=== PATIENT | female | born 1935 | race Caucasian/White ===

== ENCOUNTER → 2016-05-15 | Outpatient (CLI) | payer BC ==
[~2016-05-15] MED LIST: ACET500C35 PO; ATV5 PO; CALC-354 PO; LORA-741 PO; MRLP17 PO; OFLO0.3S4 OPR; PRED1SUS3; SIMV10TA2 PO
--- NOTE | 2016-05-17 12:48 | MAMMOGRAPHY REPORT ---
BILATERAL DIGITAL SCREENING MAMMOGRAM TOMOSYNTHESIS WITH CAD: 05/15/2016 CLINICAL HISTORY: Routine screening. Patient has no complaints. TECHNIQUE: Breast tomosynthesis in addition to standard 2D mammography was performed. Current study was also evaluated with a Computer Aided Detection (CAD) system. COMPARISON: Comparison is made to exams dated: 05/12/2015 mammogram, 05/07/2013 mammogram, 05/08/2014 curt mogram, 05/17/2012 mammogram, 05/17/2011 mammogram, and 05/13/2010 mammogram - [facility]. BREAST COMPOSITION: There are scattered areas of fibroglandular density in both breasts. FINDINGS: There are possible clustered microcalcifications in the upper outer posterior right breas t, for which additional spot magnification views are recommended. There is stable focal asymmetry in the anterior subareolar right breast, unchanged dating back to at least 05/12/2009, therefore likely benign. No other suspicious mass, architectural distortion or cl uster of microcalcifications is seen. IMPRESSION: ACR BI-RADS CATEGORY 0: INCOMPLETE EVALUATION: NEED ADDITIONAL IMAGING EVALUATION The possible clustered microcalcifications in the right upper outer quadrant need additional evaluat ion. The patient will be called to schedule an appointment. Approximately 10% of breast cancers are not detected with mammography. A negative mammographic repor t should not delay biopsy if a clinically suggestive mass is present. Sintia Moreau M.D. ay/:05/16/2016 17:26:44 Hand Sole Sewer: Edith JACKSON(Nii)(Yong), [facility] letter sent: Addl Imaging 0 BI-RADS Code: ACR BI-RADS Category 0: Incomplete Evaluation: Need Additional Imaging Evaluation
== END | disposition home or self-care (01) ==
LOC: C.MAMM 11:24
PROVIDERS: ATTEND Family Medicine
DX: Z12.31 Encounter for screening mammogram for malignant neoplasm of breast (principal); R92.8 Other abnormal and inconclusive findings on diagnostic imaging of breast

== ENCOUNTER → 2016-05-29 | Outpatient (CLI) | payer BC ==
--- NOTE | 2016-05-29 13:19 | MAMMOGRAPHY REPORT ---
UNILATERAL RIGHT DIGITAL DIAGNOSTIC MAMMOGRAM AND TARGETED RIGHT ULTRASOUND: 05/29/2016 CLINICAL HISTORY: 81-year-old woman called back from screening mammography for possible increasing m icrocalcifications in the right upper outer quadrant. At the time of diagnostic consultation, she al so reported an abnormal sensation behind the right nipple ("pins and needles") for which further son ographic evaluation was performed. TECHNIQUE: Spot magnification right CC and ML views were obtained. COMPARISON: Comparison is made to exams dated: 05/15/2016 mammogram, 05/12/2015 mammogram, 05/08/2014 ma mmogram, 05/07/2013 mammogram, 05/17/2012 mammogram, and 05/17/2011 mammogram - [facility]. BREAST COMPOSITION: There are scattered areas of fibroglandular density in the right breast. FINDINGS: Spot magnification views demonstrate a loose grouping of round and punctate microcalcific ations measuring 7 mm, in the upper outer middle to posterior right breast. No obvious associated a symmetry, mass or architectural distortion. When comparing back to prior available mammograms, the largest to my calcifications have been present dating back to at least 2008 but some of the smaller punctate microcalcifications are increased. This grouping is therefore indeterminate, warranting fu rther evaluation with tissue sampling. Targeted ultrasound was performed in the area of abnormal sensation around the areola and nipple of the right breast. No suspicious solid or cystic mass is identified. IMPRESSION: ACR BI-RADS CATEGORY 4: SUSPICIOUS, TARGETED ULTRASOUND ACR BI-RADS CATEGORY 4: SUSPICI OUS 1. Stereotactic guided right breast biopsy is recommended for a 7 mm loose grouping of round and pu nctate microcalcifications in the upper outer quadrant, slightly increased comparing to prior mammog vladislav. 2. No suspicious abnormality or evidence of malignancy seen on targeted ultrasound in an area of ab normal pins and needles sensation in the right subareolar breast. Therefore, clinical follow-up is recommended. These results and recommendations were discussed with the patient at the time of the exam. She tent atively scheduled right breast biopsy prior to leaving our department. Approximately 10% of breast cancers are not detected with mammography. A negative mammographic repor t should not delay biopsy if a clinically suggestive mass is present. Sintia Moreau M.D. ay/:05/29/2016 12:21:17 Storekeeper Steward: Jose Oquendo RT(R)(M), [facility] letter sent: Abnormal 4/5 BI-RADS Code: ACR BI-RADS Category 4: Suspicious Ultrasound BI-RADS: ACR BI-RADS Category 4: Suspic ious
== END | disposition home or self-care (01) ==
LOC: C.MAMM 09:56
PROVIDERS: ATTEND Internal Medicine Pulmonary Disease
DX: R92.0 Mammographic microcalcification found on diagnostic imaging of breast (principal)

== ENCOUNTER → 2016-06-01 | Outpatient (CLI) | payer BC ==
[2016-06-01 10:53] LABS: CHOLESTEROL/HDL RATIO 3.8
== END | disposition home or self-care (01) ==
LOC: C.LAB1850 09:28
PROVIDERS: ATTEND Family Medicine
DX: E78.5 Hyperlipidemia, unspecified (principal)

== ENCOUNTER 2016-06-19 12:35 | Emergency (ER) | payer BC ==
[~2016-06-19] VITALS: Ht 161.3 cm; Wt 72.6 kg
[~2016-06-19 12:35] MED LIST changes: -CALC-354 PO; -LORA-741 PO; -MRLP17 PO
[2016-06-19 12:40] VITALS: TEMP 36.7; Ht 161.3 cm; Wt 72.6 kg
[2016-06-19] MEDS ORDERED: LORA-741 PO (13:17)
[2016-06-19] MEDS ORDERED: MRLP17 PO (13:17)
--- NOTE | 2016-06-19 13:44 | DIAGNOSTIC IMAGING REPORT ---
PELVIS 1 OR 2 VIEW ROUTINE CLINICAL HISTORY: Pelvic pain status post trauma COMPARISON STUDY: No previous studies for comparison. FINDINGS: There is no SI joint diastases. There is no symphysis diastases. No fractures are visualized. Degenerative changes are present within the lower lumbar spine. IMPRESSION: No acute fractures identified. Electronically signed by: Sarabjit Kruger M.D. 06/19/2016 1:42 PM Dictated Date/Time: 06/19/2016 1:42 PM
[2016-06-19 14:17] LABS: BASO % 0.2 %; BASO ABS # 0.02 K/uL (0-0.2); COMPLETE YES; EOS % 2.4 %; HEMATOCRIT 41.2 % (37-47); IG% 0.2 %; LYMPH % 14.9 %; LYMPH ABS # 1.43 K/uL (1.2-3.4); MEAN CELL VOLUME 89.2 fL (80-100); MEAN CORPUSCULAR HEMOGLOBIN 30.3 pg (25-34); MEAN PLATELET VOLUME 9.3 fL (7.4-10.4); MONO % 4.2 %; NEUT % 78.1 %; PLATELET COUNT 285 K/uL (130-400); RED BLOOD COUNT 4.62 M/uL (4.2-5.4); WHITE BLOOD COUNT 9.61 K/uL (4.8-10.8)
[2016-06-19] MEDS ORDERED: CALC-354 PO (14:21)
[2016-06-19 14:25] LABS: BLOOD UREA NITROGEN 27 mg/dl (7-18); BUN/CREATININE RATIO 27.1 (10-20); CALCIUM 9.6 mg/dl (8.5-10.1); CARBON DIOXIDE 30 mmol/L (21-32); CHLORIDE 110 mmol/L (98-107); GLUCOSE 117 mg/dl (70-99); POTASSIUM 3.9 mmol/L (3.5-5.1); SODIUM 146 mmol/L (136-145)
[2016-06-19 14:51] LABS: PROTHROMBIN TIME (PATIENT) 10.2 SECONDS (9.0-12.0)
--- NOTE | 2016-06-19 17:17 | DIAGNOSTIC IMAGING REPORT ---
MRI OF THE BRAIN WITHOUT IV CONTRAST CLINICAL HISTORY: Fall. Leg weakness. COMPARISON STUDY: No priors. TECHNIQUE: MRI of the brain was performed utilizing various T1 and T2-weighted sequences in the axial, sagittal, and coronal planes. IV contrast was not administered for this examination. FINDINGS: Brain parenchyma: There are age-related involutional changes noting mild to moderate patchy subcortical and periventricular microangiopathic disease. There is no hemorrhage or mass effect. There is no restricted diffusion to suggest acute ischemia. Ellis-white matter differentiation is preserved. No extra-axial fluid collection is seen. The cerebellar tonsils are normal in configuration. Ventricles, sulci, and cisterns: Prominent secondary to involutional change. Pituitary and sella: Unremarkable. Intracranial vasculature: Normal flow voids are maintained at the skull base. Orbits: The bony orbits are grossly intact. Orbital contents are normal in appearance noting a right ocular lens implant. Sinuses and mastoids: Clear. Calvarium: Unremarkable. Cervical cord: Partially visualized cervical spinal cord is normal in morphology and signal intensity. IMPRESSION: No acute intracranial abnormality. Electronically signed by: Mark Mitchell M.D. 06/19/2016 5:15 PM Dictated Date/Time: 06/19/2016 5:13 PM
[2016-06-19] MEDS ORDERED: GADAVIST IV PRN (18:30)
--- NOTE | 2016-06-19 18:32 | DIAGNOSTIC IMAGING REPORT ---
MRI OF THE LUMBAR SPINE COMBO CLINICAL HISTORY: Fall. Leg weakness. COMPARISON STUDY: No priors. TECHNIQUE: MRI of the lumbar spine is performed utilizing various T1 and T2-weighted sequences in the axial and sagittal planes. Contrast-enhanced sequences were acquired following the IV administration of 7 cc of Gadavist. FINDINGS: Lumbar spine: Vertebral body height and alignment are maintained throughout the lumbar spine. There is straightening of the lumbar lordosis. The transverse and spinous processes are intact as imaged. There is no evidence of spondylolysis. No destructive bony lesion is seen. Degenerative endplate edema is seen from T12-L1 through L4-L5. Intervertebral discs: There is degenerative disc desiccation and loss of height throughout the lumbar spine. Loss of height is moderate at all levels, and severe at L3-L4 and L4-L5. Spinal cord: The visualized spinal cord is normal in morphology and signal intensity. The conus medullaris terminates at the level of L1. The nerve roots of the cauda equina are normal in morphology and signal intensity. No abnormal enhancement is identified on the postcontrast series. T12-L1: There is a posterior disc bulge with annular fissure. There is no significant acquired compromise of the central canal. Bilateral subarticular stenosis is observed. L1-L2: There is broad-based posterior disc bulging with annular fissure. In conjunction with hypertrophy of the ligamentum flavum there is mild acquired compromise of the central canal with a minimum AP diameter of 9 mm. There is bilateral subarticular stenosis, with possible impingement on the exiting bilateral L1 nerve roots. There is moderate left-sided neural foraminal stenosis secondary to facet arthropathy. L2-L3: There is broad-based posterior disc bulge eccentric to the left. There is no significant acquired compromise of the central canal at this level. There is bilateral subarticular stenosis, left greater than right. There may be impingement on the exiting left L2 nerve root. Facet arthropathy causes mild left-sided neural foraminal stenosis. L3-L4: There is broad-based posterior disc bulge. In conjunction with hypertrophy of the ligamentum flavum there is moderate acquired compromise of the central canal at this level with a minimum AP diameter of 6 mm. There is bilateral subarticular stenosis, with possible impingement on the exiting left L3 nerve root. The disc bulge likely abuts the transiting bilateral L4 nerve roots. L4-L5: There is broad-based posterior disc bulging with annular fissure. In conjunction with hypertrophy of the ligamentum flavum there is mild to moderate acquired compromise of the central canal at this level. The minimum AP canal diameter measures 5.5 mm. There is bilateral subarticular stenosis, with probable impingement on the exiting bilateral L4 and the transiting bilateral L5 nerve roots. Facet arthropathy causes mild bilateral neural foraminal stenosis. L5-S1: There is a small posterior disc bulge. In conjunction with hypertrophy of the ligamentum flavum there is mild acquired compromise of the central canal at this level with a minimum AP diameter of 6.5 mm. There is bilateral subarticular stenosis. The neural foramina appear clear. Facet arthropathy is of no consequence. Sacrum: The imaged sacrum is normal in morphology and signal intensity. Soft tissues: There is diffuse fatty atrophy of the paraspinous and psoas musculature. The partially imaged retroperitoneal structures are grossly unremarkable but incompletely evaluated. IMPRESSION: 1. Degenerative disc disease as above with multilevel degenerative endplate edema. 2. Moderate multilevel lumbosacral spondylosis with multilevel acquired compromise of the central canal. See discussion for detailed level by level analysis. 3. No fracture is identified. 4. There is no evidence of hematoma or posttraumatic abnormality. Dictated: 06/19/2016 5:42 PM Transcribed: 06/19/2016 6:31 PM Giuliano Electronically signed by: Mark Mitchell M.D. 06/19/2016 6:32 PM Dictated Date/Time: 06/19/2016 5:42 PM
--- NOTE | 2016-06-19 18:48 | EMERGENCY ROOM VISIT NOTE ---
History Report prepared by Rock: Louisa Mcmanus Under the Supervision of: Dr. Ousmane Beck M.D. 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 She has difficulty getting up from the ground. Today she was standing on a stool around 10 inches high outside in the bushes cleaning her windows. She went to step down from the stool, but fell and landed on her left buttock on a oleary root. She states that her leg weakness may have caused the fall. She was unable to get up from the ground and had to crawl to the patio to call her [id number]. She was walking normally prior to the fall. She is weak in both legs, but more weak in her left. She denies hitting her head, headache, neck pain, or arm weakness. She denies any chest pain, SOB, loss of bowel or bladder control or numbness in the genital area. She has not had any troubles with her speech. She notes that she had a bulging disc 7 years ago and had an epidural which left some chronic numbness in her left thigh muscle. She has not had any problems with her disc since then. She has a history of high cholesterol. Her brother had an abdominal aortic aneurysm but she denies any abdominal pain or back pain. 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 Pt denies head injury, arm weakness, loss of bowel or bladder control, numbness in genital area, speech difficulties. Review of Systems See HPI for pertinent positives & negatives. A total of 10 systems reviewed and were otherwise negative. Past Medical & Surgical Medical Problems: (1) High cholesterol Family History Abdominal aortic aneurysm (AAA) Social History Smoking Status: Never Smoker Marital Status: Occupation Status: retired Current/Historical Medications Scheduled Calcium Carbonate-Cholecalcife (Caltrate 600+D), 1 TAB PO TID Lorazepam (Ativan), 0.25 MG PO QPM Polyethylene (Miralax), 17 GM PO QPM Simvastatin (Zocor), 10 MG PO QPM Allergies Coded Allergies: Codeine (Verified Adverse Reaction, Unknown, "VERY SENSITIVE", 06/19/16) Physical Exam Vital Signs Date Time Temp Pulse Resp B/P Pulse Ox O2 Delivery O2 Flow Rate FiO2 06/19/16 16:25 108 18 128/88 98 Room Air 06/19/16 14:39 103 18 151/96 96 Room Air 06/19/16 13:01 112 06/19/16 12:40 36.7 118 18 151/79 91 Room Air Physical Exam Constitutional: Vital signs reviewed. Eyes: Pupils are equal round reactive to light. Conjunctiva are noninjected. ENT: Pharynx is clear without erythema or exudate. Mucous membranes are moist. Neck supple without meningeal signs. No midline tenderness to the cervical spine. Respiratory: Clear to auscultation bilaterally. Breath sounds are equal bilaterally. Cardiovascular: Regular rate and rhythm. No rubs or gallops. GI: Soft, nondistended and nontender. Bowel sounds are present. Musculoskeletal: No peripheral edema. No lower extremity tenderness. Integumentary: No cyanosis. Neurological: The patient is awake and alert. Cranial nerves II-XII are intact. Motor is 5 out of 5 all extremities. Numbness to the proximal left thigh anteriorly otherwise sensation is intact throughout the lower extremities and arms. No saddle anesthesia. Normal speech. No pronator drift. No limb ataxia. The patient was able to stand up only with assistance and felt unsteady. Psychiatric: Normal affect. Medical Decision & Procedures ER Provider Diagnostic Interpretation: X-ray results as stated below per interpretation by me and the radiologist. Radiology results as stated below per my review and the radiologist's interpretation: PELVIS 1 OR 2 VIEW ROUTINE CLINICAL HISTORY: Pelvic pain status post trauma COMPARISON STUDY: No previous studies for comparison. FINDINGS: There is no SI joint diastases. There is no symphysis diastases. No fractures are visualized. Degenerative changes are present within the lower lumbar spine. IMPRESSION: No acute fractures identified. Electronically signed by: Sarabjit Kruger M.D. 06/19/2016 1:42 PM Dictated Date/Time: 06/19/2016 1:42 PM MRI OF THE BRAIN WITHOUT IV CONTRAST CLINICAL HISTORY: Fall. Leg weakness. COMPARISON STUDY: No priors. TECHNIQUE: MRI of the brain was performed utilizing various T1 and T2-weighted sequences in the axial, sagittal, and coronal planes. IV contrast was not administered for this examination. FINDINGS: Brain parenchyma: There are age-related involutional changes noting mild to moderate patchy subcortical and periventricular microangiopathic disease. There is no hemorrhage or mass effect. There is no restricted diffusion to suggest acute ischemia. Ellis-white matter differentiation is preserved. No extra-axial fluid collection is seen. The cerebellar tonsils are normal in configuration. Ventricles, sulci, and cisterns: Prominent secondary to involutional change. Pituitary and sella: Unremarkable. Intracranial vasculature: Normal flow voids are maintained at the skull base. Orbits: The bony orbits are grossly intact. Orbital contents are normal in appearance noting a right ocular lens implant. Sinuses and mastoids: Clear. Calvarium: Unremarkable. Cervical cord: Partially visualized cervical spinal cord is normal in morphology and signal intensity. IMPRESSION: No acute intracranial abnormality. Electronically signed by: Mark Mitchell M.D. 06/19/2016 5:15 PM Dictated Date/Time: 06/19/2016 5:13 PM MRI OF THE LUMBAR SPINE COMBO CLINICAL HISTORY: Fall. Leg weakness. COMPARISON STUDY: No priors. TECHNIQUE: MRI of the lumbar spine is performed utilizing various T1 and T2-weighted sequences in the axial and sagittal planes. Contrast-enhanced sequences were acquired following the IV administration of 7 cc of Gadavist. FINDINGS: Lumbar spine: Vertebral body height and alignment are maintained throughout the lumbar spine. There is straightening of the lumbar lordosis. The transverse and spinous processes are intact as imaged. There is no evidence of spondylolysis. No destructive bony lesion is seen. Degenerative endplate edema is seen from T12-L1 through L4-L5. Intervertebral discs: There is degenerative disc desiccation and loss of height throughout the lumbar spine. Loss of height is moderate at all levels, and severe at L3-L4 and L4-L5. Spinal cord: The visualized spinal cord is normal in morphology and signal intensity. The conus medullaris terminates at the level of L1. The nerve roots of the cauda equina are normal in morphology and signal intensity. No abnormal enhancement is identified on the postcontrast series. T12-L1: There is a posterior disc bulge with annular fissure. There is no significant acquired compromise of the central canal. Bilateral subarticular stenosis is observed. L1-L2: There is broad-based posterior disc bulging with annular fissure. In conjunction with hypertrophy of the ligamentum flavum there is mild acquired compromise of the central canal with a minimum AP diameter of 9 mm. There is bilateral subarticular stenosis, with possible impingement on the exiting bilateral L1 nerve roots. There is moderate left-sided neural foraminal stenosis secondary to facet arthropathy. L2-L3: There is broad-based posterior disc bulge eccentric to the left. There is no significant acquired compromise of the central canal at this level. There is bilateral subarticular stenosis, left greater than right. There may be impingement on the exiting left L2 nerve root. Facet arthropathy causes mild left-sided neural foraminal stenosis. L3-L4: There is broad-based posterior disc bulge. In conjunction with hypertrophy of the ligamentum flavum there is moderate acquired compromise of the central canal at this level with a minimum AP diameter of 6 mm. There is bilateral subarticular stenosis, with possible impingement on the exiting left L3 nerve root. The disc bulge likely abuts the transiting bilateral L4 nerve roots. L4-L5: There is broad-based posterior disc bulging with annular fissure. In conjunction with hypertrophy of the ligamentum flavum there is mild to moderate acquired compromise of the central canal at this level. The minimum AP canal diameter measures 5.5 mm. There is bilateral subarticular stenosis, with probable impingement on the exiting bilateral L4 and the transiting bilateral L5 nerve roots. Facet arthropathy causes mild bilateral neural foraminal stenosis. L5-S1: There is a small posterior disc bulge. In conjunction with hypertrophy of the ligamentum flavum there is mild acquired compromise of the central canal at this level with a minimum AP diameter of 6.5 mm. There is bilateral subarticular stenosis. The neural foramina appear clear. Facet arthropathy is of no consequence. Sacrum: The imaged sacrum is normal in morphology and signal intensity. Soft tissues: There is diffuse fatty atrophy of the paraspinous and psoas musculature. The partially imaged retroperitoneal structures are grossly unremarkable but incompletely evaluated. IMPRESSION: 1. Degenerative disc disease as above with multilevel degenerative endplate edema. 2. Moderate multilevel lumbosacral spondylosis with multilevel acquired compromise of the central canal. See discussion for detailed level by level analysis. 3. No fracture is identified. 4. There is no evidence of hematoma or posttraumatic abnormality. Electronically signed by: Mark Mitchell M.D. 06/19/2016 6:32 PM Dictated Date/Time: 06/19/2016 5:42 PM Laboratory Results 06/19/16 13:25 Red Blood Count 4.62, Mean Corpuscular Volume 89.2, Mean Corpuscular Hemoglobin 30.3, Mean Corpuscular Hemoglobin Concent 34.0, Mean Platelet Volume 9.3, Neutrophils (%) (Auto) 78.1, Lymphocytes (%) (Auto) 14.9, Monocytes (%) (Auto) 4.2, Eosinophils (%) (Auto) 2.4, Basophils (%) (Auto) 0.2, Neutrophils # (Auto) 7.51, Lymphocytes # (Auto) 1.43, Monocytes # (Auto) 0.40, Eosinophils # (Auto) 0.23, Basophils # (Auto) 0.02 06/19/16 13:25 Test 06/19/16 13:25 White Blood Count 9.61 K/uL (4.8-10.8) Red Blood Count 4.62 M/uL (4.2-5.4) Hemoglobin 14.0 g/dL (12.0-16.0) Hematocrit 41.2 % (37-47) Mean Corpuscular Volume 89.2 fL (80-100) Mean Corpuscular Hemoglobin 30.3 pg (25-34) Mean Corpuscular Hemoglobin Concent 34.0 g/dl (32-36) Platelet Count 285 K/uL (130-400) Mean Platelet Volume 9.3 fL (7.4-10.4) Neutrophils (%) (Auto) 78.1 % Lymphocytes (%) (Auto) 14.9 % Monocytes (%) (Auto) 4.2 % Eosinophils (%) (Auto) 2.4 % Basophils (%) (Auto) 0.2 % Neutrophils # (Auto) 7.51 K/uL (1.4-6.5) Lymphocytes # (Auto) 1.43 K/uL (1.2-3.4) Monocytes # (Auto) 0.40 K/uL (0.11-0.59) Eosinophils # (Auto) 0.23 K/uL (0-0.5) Basophils # (Auto) 0.02 K/uL (0-0.2) RDW Standard Deviation 39.0 fL (36.4-46.3) RDW Coefficient of Variation 12.0 % (11.5-14.5) Immature Granulocyte % (Auto) 0.2 % Immature Granulocyte # (Auto) 0.02 K/uL (0.00-0.02) Prothrombin Time 10.2 SECONDS (9.0-12.0) Prothromb Time International Ratio 1.0 (0.9-1.1) Activated Partial Thromboplast Time 26.0 SECONDS (21.0-31.0) Partial Thromboplastin Ratio 1.0 Anion Gap 6.0 mmol/L (3-11) Estimated GFR () 61.6 Estimated GFR (Non- 53.2 BUN/Creatinine Ratio 27.1 (10-20) Calcium Level 9.6 mg/dl (8.5-10.1) Laboratory results as reviewed by me. ECG Indication: weakness (in the legs) Rate (beats per minute): 98 Rhythm: normal sinus Findings: no acute ischemic change, no ectopy ED Course 1259: The patient was evaluated in room B1. A complete history and physical exam was performed. 1428: I reevaluated the patient. She denies any pain at this time. I discussed the test results with her. She is waiting for MRI. 1525: We are still waiting on the MRI for the patient. The tech reports that there are problems with the machine causing delay. 1559: I reevaluated the patient. She states that she is comfortable. MRI is working on the problem which should be fixed soon. I informed the patient of this. She states that she is OK with waiting. 1826: I reevaluated the patient. She is not having any pain currently. She is still neurologically intact with deep tendon reflexes in the lower extremities. 1830: I discussed the MRI results with Dr. Mitchell, [facility] - radiology. He states that there is nothing acute on the MRI of the spine. There is no fracture, only spinal stenosis and disc disease. 1840: I reevaluated the patient. She was able to stand up and walk independently without much difficulty. She would like to go home. She has agreed to take a walker. I discussed the results and treatment plan with her. She verbalized understanding and agreement. She will be discharged home. Medical Decision This is an 81-year-old female who presents with weakness in her legs after a fall. Differential diagnosis includes compression fracture, pelvic fracture, lumbar disc disease, spinal cord injury, cauda equina syndrome, aortic aneurysm. I did perform a limited focused review of portions of the patient's old chart on the electronic medical record. The patient has had no recent pertinent visits to this hospital. I did evaluate the patient as noted above. The patient is complaining of leg weakness after falling today off of a 10 inch stepstool. She stated that she landed on her buttocks and hit her left hip on a tree stump. She denies having any pain in her pelvis or back. She has no headache or head injury. On exam she appears to be neurologically intact in the lower extremities with good strength but when she tries to stand up she is unable. I did perform a limited bedside ultrasound which did not show any evidence of abdominal aortic aneurysm. The entire aorta was not visualized secondary to bowel gas but that the visualized portions did not show any aneurysmal dilatation. IV access was established. The patient was placed on a continuous cardiac technologist. I did order and personally review the patient's 12-lead EKG and pelvic x-ray as described above. I did order and review the patient's blood work as noted in the electronic medical record. I did order an MRI of the brain and lumbar spine. I did review the images myself as well as the radiology report as described above. There is no evidence of CVA or intracranial abnormality. The lumbar spine shows degenerative changes and spinal stenosis but no evidence of fracture or acute process. I did reassess the patient. She is now able to walk and get up without significant difficulty. She does wish to go home at this time. She does not want to go to a rehabilitation hospital and doesn't feel she needs home help. She was advised follow up with her doctor and Dr. Hopper. She was discharged in good condition. Consults Time Called: 1824 Consulting Physician: Dr. Mitchell, [facility] - radiology Returned Call: [phone] I discussed the MRI results with him. He states that there is nothing acute in the MRI of the spine. There is no fracture, only spinal stenosis and disc disease. Impression Primary Impression: Ambulatory dysfunction Additional Impression: Fall Scribe Attestation The scribe's documentation has been prepared under my direct and personally reviewed by me in its entirety. I confirm that the note above accurately reflects all work, treatment, procedures, and medical decision making performed by me. Departure Information Dispostion Home / Self-Care Referrals Sasha Beck MD (PCP) Forms HOME CARE DOCUMENTATION FORM, IMPORTANT VISIT INFORMATION Patient Instructions My [facility] Additional Instructions You have been examined and treated today on an emergency basis only. This is not a substitute for, or an effort to provide, complete comprehensive medical care. It is impossible to recognize and treat all injuries or illnesses in a single emergency department visit. It is therefore important that you follow up closely with your physician and Dr. Hopper. Call as soon as possible for an appointment. Return for worsening symptoms or if you develop fever, vomiting, abdominal pain, loss of control of your bowel or bladder, numbness or weakness to your legs, numbness to your private area, difficulty urinating, or any other concerning symptoms. Problem Qualifiers Additional Impression: Fall Encounter type: initial encounter Qualified Codes: W19.XXXA - Unspecified fall, initial encounter
[2016-06-19 19:09] VITALS: BP 152/91; PULSE 89; O2SAT 98
== END 2016-06-19 19:14 | disposition home or self-care (01) ==
LOC: C.EDB 12:36
DX: R26.89 Other abnormalities of gait and mobility (principal); W19.XXXA Unspecified fall, initial encounter; E78.00 Pure hypercholesterolemia, unspecified

== ENCOUNTER → 2016-11-27 | Outpatient (CLI) | payer BC ==
[~2016-11-27] MED LIST changes: -ACET500C35 PO; -ATV5 PO; +CALC-354 PO; +LORA-741 PO; +MRLP17 PO; -OFLO0.3S4 OPR; -PRED1SUS3
== END | disposition home or self-care (01) ==
LOC: C.MAMM 11:29
PROVIDERS: ATTEND Family Medicine
DX: Z78.0 Asymptomatic menopausal state (principal)

== ENCOUNTER → 2017-05-16 | Outpatient (CLI) | payer BC ==
--- NOTE | 2017-05-17 07:57 | MAMMOGRAPHY REPORT ---
BILATERAL DIGITAL SCREENING MAMMOGRAM TOMOSYNTHESIS WITH CAD: 05/16/2017 CLINICAL HISTORY: Routine screening. Patient has no complaints. TECHNIQUE: Breast tomosynthesis in addition to standard 2D mammography was performed. Current study was also evaluated with a Computer Aided Detection (CAD) system. COMPARISON: Comparison is made to exams dated: 06/07/2016 mammogram, 06/07/2016 stereotactic biopsy, 05/07 mammogram, 05/15/2016 mammogram, 05/12/2015 mammogram, and 05/08/2014 mammogram - [facility]. BREAST COMPOSITION: There are scattered areas of fibroglandular density in both breasts. FINDINGS: No suspicious masses, calcifications, or areas of architectural distortion are noted in ei ther breast. There has been no significant interval change compared to prior exams. A biopsy clip is again noted within the right upper outer quadrant. IMPRESSION: ACR BI-RADS CATEGORY 2: BENIGN There is no mammographic evidence of malignancy. A 1 year screening mammogram is recommended. The pa tient will receive written notification of the results. Approximately 10% of breast cancers are not detected with mammography. A negative mammographic report should not delay biopsy if a clinically suggestive mass is present. Tisha Maldonado M.D. /:05/16/2017 12:16:54 Power Plant Operator: Edith VEE)(M), [facility] letter sent: Normal 1/2 BI-RADS Code: ACR BI-RADS Category 2: Benign
== END | disposition home or self-care (01) ==
LOC: C.MAMM 11:25
PROVIDERS: ATTEND Family Medicine
DX: Z12.31 Encounter for screening mammogram for malignant neoplasm of breast (principal)

== ENCOUNTER → 2017-06-01 | Outpatient (CLI) | payer BC ==
[2017-06-01 12:37] LABS: BASO % 0.3 %; BASO ABS # 0.02 K/uL (0-0.2); EOS % 4.5 %; EOS ABS # 0.32 K/uL (0-0.5); HEMOGLOBIN 15.2 g/dL (12.0-16.0); IG# 0.02 K/uL (0.00-0.02); LYMPH % 30.4 %; LYMPH ABS # 2.14 K/uL (1.2-3.4); MEAN CELL VOLUME 89.1 fL (80-100); MEAN CORPUSCULAR HEMOGLOBIN 30.8 pg (25-34); MEAN CORPUSCULAR HGB CONC 34.5 g/dl (32-36); MEAN PLATELET VOLUME 9.3 fL (7.4-10.4); MONO % 6.8 %; MONO ABS # 0.48 K/uL (0.11-0.59); NEUT % 57.7 %; NEUT ABS # 4.07 K/uL (1.4-6.5); PLATELET COUNT 289 K/uL (130-400); RED CELL DISTRIBUTION WIDTH SD 38.7 fL (36.4-46.3); WHITE BLOOD COUNT 7.05 K/uL (4.8-10.8)
[2017-06-01 13:09] LABS: ALBUMIN 3.9 gm/dl (3.4-5.0); ALT/SGPT 33 U/L (12-78); AST/SGOT 23 U/L (15-37); BLOOD UREA NITROGEN 18 mg/dl (7-18); CALCIUM 8.9 mg/dl (8.5-10.1); CARBON DIOXIDE 30 mmol/L (21-32); CHOLESTEROL 176 mg/dl (0-200); CREATININE 0.86 mg/dl (0.60-1.20); GLUCOSE 85 mg/dl (70-99); SODIUM 139 mmol/L (136-145)
[2017-06-01 13:20] LABS: ALKALINE PHOSPHATASE 87 U/L (45-117); LDL CHOLESTEROL CALCULATED 96 mg/dl; TOTAL PROTEIN 7.9 gm/dl (6.4-8.2)
== END | disposition home or self-care (01) ==
LOC: C.LAB1850 10:56
PROVIDERS: ATTEND Family Medicine
DX: R53.83 Other fatigue (principal); E78.5 Hyperlipidemia, unspecified

== ENCOUNTER 2017-09-14 18:39 | Emergency (ER) | payer BC ==
[~2017-09-14] VITALS: Ht 160 cm; Wt 76.7 kg
[2017-09-14 18:47] VITALS: TEMP 37; Ht 160 cm; Wt 76.7 kg
[2017-09-14] MEDS ORDERED: LIDOCAINE 1% BUFFERED INJ 20 ML VIAL INFIL ONE (20:30)
--- NOTE | 2017-09-14 21:00 | DIAGNOSTIC IMAGING REPORT ---
CT OF THE HEAD WITHOUT CONTRAST CLINICAL HISTORY: Facial trauma s/p fall. COMPARISON STUDY: MRI the brain June 19, 2016. TECHNIQUE: Helical axial images of the head were obtained without IV contrast. Automated exposure control was utilized for the study. A dose lowering technique was utilized adhering to the principles of ALARA. FINDINGS: No acute intracranial hemorrhage, midline shift or mass effect is present. Ventricular system is normal. Basilar cisterns are patent. There are no extra-axial collections. White matter hypodensities suggest moderate small vessel disease. There is no calvarial fracture. Visualized portions of the sinuses and mastoid air cells are clear. IMPRESSION: 1. No acute intracranial findings. 2. No calvarial fracture. Electronically signed by: Avery Torres M.D. 09/14/2017 8:59 PM Dictated Date/Time: 09/14/2017 8:56 PM
--- NOTE | 2017-09-14 21:18 | DIAGNOSTIC IMAGING REPORT ---
MAXILLOFACIAL CT WITHOUT CONTRAST CLINICAL HISTORY: Facial trauma s/p fall. COMPARISON STUDY: Maxillofacial CT July 25, 2006. TECHNIQUE: A maxillofacial CT was performed without IV contrast. Coronal and sagittal reformats were viewed. A dose lowering technique was utilized adhering to the principles of ALARA. FINDINGS: Alignment of the temporomandibular joints is anatomic. Note is made of a lucency which likely reflects an acute nondisplaced fracture through the mid aspect of the alveolar ridge of the maxilla which takes extends to the roots of the bilateral maxillary incisors with possible loosening of these 2 teeth. No additional acute fractures are identified on this exam. The orbital floors are intact. Globes are intact. There is no retrobulbar hematoma. IMPRESSION: Lucency suggestive of an acute nondisplaced fracture of the mid aspect of the alveolar ridge of the maxilla which extends to the roots of the bilateral medial maxillary incisors with possible loosening of these teeth. Electronically signed by: Avery Torres M.D. 09/14/2017 9:17 PM Dictated Date/Time: 09/14/2017 9:09 PM
--- NOTE | 2017-09-14 21:46 | DIAGNOSTIC IMAGING REPORT ---
L RIBS UNILATERAL WITH PA CHEST CLINICAL HISTORY: Left central anterior CP s/p fall. COMPARISON STUDY: Chest radiograph February 19, 2015. FINDINGS: There is no pneumothorax or pleural effusion. Linear right basilar opacity represents atelectasis or scarring. No airspace opacities are identified. Pulmonary vascularity is normal. No acute left rib fractures are identified. IMPRESSION: No pneumothorax. No acute left rib fractures identified. Electronically signed by: Avery Torres M.D. 09/14/2017 9:45 PM Dictated Date/Time: 09/14/2017 9:43 PM
--- NOTE | 2017-09-14 22:43 | EMERGENCY ROOM VISIT NOTE ---
ED Visit Note First contact with patient: 20:06 I did evaluate and examine this patient myself. I did guide management for the patient. I agree with the PA's assessment as discussed. Please see the PAs dictation for further details. I did independently review the CT and x-rays. She does have an alveolar fracture to the maxillary bone. OMFS was consulted and she will follow-up as an outpatient.
[2017-09-14] MEDS ORDERED: CHOL1TAB42 PO (23:31)
[2017-09-14] MEDS ORDERED: AMOX500C3 PO (23:35)
[2017-09-14 23:36] VITALS: PULSE 114; O2SAT 99
[2017-09-14] MEDS ORDERED: AMOXICILLIN HOME PACK 250 MG/TAB PO ONE (23:45)
[2017-09-14 23:55] VITALS: BP 170/110
--- NOTE | 2017-09-15 01:33 | EMERGENCY ROOM VISIT NOTE ---
History First contact with patient: 20:06 Chief Complaint: FALL Stated Complaint: FELL, SMASHED MOUTH- BLEEDING History of Present Illness The patient is a 82 year old female who presents to the Emergency Room with complaints of injuries after falling in her condo this evening. The patient was walking across her kitchen and living room with a dinner tray when she tripped and fell face first into a wall. She reports a cut inside her upper lip , as well as dental malalignment. She denies any loss of consciousness or significant headache, neck pain or back pain. The patient does report mild left anterior rib pain, believing that she may have fallen onto the tray. She denies any worsening chest pain with deep breathing, and also currently denies any shortness of breath. She denies any significant injuries to her extremities , and rates her pain a 5 out of 10. Tetanus immunization is up-to-date. Review of Systems HEENT: Denies dizziness, visual problems, hearing loss, tinnitus. Denies difficulty swallowing or oral lesions. PULMONARY: Denies cough, shortness of breath, sputum production or hemoptysis. CARDIOVASCULAR: Denies chest pain, palpitations, dyspnea on exertion, orthopnea or peripheral edema. GASTROINTESTINAL: Denies diarrhea, constipation, nausea, vomiting, or abdominal pain. GENITOURINARY: Denies dysuria, frequency, urgency or nocturia. NEUROLOGIC: Denies history of epilepsy, CVA, TIA or chronic headaches. MUSCULOSKELETAL: Denies history of joint tenderness/swelling. SKIN: Denies rashes or lesions. PSYCHIATRIC: Denies history of depression or mental illness. ENDOCRINE: Denies history of diabetes or thyroid disorders. Past Medical/Surgical History Medical Problems: (1) High cholesterol (2) Hyperlipidemia, Unspecified (3) Lumbago (4) Osteoporosis Nos (5) Vitamin D Deficiency, Unspecified Family History Abdominal aortic aneurysm (AAA) Social History Smoking Status: Never Smoker Alcohol Use: none Marital Status: Housing Status: lives alone Occupation Status: retired Current/Historical Medications Scheduled Amoxicillin (Amoxil), 500 MG PO TID Calcium Carbonate-Cholecalcife (Caltrate 600+D), 1 TAB PO TID Cholecalciferol (Vitamin D), 5,000 UNIT PO DAILY Lorazepam (Ativan), 0.25 MG PO QPM Polyethylene (Miralax), 17 GM PO QPM Simvastatin (Zocor), 10 MG PO QPM Physical Exam Vital Signs Date Time Temp Pulse Resp B/P (MAP) Pulse Ox O2 Delivery O2 Flow Rate FiO2 09/14/17 23:55 170/110 09/14/17 23:36 114 16 174/110 99 Room Air 170/109 09/14/17 18:47 37.0 112 16 182/100 93 Room Air Physical Exam CONSTITUTIONAL: Healthy and well nourished. Alert and oriented X 3 with positive affect. GCS 15. HEENT: Examination shows swelling of the upper lip. Pupils equal, round and reactive. No subconjunctival hemorrhage, epistaxis, hemotympanum, raccoon's eyes or ellswroth sign. Patient does not have any obvious focal tenderness to palpation of the facial bones or maxilla. OROPHARYNX: The patient has a posterior subluxation of the central mandibular incisors. She also has mild bleeding from the root of the teeth. She has a 3 cm stellate laceration of the upper lip wet mucosa. The laceration does not involve the maxillary frenulum. No tongue laceration noted. The patient is able to open and close without mandible discomfort. NECK: Full active range of motion without discomfort. RESPIRATORY: Clear to auscultation bilaterally with no wheezing, crackles, rhonchi or stridor. CARDIOVASCULAR: Regular rate and rhythm with no murmurs, rubs or gallops. GASTROINTESTINAL: Bowel sounds present in all quadrants. Soft and nontender to palpation. MUSCULOSKELETAL: Full range of motion of all joints without discomfort. INTEGUMENTARY: No rash or other significant dermatologic conditions noted. NEUROLOGIC: No focal neurologic deficits noted. Upper and lower extremities are sensory intact. Medical Decision & Procedures ER Provider Diagnostic Interpretation: My interpretation of an ECG shows a sinus tachycardia Farias without ST elevation or other conduction abnormalities. Noncontrast CT of the facial bones shows an alveolar ridge fracture that extends to the root of her central incisors. Radiologist report is as follows: MAXILLOFACIAL CT WITHOUT CONTRAST CLINICAL HISTORY: Facial trauma s/p fall. COMPARISON STUDY: Maxillofacial CT July 25, 2006. TECHNIQUE: A maxillofacial CT was performed without IV contrast. Coronal and sagittal reformats were viewed. A dose lowering technique was utilized adhering to the principles of ALARA. FINDINGS: Alignment of the temporomandibular joints is anatomic. Note is made of a lucency which likely reflects an acute nondisplaced fracture through the mid aspect of the alveolar ridge of the maxilla which takes extends to the roots of the bilateral maxillary incisors with possible loosening of these 2 teeth. No additional acute fractures are identified on this exam. The orbital floors are intact. Globes are intact. There is no retrobulbar hematoma. IMPRESSION: Lucency suggestive of an acute nondisplaced fracture of the mid aspect of the alveolar ridge of the maxilla which extends to the roots of the bilateral medial maxillary incisors with possible loosening of these teeth. Noncontrast CT of the head does not show any acute intracranial bleed, cervical spine fractures or significant degenerative disease. Radiologist report is as follows: CT OF THE HEAD WITHOUT CONTRAST CLINICAL HISTORY: Facial trauma s/p fall. COMPARISON STUDY: MRI the brain June 19, 2016. TECHNIQUE: Helical axial images of the head were obtained without IV contrast. Automated exposure control was utilized for the study. A dose lowering technique was utilized adhering to the principles of ALARA. FINDINGS: No acute intracranial hemorrhage, midline shift or mass effect is present. Ventricular system is normal. Basilar cisterns are patent. There are no extra-axial collections. White matter hypodensities suggest moderate small vessel disease. There is no calvarial fracture. Visualized portions of the sinuses and mastoid air cells are clear. IMPRESSION: 1. No acute intracranial findings. 2. No calvarial fracture. My interpretation of left rib x-rays with a PA chest view does not show any obvious rib fractures or pneumothorax. Radiologist report is as follows: L RIBS UNILATERAL WITH PA CHEST CLINICAL HISTORY: Left central anterior CP s/p fall. COMPARISON STUDY: Chest radiograph February 19, 2015. FINDINGS: There is no pneumothorax or pleural effusion. Linear right basilar opacity represents atelectasis or scarring. No airspace opacities are identified. Pulmonary vascularity is normal. No acute left rib fractures are identified. IMPRESSION: No pneumothorax. No acute left rib fractures identified. Medications Administered Medications (Trade) Dose Ordered Sig/Alecia Route Start Time Stop Time Status Last Admin Dose Admin Amoxicillin (Amoxil 250MG Home Pack) 1 homepack UD ONCE PO 09/14/17 23:45 09/14/17 23:46 DC 09/14/17 23:45 1 HOMEPACK Procedure The upper lip wet mucosal laceration repair was performed under local anesthesia after receiving verbal consent from the patient. Using buffered 1% lidocaine without epinephrine, good local anesthesia was administered. After the laceration was anesthetized, 5-0 Vicryl simple interrupted and inverted sutures x3 were used to approximate the wound. ED Course Patient history and physical exam were performed. Nurse's notes were reviewed. Vital signs were reviewed, showing an elevated blood pressure of 182/100. Patient does not appear in any acute distress. Because the patient was complaining of left chest pain, the triage nurse did perform a 12-lead ECG that showed a sinus tachycardia without any acute findings. Upon further close exam , the patient has tenderness to palpation across the anterior chest wall, consistent with chest wall injury. Noncontrast CT of the facial bones shows a fracture along the alveolar ridge that extends to the central maxillary incisor roots. Noncontrast CT of the head was normal. X-rays of the left ribs with a PA chest view did not show any evidence for fractures or pneumothorax. The upper lip mucosal laceration was repaired under local anesthesia. The case was reviewed with Dr. Beck, ED attending physician, who agrees with workup and recommends consultation with Dr. Whelan, maxillofacial surgeon transitional care manager. Dr. Whelan reviewed CT findings, and stated that she could follow-up with a regular dentist. The patient reports that she has seen, and is good friends with Dr. Jaimes. She reports that she will contact him for further follow-up. The patient will be provided a home pack and prescription for amoxicillin. She was encouraged to intermittently apply ice to the lip. Ibuprofen or Tylenol as needed for pain. She was also encouraged to intermittently apply ice to the chest wall, and follow-up with her PCP as needed for further management, as well as to recheck her blood pressure which was also elevated at the time of discharge. The patient was happy with plan of care, and voiced understanding of all discharge instructions, denying any significant discomfort at the time of discharge. Medical Decision Medication Reconcilliation Current Medication List: was personally reviewed by me Blood Pressure Screening Patient's blood pressure: Elevated blood pressure Blood pressure disposition: Referred to PCP Impression Primary Impression: Dental trauma Additional Impressions: Lip laceration Contusion of left chest wall Fall in home Departure Information Prescriptions Amoxicillin (AMOXIL) 500 Mg Cap 500 MG PO TID for 10 Days, #30 CAP Prov: Ed James PA 09/14/17 Referrals Sasha Beck MD (PCP) Patient Instructions [facility] Problem Qualifiers Primary Impression: Dental trauma Encounter type: initial encounter Qualified Codes: S09.93XA - Unspecified injury of face, initial encounter Additional Impressions: Lip laceration Encounter type: initial encounter Qualified Codes: S01.511A - Laceration without foreign body of lip, initial encounter Contusion of left chest wall Encounter type: initial encounter Qualified Codes: S20.212A - Contusion of left front wall of thorax, initial encounter Fall in home Encounter type: initial encounter Qualified Codes: W19.XXXA - Unspecified fall, initial encounter; Y92.009 - Unspecified place in unspecified non- institutional (private) residence as the place of occurrence of the external cause
== END 2017-09-14 23:57 | disposition home or self-care (01) ==
LOC: C.EDB 18:40 → C.EDD 23:57
DX: S03.2XXA Dislocation of tooth, initial encounter (principal); S01.511A Laceration without foreign body of lip, initial encounter; W01.198A Fall on same level from slipping, tripping and stumbling with subsequent striking against other object, initial encounter; R03.0 Elevated blood-pressure reading, without diagnosis of hypertension; R07.81 Pleurodynia; E78.5 Hyperlipidemia, unspecified; Z79.899 Other long term (current) drug therapy

== ENCOUNTER 2021-10-28 20:55 | Observation (INO) ==
[2021-10-28] MEDS ORDERED: SODIUM CHLORIDE 0.9% 500 ML IV SCH (21:45)
--- NOTE | 2021-10-28 22:00 | XRay Report ---
SINGLE VIEW CHEST CLINICAL HISTORY: Fall. Generalized weakness. FINDINGS: An AP, portable, upright chest radiograph is compared to study dated 06/14/2020. The examina tion is degraded by portable technique and patient rotation. The heart is enlarged noting atheroscler otic calcification of the thoracic aorta. The pulmonary vasculature is noncongested. Chronic intersti tial thickening is similar to previous. The lungs and pleural spaces are clear noting bibasilar scarr ing/atelectasis. No pneumothorax is seen. The skeletal structures are osteopenic. The bony thorax is grossly intact. IMPRESSION: Cardiomegaly with no active disease in the chest. ACT 112: Negative or not required by law. Electronically signed by: Mark Mitchell M.D. 10/28/2021 9:58 PM
--- NOTE | 2021-10-28 22:02 | XRay Report ---
SINGLE VIEW PELVIS CLINICAL HISTORY: Fall. FINDINGS: An AP, portable, supine pelvic radiograph is compared to study dated 03/22/2018. The skeleta l structures are osteopenic. There is no radiographic evidence of acute fracture involving the hips o r bony pelvis. Mild to moderate arthritic change and joint space narrowing is seen in the hips. There is sclerotic change in the sacroiliac joints and pubic symphysis. Lumbosacral spondylosis is partial ly visualized. The overlying soft tissues are within normal limits. IMPRESSION: No acute bony abnormality is identified. Electronically signed by: Mark Mitchell M.D. 10/28/2021 10:01 PM
[2021-10-28 22:15] LABS: Basophils # (auto) 0.03 K/uL (0-0.2); Basophils % (auto) 0.3 %; Eosinophils # (auto) 0.19 K/uL (0-0.50); Eosinophils % (auto) 1.6 %; Hematocrit (blood only) 40.3 % (34.1-44.9); Hemoglobin 14.1 g/dl (12.0-16.0); Immature Granulocytes # (auto) 0.04 K/uL (0.00-0.02); Immature Granulocytes % (auto) 0.3 %; Lymphocytes % (auto) 13.4 %; Mean Corpuscular Hemoglobin 30.6 pg (25.0-34.0); Mean Corpuscular Volume 87.4 fL (80.0-100.0); Mean Platelet Volume 9.3 fL (9.4-12.3); Monocytes # (auto) 0.52 K/uL (0.24-0.82); Monocytes % (auto) 4.3 %; Neutrophils % (auto) 80.1 %; Platelet Count 265 K/uL (130-400); RDW Coefficient of Variation 11.9 % (11.5-14.5); RDW Standard Deviation 37.9 fL (36.4-46.3); Red Blood Count 4.61 M/uL (3.93-5.22); White Blood Count 11.98 K/ul (4.8-10.8)
--- NOTE | 2021-10-28 22:27 | CT Scan Report ---
CT SCAN OF THE BRAIN WITHOUT IV CONTRAST CLINICAL HISTORY: Fall. COMPARISON STUDY: CT of the brain dated 04/22/2020. TECHNIQUE: Unenhanced axial CT scan of the brain is performed from the vertex to the skull base. A do se lowering technique was utilized adhering to the principles of ALARA. FINDINGS: Brain parenchyma: There is age-related involutional change noting mild subcortical and periventricula r microangiopathic disease. There is no hemorrhage, mass effect, or evidence of acute territorial isc hemia by CT criteria. Ellis-white matter differentiation is preserved. No extra-axial fluid collection is seen. Ventricles, sulci, cisterns: Prominent secondary to involutional change. Intracranial vasculature: There is atherosclerotic calcification of the cavernous carotid arteries. Calvarium: The skeletal structures are osteopenic. No depressed calvarial fracture is seen. Sinuses and mastoids: The visualized paranasal sinuses are clear. The mastoid air cells are well pneu matized. Orbits: The bony orbits are grossly intact. There are bilateral ocular lens implants. IMPRESSION: There is no hemorrhage, mass effect, or evidence of acute territorial ischemia by CT jennifer gannon. ACT 112: Negative or not required by law. Electronically signed by: Mark Mitchell M.D. 10/28/2021 10:24 PM
--- NOTE | 2021-10-28 22:29 | Emergency Department Note ---
Impression & Plan Weakness, Elevated troponin I level ED Provider Note NAME: RABIA HANDY AGE: 86 SEX: F : 1935 ARRIVES VIA: Walk-In INFORMANT: Patient, the patient's family member ED PROVIDER(S): Ronaldo Lozano DO CHIEF COMPLAINT: Weakness HPI: The patient is an 86-year-old female who presented to the emergency department for an evaluation of generalized weakness. The patient states that she had a fall while she was at her home. She states she slid down against her left shoulder and left hip. She has no pain but states that she could not get off the floor. She states that when she tried to stand up she had very severe weakness in both lower extremities. The patient states that she has been compliant with her outpatient medications. She denies having any dysuria or frequency. She denies having any headache or vomiting. She does complain of some nausea. The patient denies having any black or bloody bowel movements. She denies having any chest pain or recent traveling. She denies having any swelling in her legs. The patient states when the ambulance arrived they were able to help her to her feet but she was not able to stand without having "rubbery legs". ROS: See above HPI for pertinent positives & negatives. A total of 10 systems reviewed and were otherwise negative. PAST MEDICAL HISTORY: See Below PAST SURGICAL HISTORY: See Below FAMILY HISTORY: See Below SOCIAL HISTORY: See Below HOME MEDICATIONS: See Below ALLERGIES: See Below VITALS: See Below PHYSICAL EXAMINATION: GENERAL: Patient is awake alert in no acute distress patient is resting comfortably and showing no signs of anxiety EYES: The conjunctivae are clear. The pupils are round and reactive. EARS, NOSE, MOUTH AND THROAT: The nose is without any evidence of any deformity. NECK: The neck is nontender and supple. RESPIRATORY: Normal respiratory effort is noted there is no evidence of wheezing rhonchi or rales CARDIOVASCULAR: Tachycardic rate with regular rhythm was noted. There is no definite murmur. GASTROINTESTINAL: The abdomen is soft. Abdomen is nontender. MUSCULOSKELETAL/EXTREMITIES: There is no evidence of gross deformity full range of motion is noted in the hips and shoulders. SKIN: There is no obvious evidence of any rash. There are no petechiae, pallor or cyanosis noted. NEUROLOGIC: Patient is awake alert and oriented x3 strength is symmetric patellar reflexes are 2+ bilaterally MEDICAL DECISION MAKING: The patient is an 86-year-old female who presented to the emergency department for an evaluation of generalized weakness. The patient was at home when she "slid to the ground". She states she did not injure herself but she noticed that she could not stand up. Normally she is able to stand up on her own. The patient states that she has significant leg weakness. She denies having any back pain. She had no focal neurologic deficits but on multiple occasions she could not stand or ambulate very well. I discussed patient's laboratory and radiographic studies with her. She was found to have an elevated troponin. The patient has no significant EKG changes compared to previous. She does have underlying tachycardia which she states she has been diagnosed with in the past. This is not new. She has no shortness of breath. She is not hypoxic. I discussed the patient's condition with her. She tried to ambulate in the emergency department and was unable to do so at her baseline. For this reason I will discuss her case with the on-call [facility]ist. Triage Nursing notes reviewed. Prior medical records reviewed Vital Signs: reviewed and remarkable for tachycardia. Differential diagnosis: Infection, dehydration, metabolic abnormality, hypo/hyperglycemia, electrolyte disturbance, anemia, hypoxia, cardiac sources, intracerebral event, toxicologic, neurologic, as well as other pathologies. ER treatment provided: See below Diagnostics interpreted by me: ECG: EKG was obtained in the emergency department. My interpretation is sinus tachycardia at 105 bpm. There is no ectopy. There is no acute ST segment abnormalities noted. This was compared to a tracing from September 14, 2017. No changes were noted. Cardiac Monitoring: An order was placed for continuous cardiac monitoring. The monitor shows a rate of 110 bpm with sinus tachycardia. Laboratory studies: As stated above and show below. Imaging studies: See below Consultation(s): I discussed this case with Dr. Dunn who is on-call for the [facility]ist. Past Med/Surg History Medical History Anxiety Basal cell carcinoma (BCC) of dorsum of nose WITH EXCISION Chronic back pain Degenerative disc disease Falls frequently FREQUENT Fracture of sacrum HEALED Hearing deficit History of CVA (cerebrovascular accident) Hx of fracture LUMBAR AREA> HEALED Hyperlipidemia Hypothyroidism Idiopathic peripheral neuropathy Lower extremity numbness Maxillary fracture HAIRLINE 09/14/2017 AFTER FALL Osteoporosis Parkinsonism Scoliosis Spinal stenosis Tinnitus resolved Surgical History H/O hysterectomy with unilateral oophorectomy 1979 R H/O left cataract extraction H/O Moh's micrographic surgery for skin cancer 2019 H/O oophorectomy 1969 L H/O right cataract extraction History of appendectomy 1969 History of breast biopsy 2017 R BENIGN History of colonoscopy History of tonsillectomy and adenoidectomy 1943 S/P trigger finger release L HAND S/P wrist surgery L PLATE Family History Son Family history of diabetes mellitus Daughter Family history of diabetes mellitus Mother Cervical cancer Father Myocardial infarction Brother Myocardial infarction Denies family history of Ovarian cancer Prostate cancer Breast cancer Colorectal cancer Social History Smoking Status: Never smoker Second Hand Exposure: No; Hx Alcohol Use: No Hx Substance Use: No Preferred Language: Swedish Communication Ability: Effective Visual Impairment: No Limitations Hearing Ability: Use of Hearing Aid Learning Manager Required: No Beliefs That Will Affect Care: None marital status: Single Current Living Situation: Alone current occupational status: retired How many Children do You have: 2 Feels Safe at Home: Yes Childhood Exposure to Second-Hand Smoke: Yes Diet Comment: med. caffeine: No during the past year weight has: remained stable Dental Care, Regularly: Yes Physical Activity Frequency: Daily Seatbelt Use: always Sunscreen Use: No Assistive Devices: Cane, Glasses, Hearing Aid - Bilateral and Walker Allergies Allergies Allergy/AdvReac Type Severity Reaction Status Date / Time adhesive Allergy Rash Verified 10/04/21 13:29 levetiracetam [From Kera] AdvReac Intermediate worse Verified 10/04/21 13:29 tremor codeine AdvReac Mild Vomiting Verified 10/04/21 13:29 Home Meds Home Medications Medication Instructions Recorded Confirmed calcium carbonate 600 mg-vitamin 1 tab PO BID 10/12/17 10/04/21 D3 20 mcg (800 unit) chewable tablet (Caltrate 600 plus D) cholecalciferol (vitamin D3) 125 5,000 unit PO QAM 10/12/17 10/04/21 mcg (5,000 unit) tablet (Vitamin D3) polyethylene glycol 3350 17 gram 17 g PO HS 10/12/17 10/04/21 oral powder packet (Miralax) mecobalamin (vitamin B12) 1,000 1,000 mcg PO QAM 04/07/19 10/04/21 mcg chewable tablet aspirin 81 mg tablet,delayed 81 mg PO HS 10/14/19 10/04/21 release (Adult Aspirin Regimen) Previous Rx's Medication Instructions Recorded risedronate 35 mg tablet (Actonel) 35 mg PO WEEKLY #4 tabs 08/01/18 Wheeled Walker #1 ea 01/15/19 Lift Chair #1 ea 01/12/21 atorvastatin 40 mg tablet 40 mg PO DAILY #90 tabs 05/18/21 ibuprofen 600 mg tablet 600 mg PO BID PRN pain #60 tabs 08/11/21 lorazepam 0.5 mg tablet 0.25 mg PO DAILY PRN tremor and 10/21/21 anxiety #30 tabs Results & Data (ED) Vital Signs Vital Signs - 24 hr 10/28/21 21:06 10/29/21 00:56 Temperature 37.3 C Temperature Source Oral Pulse Rate 103 H Pulse Rate [Right Finger] 110 H Respiratory Rate 20 18 Respiratory Effort / Characteristics Non-Labored Spontaneous Respiratory Depth Normal Blood Pressure 158/90 H Blood Pressure [Right Arm] 136/87 Blood Pressure Mean 112 Blood Pressure Mean [Right Arm] 103 Pulse Oximetry 93 96 Oxygen Delivery Method Room Air Room Air Sepsis New/Unexplained Change in Mental Status N/A Sepsis Action Taken by Nursing No Action Required Home Medications Current Medication List: was personally reviewed by me Laboratory Data Attestation: I reviewed the patient's lab results. Result diagrams: 10/28/21 22:02 10/28/21 22:02 Lab Results 10/28/21 10/28/21 10/28/21 Range/Units 22:02 22:02 22:02 WBC 11.98 H (4.8-10.8) K/ul RBC 4.61 (3.93-5.22) M/uL Hgb 14.1 (12.0-16.0) g/dl Hct 40.3 (34.1-44.9) % MCV 87.4 (80.0-100.0) fL MCH 30.6 (25.0-34.0) pg MCHC 35.0 (32.0-36.0) g/dL RDW Std Deviation 37.9 (36.4-46.3) fL RDW Coeff of Aashish 11.9 (11.5-14.5) % Plt Count 265 (130-400) K/uL MPV 9.3 L (9.4-12.3) fL Immature Gran % (Auto) 0.3 % Neut % (Auto) 80.1 % Lymph % (Auto) 13.4 % [place] % (Auto) 4.3 % Eos % (Auto) 1.6 % Baso % (Auto) 0.3 % Neut # (Auto) 9.60 H (1.4-6.5) K/uL Lymph # (Auto) 1.60 (1.2-3.4) K/uL [place] # (Auto) 0.52 (0.24-0.82) K/uL Eos # (Auto) 0.19 (0-0.50) K/uL Baso # (Auto) 0.03 (0-0.2) K/uL Immature Gran # (Auto) 0.04 H (0.00-0.02) K/uL PT Cancelled INR Cancelled APTT Cancelled PTT Ratio Cancelled Sodium 141 (136-145) mmol/L Potassium 3.8 (3.5-5.1) mmol/L Chloride 106 (98-107) mmol/L Carbon Dioxide 26 (21-32) mmol/L Anion Gap 9 (3-11) BUN 27 H (6-23) mg/dl Creatinine 1.13 (0.6-1.2) mg/dl Est Cr Clr Drug Dosing Not Reportable Est GFR ( Amer) 51.3 ml/min Est GFR (Non-Af Amer) 44.3 ml/min BUN/Creatinine Ratio 23.9 H (10-20) Glucose 106 H (70-99(Fasting)) mg/dl Calcium 9.3 (8.5-10.1) mg/dl Magnesium 2.1 (1.7-2.4) mg/dl Total Bilirubin 0.7 (0.2-1.0) mg/dl AST 22 (13-39) U/L ALT 18 (7-52) U/L Alkaline Phosphatase 77 (34-104) U/L Troponin I High Sens 17.9 H (0-14) pg/ml Total Protein 7.0 (6.0-8.3) gm/dl Albumin 4.3 (3.4-5.0) gm/dl Globulin 2.7 (2.5-4.0) gm/dl Albumin/Globulin Ratio 1.6 (0.9-2) TSH (0.300-4.500) uIu/ml Urine Color Urine Appearance (Clear) Urine pH (4.5-7.5) Ur Specific [place] (1.000-1.030) Urine Protein (Negative) Urine Glucose (UA) (Negative) Urine Ketones (Negative) Urine Blood (Negative) Urine Nitrite (Negative) Urine Bilirubin (Negative) Urine Urobilinogen (Negative) Ur Leukocyte Esterase (Negative) Urine WBC (Auto) (0-5) /hpf Urine RBC (Auto) (0-4) /hpf U Hyaline Cast (Auto) (0-5) /lpf U Epithel Cells (Auto) (0-5) /lpf Urine Bacteria (Auto) (Negative) 10/28/21 10/28/21 10/29/21 Range/Units 22:02 22:21 00:03 WBC (4.8-10.8) K/ul RBC (3.93-5.22) M/uL Hgb (12.0-16.0) g/dl Hct (34.1-44.9) % MCV (80.0-100.0) fL MCH (25.0-34.0) pg MCHC (32.0-36.0) g/dL RDW Std Deviation (36.4-46.3) fL RDW Coeff of Aashish (11.5-14.5) % Plt Count (130-400) K/uL MPV (9.4-12.3) fL Immature Gran % (Auto) % Neut % (Auto) % Lymph % (Auto) % [place] % (Auto) % Eos % (Auto) % Baso % (Auto) % Neut # (Auto) (1.4-6.5) K/uL Lymph # (Auto) (1.2-3.4) K/uL [place] # (Auto) (0.24-0.82) K/uL Eos # (Auto) (0-0.50) K/uL Baso # (Auto) (0-0.2) K/uL Immature Gran # (Auto) (0.00-0.02) K/uL PT 10.8 INR 1.0 APTT 29.2 PTT Ratio 1.1 Sodium (136-145) mmol/L Potassium (3.5-5.1) mmol/L Chloride (98-107) mmol/L Carbon Dioxide (21-32) mmol/L Anion Gap (3-11) BUN (6-23) mg/dl Creatinine (0.6-1.2) mg/dl Est Cr Clr Drug Dosing Est GFR ( Amer) ml/min Est GFR (Non-Af Amer) ml/min BUN/Creatinine Ratio (10-20) Glucose (70-99(Fasting)) mg/dl Calcium (8.5-10.1) mg/dl Magnesium (1.7-2.4) mg/dl Total Bilirubin (0.2-1.0) mg/dl AST (13-39) U/L ALT (7-52) U/L Alkaline Phosphatase (34-104) U/L Troponin I High Sens (0-14) pg/ml Total Protein (6.0-8.3) gm/dl Albumin (3.4-5.0) gm/dl Globulin (2.5-4.0) gm/dl Albumin/Globulin Ratio (0.9-2) TSH 2.480 (0.300-4.500) uIu/ml Urine Color Yellow Urine Appearance Clear (Clear) Urine pH 7.0 (4.5-7.5) Ur Specific [place] 1.006 (1.000-1.030) Urine Protein Negative (Negative) Urine Glucose (UA) Negative (Negative) Urine Ketones Negative (Negative) Urine Blood Negative (Negative) Urine Nitrite Negative (Negative) Urine Bilirubin Negative (Negative) Urine Urobilinogen Negative (Negative) Ur Leukocyte Esterase Trace H (Negative) Urine WBC (Auto) 1-5 (0-5) /hpf Urine RBC (Auto) 0-4 (0-4) /hpf U Hyaline Cast (Auto) 0 (0-5) /lpf U Epithel Cells (Auto) 20-30 H (0-5) /lpf Urine Bacteria (Auto) Negative (Negative) 10/29/21 Range/Units 00:03 WBC (4.8-10.8) K/ul RBC (3.93-5.22) M/uL Hgb (12.0-16.0) g/dl Hct (34.1-44.9) % MCV (80.0-100.0) fL MCH (25.0-34.0) pg MCHC (32.0-36.0) g/dL RDW Std Deviation (36.4-46.3) fL RDW Coeff of Aashish (11.5-14.5) % Plt Count (130-400) K/uL MPV (9.4-12.3) fL Immature Gran % (Auto) % Neut % (Auto) % Lymph % (Auto) % [place] % (Auto) % Eos % (Auto) % Baso % (Auto) % Neut # (Auto) (1.4-6.5) K/uL Lymph # (Auto) (1.2-3.4) K/uL [place] # (Auto) (0.24-0.82) K/uL Eos # (Auto) (0-0.50) K/uL Baso # (Auto) (0-0.2) K/uL Immature Gran # (Auto) (0.00-0.02) K/uL PT INR APTT PTT Ratio Sodium (136-145) mmol/L Potassium (3.5-5.1) mmol/L Chloride (98-107) mmol/L Carbon Dioxide (21-32) mmol/L Anion Gap (3-11) BUN (6-23) mg/dl Creatinine (0.6-1.2) mg/dl Est Cr Clr Drug Dosing Est GFR ( Amer) ml/min Est GFR (Non-Af Amer) ml/min BUN/Creatinine Ratio (10-20) Glucose (70-99(Fasting)) mg/dl Calcium (8.5-10.1) mg/dl Magnesium (1.7-2.4) mg/dl Total Bilirubin (0.2-1.0) mg/dl AST (13-39) U/L ALT (7-52) U/L Alkaline Phosphatase (34-104) U/L Troponin I High Sens 24.9 H (0-14) pg/ml Total Protein (6.0-8.3) gm/dl Albumin (3.4-5.0) gm/dl Globulin (2.5-4.0) gm/dl Albumin/Globulin Ratio (0.9-2) TSH (0.300-4.500) uIu/ml Urine Color Urine Appearance (Clear) Urine pH (4.5-7.5) Ur Specific [place] (1.000-1.030) Urine Protein (Negative) Urine Glucose (UA) (Negative) Urine Ketones (Negative) Urine Blood (Negative) Urine Nitrite (Negative) Urine Bilirubin (Negative) Urine Urobilinogen (Negative) Ur Leukocyte Esterase (Negative) Urine WBC (Auto) (0-5) /hpf Urine RBC (Auto) (0-4) /hpf U Hyaline Cast (Auto) (0-5) /lpf U Epithel Cells (Auto) (0-5) /lpf Urine Bacteria (Auto) (Negative) Administered Medications Discontinued Medications Sodium Chloride (Nss) 500 mls @ 999 mls/hr IV .Q31M PRIMO Stop: 10/28/21 22:15 Last Infusion: 10/28/21 23:19 Dose: 0 mls/hr Documented By: Admin: 10/28/21 22:29 Dose: 999 mls/hr Documented By: [facility] Imaging Data Radiologist's Impression: Chest X-Ray 10/28/21 21:39 SINGLE VIEW CHEST CLINICAL HISTORY: Fall. Generalized weakness. FINDINGS: An AP, portable, upright chest radiograph is compared to study dated 06/14/2020. The examination is degraded by portable technique and patient rotation. The heart is enlarged noting atherosclerotic calcification of the thoracic aorta. The pulmonary vasculature is noncongested. Chronic interstitial thickening is similar to previous. The lungs and pleural spaces are clear noting bibasilar scarring/atelectasis. No pneumothorax is seen. The skeletal structures are osteopenic. The bony thorax is grossly intact. IMPRESSION: Cardiomegaly with no active disease in the chest. ACT 112: Negative or not required by law. Electronically signed by: Mark Mitchell M.D. 10/28/2021 9:[address] 10/28/21 21:39 CT SCAN OF THE BRAIN WITHOUT IV CONTRAST CLINICAL HISTORY: Fall. COMPARISON STUDY: CT of the brain dated 04/22/2020. TECHNIQUE: Unenhanced axial CT scan of the brain is performed from the vertex to the skull base. A dose lowering technique was utilized adhering to the principles of ALARA. FINDINGS: Brain parenchyma: There is age-related involutional change noting mild subcortical and periventricular microangiopathic disease. There is no hemorrhage, mass effect, or evidence of acute territorial ischemia by CT criteria. Ellis-white matter differentiation is preserved. No extra-axial fluid collection is seen. Ventricles, sulci, cisterns: Prominent secondary to involutional change. Intracranial vasculature: There is atherosclerotic calcification of the cavernous carotid arteries. Calvarium: The skeletal structures are osteopenic. No depressed calvarial fracture is seen. Sinuses and mastoids: The visualized paranasal sinuses are clear. The mastoid air cells are well pneumatized. Orbits: The bony orbits are grossly intact. There are bilateral ocular lens implants. IMPRESSION: There is no hemorrhage, mass effect, or evidence of acute territorial ischemia by CT criteria. ACT 112: Negative or not required by law. Electronically signed by: Mark Mitchell M.D. 10/28/2021 10:24 PM Pelvis X-Ray 10/28/21 21:39 SINGLE VIEW PELVIS CLINICAL HISTORY: Fall. FINDINGS: An AP, portable, supine pelvic radiograph is compared to study dated 03/22/2018. The skeletal structures are osteopenic. There is no radiographic evidence of acute fracture involving the hips or bony pelvis. Mild to moderate arthritic change and joint space narrowing is seen in the hips. There is sclerotic change in the sacroiliac joints and pubic symphysis. Lumbosacral spondylosis is partially visualized. The overlying soft tissues are within normal limits. IMPRESSION: No acute bony abnormality is identified. Electronically signed by: Mark Mitchell M.D. 10/28/2021 10:[address] 10/28/21 21:41 CT SCAN OF THE CERVICAL SPINE CLINICAL HISTORY: Fall. COMPARISON STUDY: CT of the cervical spine dated 04/22/2020. TECHNIQUE: CT scan of the cervical spine is performed from the skull base to the upper thoracic spine. Images are reviewed in the axial, sagittal, and coronal planes. IV contrast was not administered for this examination. A dose lowering technique was utilized adhering to the principles of ALARA. CT DOSE: 984.46 mGy.cm FINDINGS: Skeletal structures: The skeletal structures are osteopenic. There is no evidence of fracture or subluxation involving the cervical spine. Vertebral body height and alignment are maintained. There is straightening of the cervical lordosis. Anterior osteophytes are seen throughout. The odontoid process and lateral masses are intact. The atlantoaxial articulation is preserved noting productive degenerative change. The spinous processes appear intact. There is mild multilevel facet arthropathy. Intervertebral discs: There is moderate to severe disc space narrowing at C4-C5, C5-C6, and C6-C7. Central canal: Posterior disc osteophyte complexes at C4-C5, C5-C6, and C6-C7 may contribute to acquired compromise of the central canal. Soft tissues: The prevertebral and paraspinous soft tissues are within normal limits. Calvarium: The visualized calvarium at the skull base appears intact. Brain parenchyma: Partially visualized brain parenchyma at the skull base is within normal limits. Sinuses and mastoids: The visualized paranasal sinuses are clear. The mastoid air cells are well pneumatized. Lung apices: Clear as visualized. IMPRESSION: 1. There is no evidence of fracture or subluxation involving the cervical spine. 2. Osteopenia and spondylotic change as above. ACT 112: Negative or not required by law. Electronically signed by: Mark Mitchell M.D. 10/28/2021 10:28 PM Discharge Plan Visit Data Chief Complaint: Fall Stated Complaint: FELL, HARD TIME GETTING BACK UP ED Provider: Ronaldo Lozano Discharge Problem: Weakness, Elevated troponin I level Patient Disposition: Being Evaluated by Hospitalist Forms Stand Alone Forms: [facility] Prescriptions Prescriptions: No Action (DME) Lift Chair Misc See Rx Instructions .Route Qty: 1 0RF Rx Instructions: As directed atorvastatin 40 mg tablet 40 mg PO DAILY Qty: 90 2RF ibuprofen 600 mg tablet 600 mg PO BID PRN (Reason: pain) Qty: 60 0RF lorazepam 0.5 mg tablet 0.25 mg PO DAILY PRN (Reason: tremor and anxiety) Qty: 30 0RF mecobalamin (vitamin B12) 1,000 mcg tablet,chewable 1,000 mcg PO QAM (DME) Wheeled Walker Misc See Rx Instructions .ROUTE .MEDSUPPLY Qty: 1 0RF Rx Instructions: With brakes and a seat risedronate [Actonel] 35 mg tablet 35 mg PO WEEKLY Qty: 4 0RF Rx Instructions: SUNDAY aspirin [Adult Aspirin Regimen] 81 mg tablet,delayed release (DR/EC) 81 mg PO HS polyethylene glycol 3350 [Miralax] 17 gram Powder In Packet 17 g PO HS cholecalciferol (vitamin D3) [Vitamin D3] 5,000 unit Tablet 5,000 unit PO QAM Caltrate 600 plus D 600 mg (1,500 mg)-800 unit Tablet,Chewable 1 tab PO BID Referrals Referrals: Sasha Beck MD [Primary Care Provider] -
--- NOTE | 2021-10-28 22:31 | CT Scan Report ---
CT SCAN OF THE CERVICAL SPINE CLINICAL HISTORY: Fall. COMPARISON STUDY: CT of the cervical spine dated 04/22/2020. TECHNIQUE: CT scan of the cervical spine is performed from the skull base to the upper thoracic spine . Images are reviewed in the axial, sagittal, and coronal planes. IV contrast was not administered fo r this examination. A dose lowering technique was utilized adhering to the principles of ALARA. CT DOSE: 984.46 mGy.cm FINDINGS: Skeletal structures: The skeletal structures are osteopenic. There is no evidence of fracture or subl uxation involving the cervical spine. Vertebral body height and alignment are maintained. There is st raightening of the cervical lordosis. Anterior osteophytes are seen throughout. The odontoid process and lateral masses are intact. The atlantoaxial articulation is preserved noting productive degenerat rd change. The spinous processes appear intact. There is mild multilevel facet arthropathy. Intervertebral discs: There is moderate to severe disc space narrowing at C4-C5, C5-C6, and C6-C7. Central canal: Posterior disc osteophyte complexes at C4-C5, C5-C6, and C6-C7 may contribute to acqui red compromise of the central canal. Soft tissues: The prevertebral and paraspinous soft tissues are within normal limits. Calvarium: The visualized calvarium at the skull base appears intact. Brain parenchyma: Partially visualized brain parenchyma at the skull base is within normal limits. Sinuses and mastoids: The visualized paranasal sinuses are clear. The mastoid air cells are well pneu matized. Lung apices: Clear as visualized. IMPRESSION: 1. There is no evidence of fracture or subluxation involving the cervical spine. 2. Osteopenia and spondylotic change as above. ACT 112: Negative or not required by law. Electronically signed by: Mark Mitchell M.D. 10/28/2021 10:28 PM
[2021-10-28 22:49] LABS: Troponin I High Sensitivity 17.9 pg/ml (0-14)
[2021-10-28 22:52] LABS: Alanine Aminotransferase 18 U/L (7-52); Albumin Globulin Ratio 1.6 (0.9-2); Albumin Level 4.3 gm/dl (3.4-5.0); Alkaline Phosphatase 77 U/L (34-104); Anion Gap 9 (3-11); Aspartate Aminotransferase 22 U/L (13-39); BUN Creatinine Ratio 23.9 (10-20); Bilirubin,Total 0.7 mg/dl (0.2-1.0); Blood Urea Nitrogen 27 mg/dl (6-23); Calcium 9.3 mg/dl (8.5-10.1); Carbon Dioxide 26 mmol/L (21-32); Chloride 106 mmol/L (98-107); Est GFR (African American) 51.3 ml/min; Est GFR (Non-African American) 44.3 ml/min; Globulin 2.7 gm/dl (2.5-4.0); Glucose 106 mg/dl (70-99(Fasting)); Magnesium 2.1 mg/dl (1.7-2.4); Potassium 3.8 mmol/L (3.5-5.1); Sodium 141 mmol/L (136-145)
[2021-10-28 22:59] LABS: Appearance Urine Clear (Clear); Bacteria Urine Automated Negative (Negative); Bilirubin Urine Negative (Negative); Blood Urine Negative (Negative); Cast Urine Automated 0 /lpf (0-5); Color Urine Yellow; Epithelial Cell Urine Auto 20-30 /lpf (0-5); Glucose Urine UA Negative (Negative); Ketones Urine Negative (Negative); Leukocyte Esterase Urine Trace (Negative); Nitrite Urine Negative (Negative); Protein Urine Negative (Negative); RBC Urine Automated 0-4 /hpf (0-4); Specific Gravity Urine 1.006 (1.000-1.030); Urobilinogen Urine Negative (Negative)
[2021-10-29 00:34] LABS: Partial Thromboplastin Ratio 1.1; Partial Thromboplastin Time 29.2 Seconds (21.0-31.0); Prothrombin Time 10.8 Seconds (9.0-12.0)
--- NOTE | 2021-10-29 02:51 | History & Physical Report ---
Date of Service October 29, 2021 Assessment & Plan (1) Recurrent falls: Plan: Many falls at home (dozens at least) due to gait instability. Etiology has been worked up with our neurology department as well as with a [place] neurologist. 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 Was seen by oncology in 07/2021 with no plan for treatment as labs all generally stable. Last lumbar MRI was ~1 year ago and was mildly advanced compared to 4 years prior. - Do not see any acute interventions I can offer at this time. - Consider reaching out to neurology in AM. Do not feel that they would have much in the way of new management at this point. - PT/OT - Patient is insistent on going home from hospital and does not feel home PT/OT are of benefit any longer (reports she has a "1 inch thick folder" with home PT exercises). I discussed that I am not sure we have much to offer in the hospital, but patient and daughter would like to stay at least for tonight. (2) History of CVA (cerebrovascular accident): Plan: Brain MRI on 03/2021 showed "cerebral cortical atrophy and very prominent remote small vessel disease". - Continue home ASA & statin (3) DVT prophylaxis: Plan: Early ambulation and discharge - Can start heparin if seems like patient will have prolonged admission. DNR/DNI - Patient has living will, is clear on her desires, and daughter was in agreement. History of Present Illness Primary Care Provider: Sasha Beck MD Very pleasant 86yo F/ w hx of prior CVA, Parkinsonism, and neuropathy who presents after a fall at home. The patient has had many falls at home. 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 She usually records 4-9 falls per month. September was a great month, and she had one fall, but in October, she has fallen 6 times so far. She denies any prodrome to the falls. No lightheadedness, no dizziness, no chest pain or palpitations. She just feels a sensation of weakness and her legs give out. Much of the time, she can feel herself going down and grabs something nearby or falls into a wall and kind of slides down. She uses a wheeled walker 100% of the time, but falls nonetheless. She struck her head as she fell backwards on Oct.06, but otherwise has not struck her head on any falls. She denies ever losing consciousness during a fall or after she fell down. Today she had a fall sideways onto her left side against the wall. She reports it was a typical fall in that she was up, and felt her legs get weaker and then fell/slid into the wall on her left. This time, she was not able to scoot to something stable though because she felt her lower thighs were weak as well. This is what brought her to the hospital this time. Allergies Allergy/AdvReac Type Severity Reaction Status Date / Time adhesive Allergy Rash Verified 10/29/21 02:45 [facility] AdvReac Intermediate worse Verified 10/29/21 02:45 tremor codeine AdvReac Mild Vomiting Verified 10/29/21 02:45 Home Medications Medication Instructions Recorded Confirmed Type calcium carbonate 600 mg-vitamin 1 tab PO BID 10/12/17 10/04/21 History D3 20 mcg (800 unit) chewable tablet (Caltrate 600 plus D) cholecalciferol (vitamin D3) 125 5,000 unit PO QAM 10/12/17 10/04/21 History mcg (5,000 unit) tablet (Vitamin D3) polyethylene glycol 3350 17 gram 17 g PO HS 10/12/17 10/04/21 History oral powder packet (Miralax) risedronate 35 mg tablet (Actonel) 35 mg PO WEEKLY #4 tabs 08/01/18 10/04/21 Rx mecobalamin (vitamin B12) 1,000 1,000 mcg PO QAM 04/07/19 10/04/21 History mcg chewable tablet aspirin 81 mg tablet,delayed 81 mg PO HS 10/14/19 10/04/21 History release (Adult Aspirin Regimen) atorvastatin 40 mg tablet 40 mg PO DAILY #90 tabs 05/18/21 10/04/21 Rx ibuprofen 600 mg tablet 600 mg PO BID PRN pain #60 tabs 08/11/21 10/04/21 Rx lorazepam 0.5 mg tablet 0.25 mg PO DAILY PRN tremor and 10/21/21 Rx anxiety #30 tabs Past Med/Surg History Medical History Anxiety Basal cell carcinoma (BCC) of dorsum of nose WITH EXCISION Chronic back pain Degenerative disc disease Falls frequently FREQUENT Fracture of sacrum HEALED Hearing deficit History of CVA (cerebrovascular accident) Hx of fracture LUMBAR AREA> HEALED Hyperlipidemia Hypothyroidism Idiopathic peripheral neuropathy Lower extremity numbness Maxillary fracture HAIRLINE 09/14/2017 AFTER FALL Osteoporosis Parkinsonism Scoliosis Spinal stenosis Tinnitus resolved Surgical History H/O hysterectomy with unilateral oophorectomy 1979 R H/O left cataract extraction H/O Moh's micrographic surgery for skin cancer 2019 H/O oophorectomy 1969 L H/O right cataract extraction History of appendectomy 1969 History of breast biopsy 2017 R BENIGN History of colonoscopy History of tonsillectomy and adenoidectomy 1942 S/P trigger finger release L HAND S/P wrist surgery L PLATE Family History Son Family history of diabetes mellitus Daughter Family history of diabetes mellitus Mother Cervical cancer Father Myocardial infarction Brother Myocardial infarction Denies family history of Ovarian cancer Prostate cancer Breast cancer Colorectal cancer Social History Smoking Status: Never smoker Second Hand Exposure: No; Hx Alcohol Use: No Hx Substance Use: No Preferred Language: Marshallese Communication Ability: Effective Visual Impairment: No Limitations Hearing Ability: Use of Hearing Aid 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 caffeine: No during the past year weight has: remained stable Dental Care, Regularly: Yes Physical Activity Frequency: Daily Seatbelt Use: always Sunscreen Use: No Assistive Devices: Cane, Glasses, Hearing Aid - Bilateral and Walker Review of Systems Review of Systems: All systems reviewed & are unremarkable except as noted in HPI & below Physical Exam Constitutional: WD/WN, vitals as above Eyes: EOM intact bilaterally; no conjunctival abnormality ENMT: external ear and nose normal, oropharynx normal Neck: trachea midline, no thyromegaly normal visual inspection Respiratory: normal respiratory effort, lungs clear to auscultation no respiratory distress Cardiovascular: RRR, no murmur, no edema Gastrointestinal (Abdomen): Inspection/Auscultation: abdomen normal to inspection; abdomen not distended Musculoskeletal: no cyanosis or clubbing, extremities motor strength 5/5 Skin: no rashes, warm and dry Neurologic: moves all extremities and awake Good strength. Light touch and proprioception normal on exam of LEs. Psychiatric: Orientation: alert, oriented to person and cooperative Results & Data Results & [facility] ([facility]) Vital Signs (Past 12 Hours) Vital Signs Temp Pulse Pulse Resp BP BP Pulse Ox 10/29/21 02:26 106 H 20 161/94 H 96 10/29/21 00:56 110 H 18 136/87 96 10/28/21 21:06 37.3 C 103 H 20 158/90 H 93 O2 Del Method 10/29/21 02:26 Room Air 10/29/21 00:56 Room Air 10/28/21 21:06 Room Air Code Status & VTE Plan VTE Prophylaxis Plan VTE Prophylaxis will be ordered: Yes PG Care Time/CCT Total # of Minutes Spent Total Time Spent with Patient: Total time spent is greater than 50% in coordination of care (as documented) at patient's floor/unit and/or counseling patient: Coding Level of Care Code INT OBSERVATION CARE 70M LVL 3 Diagnoses Recurrent falls R29.6 History of CVA (cerebrovascular accident) Z86.73 DVT prophylaxis Z29.9
[2021-10-29 03:36] LABS: Folate (Folic Acid) 14.74 ng/ml (>5.38)
[2021-10-29] MEDS ORDERED: ONDANSETRON INJ 2 MG/ML 2 ML VIAL IV PRN (04:26)
[2021-10-29 07:19] LABS: Hematocrit (blood only) 39.2 % (34.1-44.9); Hemoglobin 13.7 g/dl (12.0-16.0); Mean Corpuscular Hemoglobin 30.7 pg (25.0-34.0); Mean Corpuscular Hgb Conc 34.9 g/dL (32.0-36.0); Mean Corpuscular Volume 87.9 fL (80.0-100.0); Mean Platelet Volume 9.4 fL (9.4-12.3); Platelet Count 261 K/uL (130-400); RDW Coefficient of Variation 11.7 % (11.5-14.5); RDW Standard Deviation 37.5 fL (36.4-46.3); Red Blood Count 4.46 M/uL (3.93-5.22); White Blood Count 8.86 K/ul (4.8-10.8)
[2021-10-29 08:24] LABS: BUN Creatinine Ratio 24.4 (10-20); Calcium 8.8 mg/dl (8.5-10.1); Creatinine Clr Calc Pharmacy 46.1 ml/min; Est GFR (African American) 75.6 ml/min; Est GFR (Non-African American) 65.3 ml/min; Magnesium 2.1 mg/dl (1.7-2.4); Potassium 3.6 mmol/L (3.5-5.1)
[2021-10-29] MEDS: ATORVASTATIN 40 MG TAB PO SCH (09:30)
--- NOTE | 2021-10-29 15:03 | Hospitalist Progress Note ---
Date of Service October 29, 2021 Assessment & Plan (1) Recurrent falls: Plan: Many falls at home (dozens at least) due to gait instability. Etiology has been worked up with our neurology department as well as with a [place] neurologist. 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 Was seen by oncology in 07/2021 with no plan for treatment as labs all generally stable. - Last lumbar MRI was ~1 year ago and was mildly advanced compared to 4 years prior. - CT head, CT C spine wnl - PT/OT - Patient is insistent on going home from hospital and does not feel home PT/OT are of benefit any longer (reports she has a "1 inch thick folder" with home PT exercises). -I discussed that I am not sure we have much to offer in the hospital, but patient and daughter would like to stay at least for tonight. -Patient and daughter now open to SNF given unsafe home discharge due to recurrent falls (2) History of CVA (cerebrovascular accident): Plan: Brain MRI on 03/2021 showed "cerebral cortical atrophy and very prominent remote small vessel disease". - Continue home ASA & statin (3) DVT prophylaxis: Plan: Early ambulation and discharge - Can start heparin if seems like patient will have prolonged admission. DNR/DNI - Patient has living will, is clear on her desires, and daughter was in agreement. Admission and Anticipated Discharge Date Admission Date: October 29, 2021 Subjective patient seen and examined in the presence of the daughter, participating in PT Review of Systems Review of Systems: All systems reviewed are negative, apart from the ones contained in the history. Physical Exam Physical Exam: The patient is awake, alert and oriented 3, well developed and well nourished, normocephalic and atraumatic, lying in bed and in no acute distress. HEENT--PERRL, EOMI, mucous membranes and oropharynx mildly dry Neck--supple. No JVD. No bruits. Thyroid normal, trachea midline, no adenopathy. Heart--normal S1 and S2. No murmurs, rubs or gallops. Lungs--clear bilaterally, no respiratory distress, no accessory muscle use. Abdomen--normal bowel sounds and soft. Mild epigastric and left sided abdominal pain Extremities--no cyanosis or clubbing. No edema. Dermatologic--normal skin turgor, normal color, no abnormal lymph nodes, no rash. Neurologic--cranial nerves II through XII grossly intact. Rheumatologic--normal range of motion. Psychiatric--normal affect. Results & Data Results & Data ([facility]) Vital Signs (Past 12 Hours) Vital Signs Temp Pulse Pulse Resp BP Pulse Ox O2 Del Method 10/29/21 09:00 98.1 F 102 H 18 130/75 97 Room Air 10/29/21 04:02 97.9 F 108 H 17 161/93 H 98 Room Air 10/29/21 03:30 108 H 18 121/67 95 Room Air PG Care Time/CCT Total # of Minutes Spent Total Time Spent with Patient: Total time spent is greater than 50% in coordination of care (as documented) at patient's floor/unit and/or counseling patient: Coding Level of Care Code 73882 Subseq Hosp Care Lvl 2 Diagnoses Recurrent falls R29.6 History of CVA (cerebrovascular accident) Z86.73 DVT prophylaxis Z29.9 Time Spent (min) 35
[2021-10-29] MEDS: LORazepam 0.5 MG TAB PO PRN (22:03)
[2021-10-29] MEDS: ASPIRIN 81 MG ECTAB PO SCH (22:04)
[2021-10-29] MEDS: POLYETHYLENE (MIRALAX) 17 GM PACK PO SCH (22:04)
--- NOTE | 2021-10-29 22:33 | Electrocardiogram Report ---
Test Reason : Blood Pressure : / mmHG Vent. Rate : 105 BPM Atrial Rate : 105 BPM P-R Int : 158 ms QRS Dur : 080 ms QT Int : 344 ms P-R-T Axes : 041 -16 005 degrees QTc Int : 454 ms Sinus tachycardia Minimal voltage criteria for LVH, may be normal variant Anterior infarct , age undetermined Abnormal ECG When compared with ECG of 14-SEP-2017 20:08, Anterior infarct is now Present Confirmed by Brian Rosenbaum ([id number]) on 10/29/2021 10:32:47 PM Referred By: REFERRED SELF Confirmed By:Brian Rosenbaum
[2021-10-30] MEDS: ATORVASTATIN 40 MG TAB PO SCH (08:42)
[2021-10-30] MEDS: ACETAMINOPHEN 325 MG TAB PO PRN (12:43)
--- NOTE | 2021-10-30 14:38 | Hospitalist Progress Note ---
Date of Service October 30, 2021 Assessment & Plan (1) Recurrent falls: Plan: Many falls at home (dozens at least) due to gait instability. Etiology has been worked up with our neurology department as well as with a [place] neurologist. 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 Was seen by oncology in 07/2021 with no plan for treatment as labs all generally stable. - Last lumbar MRI was ~1 year ago and was mildly advanced compared to 4 years prior. - CT head, CT C spine wnl - PT/OT - Patient is insistent on going home from hospital and does not feel home PT/OT are of benefit any longer (reports she has a "1 inch thick folder" with home PT exercises). -I discussed that I am not sure we have much to offer in the hospital, but patient and daughter would like to stay at least for tonight. -Patient and daughter now open to SNF given unsafe home discharge due to recurrent falls -She is participating well in PT (2) History of CVA (cerebrovascular accident): Plan: Brain MRI on 03/2021 showed "cerebral cortical atrophy and very prominent remote small vessel disease". - Continue home ASA & statin (3) DVT prophylaxis: Plan: Early ambulation and discharge - Can start heparin if seems like patient will have prolonged admission. DNR/DNI - Patient has living will, is clear on her desires, and daughter was in agreement. Plan SNF placement when accepted Admission and Anticipated Discharge Date Admission Date: October 29, 2021 Subjective patient seen and examined ,no new complaints, participating in PT Review of Systems Review of Systems: All systems reviewed are negative, apart from the ones contained in the history. Physical Exam Physical Exam: The patient is awake, alert and oriented 3, well developed and well nourished, normocephalic and atraumatic, lying in bed and in no acute distress. HEENT--PERRL, EOMI, mucous membranes and oropharynx mildly dry Neck--supple. No JVD. No bruits. Thyroid normal, trachea midline, no adenopathy. Heart--normal S1 and S2. No murmurs, rubs or gallops. Lungs--clear bilaterally, no respiratory distress, no accessory muscle use. Abdomen--normal bowel sounds and soft. Mild epigastric and left sided abdominal pain Extremities--no cyanosis or clubbing. No edema. Dermatologic--normal skin turgor, normal color, no abnormal lymph nodes, no rash. Neurologic--cranial nerves II through XII grossly intact. Rheumatologic--normal range of motion. Psychiatric--normal affect. Results & Data Results & Data ([facility]) Vital Signs (Past 12 Hours) Vital Signs Temp Pulse Resp BP Pulse Ox O2 Del Method 10/30/21 07:30 97.7 F 89 20 129/79 93 Room Air PG Care Time/CCT Total # of Minutes Spent Total Time Spent with Patient: Total time spent is greater than 50% in coordination of care (as documented) at patient's floor/unit and/or counseling patient: Coding Level of Care Code 04629 Subseq Hosp Care Lvl 2 Diagnoses Recurrent falls R29.6 History of CVA (cerebrovascular accident) Z86.73 DVT prophylaxis Z29.9 Time Spent (min) 35
[2021-10-30] MEDS: POLYETHYLENE (MIRALAX) 17 GM PACK PO SCH (21:01)
[2021-10-30] MEDS: ASPIRIN 81 MG ECTAB PO SCH (21:02)
[2021-10-30] MEDS: LORazepam 0.5 MG TAB PO PRN (21:56)
[2021-10-31] MEDS: ATORVASTATIN 40 MG TAB PO SCH (08:39)
[2021-10-31] MEDS: ACETAMINOPHEN 325 MG TAB PO PRN (13:00)
--- NOTE | 2021-10-31 16:51 | Hospitalist Progress Note ---
Date of Service October 31, 2021 Assessment & Plan (1) Recurrent falls: Plan: Many falls at home (dozens at least) due to gait instability. Etiology has been worked up with our neurology department as well as with a [place] neurologist. 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 Was seen by oncology in 07/2021 with no plan for treatment as labs all generally stable. - Last lumbar MRI was ~1 year ago and was mildly advanced compared to 4 years prior. - CT head, CT C spine wnl - PT/OT - Patient is insistent on going home from hospital and does not feel home PT/OT are of benefit any longer (reports she has a "1 inch thick folder" with home PT exercises). -I discussed that I am not sure we have much to offer in the hospital, but patient and daughter would like to stay at least for tonight. -Patient and daughter now open to SNF given unsafe home discharge due to recurrent falls -She is participating well in PT (2) History of CVA (cerebrovascular accident): Plan: Brain MRI on 03/2021 showed "cerebral cortical atrophy and very prominent remote small vessel disease". - Continue home ASA & statin (3) DVT prophylaxis: Plan: Early ambulation and discharge - Can start heparin if seems like patient will have prolonged admission. DNR/DNI - Patient has living will, is clear on her desires, and daughter was in agreement. Plan SNF placement when accepted Admission and Anticipated Discharge Date Admission Date: October 29, 2021 Subjective patient seen and examined ,no new complaints, participating in PT, son by the bedside Review of Systems Review of Systems: All systems reviewed are negative, apart from the ones contained in the history. Physical Exam Physical Exam: The patient is awake, alert and oriented 3, well developed and well nourished, normocephalic and atraumatic, lying in bed and in no acute distress. HEENT--PERRL, EOMI, mucous membranes and oropharynx mildly dry Neck--supple. No JVD. No bruits. Thyroid normal, trachea midline, no adenopathy. Heart--normal S1 and S2. No murmurs, rubs or gallops. Lungs--clear bilaterally, no respiratory distress, no accessory muscle use. Abdomen--normal bowel sounds and soft. Mild epigastric and left sided abdominal pain Extremities--no cyanosis or clubbing. No edema. Dermatologic--normal skin turgor, normal color, no abnormal lymph nodes, no rash. Neurologic--cranial nerves II through XII grossly intact. Rheumatologic--normal range of motion. Psychiatric--normal affect. Results & Data Results & Data ([facility]) Vital Signs (Past 12 Hours) Vital Signs Temp Pulse Resp BP Pulse Ox O2 Del Method 10/31/21 15:03 97.8 F 94 H 16 99/62 L 95 Room Air 10/31/21 06:59 97.7 F 81 16 115/74 96 Room Air PG Care Time/CCT Total # of Minutes Spent Total Time Spent with Patient: Total time spent is greater than 50% in coordination of care (as documented) at patient's floor/unit and/or counseling patient: Coding Level of Care Code 34359 Subseq Hosp Care Lvl 2 Diagnoses Recurrent falls R29.6 History of CVA (cerebrovascular accident) Z86.73 DVT prophylaxis Z29.9 Time Spent (min) 35
[2021-10-31] MEDS: LORazepam 0.5 MG TAB PO PRN (21:48)
[2021-10-31] MEDS: POLYETHYLENE (MIRALAX) 17 GM PACK PO SCH (21:48)
[2021-10-31] MEDS: ASPIRIN 81 MG ECTAB PO SCH (21:50)
[2021-11-01] MEDS: ATORVASTATIN 40 MG TAB PO SCH (08:29)
--- NOTE | 2021-11-01 14:54 | Hospitalist Progress Note ---
Date of Service November 01, 2021 Assessment & Plan (1) Recurrent falls: Plan: Many falls at home (dozens at least) due to gait instability. Etiology has been worked up with our neurology department as well as with a [place] neurologist. 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 Was seen by oncology in 07/2021 with no plan for treatment as labs all generally stable. - Last lumbar MRI was ~1 year ago and was mildly advanced compared to 4 years prior. - CT head, CT C spine wnl - PT/OT - Patient is insistent on going home from hospital and does not feel home PT/OT are of benefit any longer (reports she has a "1 inch thick folder" with home PT exercises). -I discussed that I am not sure we have much to offer in the hospital, but patient and daughter would like to stay at least for tonight. -Patient and daughter now open to SNF given unsafe home discharge due to recurrent falls -She is participating well in PT -Hopefully d/c to SNF tomorrow (2) History of CVA (cerebrovascular accident): Plan: Brain MRI on 03/2021 showed "cerebral cortical atrophy and very prominent remote small vessel disease". - Continue home ASA & statin (3) DVT prophylaxis: Plan: Early ambulation and discharge - Can start heparin if seems like patient will have prolonged admission. DNR/DNI - Patient has living will, is clear on her desires, and daughter was in agreement. Plan SNF placement when accepted, posibly tomorrow Admission and Anticipated Discharge Date Admission Date: November 01, 2021 Subjective patient seen and examined ,no new complaints, participating in PT, hopefully d/c to rehab tomorrow Review of Systems Review of Systems: All systems reviewed are negative, apart from the ones contained in the history. Physical Exam Physical Exam: The patient is awake, alert and oriented 3, well developed and well nourished, normocephalic and atraumatic, lying in bed and in no acute distress. HEENT--PERRL, EOMI, mucous membranes and oropharynx mildly dry Neck--supple. No JVD. No bruits. Thyroid normal, trachea midline, no adenopathy. Heart--normal S1 and S2. No murmurs, rubs or gallops. Lungs--clear bilaterally, no respiratory distress, no accessory muscle use. Abdomen--normal bowel sounds and soft. Mild epigastric and left sided abdominal pain Extremities--no cyanosis or clubbing. No edema. Dermatologic--normal skin turgor, normal color, no abnormal lymph nodes, no rash. Neurologic--cranial nerves II through XII grossly intact. Rheumatologic--normal range of motion. Psychiatric--normal affect. Results & Data Results & Data ([facility]) Vital Signs (Past 12 Hours) Vital Signs Temp Pulse Resp BP Pulse Ox O2 Del Method 11/01/21 07:51 97.5 F L 82 16 113/69 96 Room Air PG Care Time/CCT Total # of Minutes Spent Total Time Spent with Patient: Total time spent is greater than 50% in coordination of care (as documented) at patient's floor/unit and/or counseling patient: Coding Level of Care Code 18173 Subseq Hosp Care Lvl 2 Diagnoses Recurrent falls R29.6 History of CVA (cerebrovascular accident) Z86.73 DVT prophylaxis Z29.9 Time Spent (min) 35
[2021-11-01] MEDS: POLYETHYLENE (MIRALAX) 17 GM PACK PO SCH (20:09)
[2021-11-01] MEDS: ASPIRIN 81 MG ECTAB PO SCH (20:09)
[2021-11-01] MEDS: LORazepam 0.5 MG TAB PO PRN (21:41)
[2021-11-02] MEDS: ATORVASTATIN 40 MG TAB PO SCH (08:20)
--- NOTE | 2021-11-02 13:40 | Discharge Summary ---
Date of Service November 02, 2021 Admission HPI Per Admitting Provider Very pleasant 86yo F/ w hx of prior CVA, Parkinsonism, and neuropathy who presents after a fall at home. The patient has had many falls at home. 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 She usually records 4-9 falls per month. September was a great month, and she had one fall, but in October, she has fallen 6 times so far. She denies any prodrome to the falls. No lightheadedness, no dizziness, no chest pain or palpitations. She just feels a sensation of weakness and her legs give out. Much of the time, she can feel herself going down and grabs something nearby or falls into a wall and kind of slides down. She uses a wheeled walker 100% of the time, but falls nonetheless. She struck her head as she fell backwards on Oct.06, but otherwise has not struck her head on any falls. She denies ever losing consciousness during a fall or after she fell down. Today she had a fall sideways onto her left side against the wall. She reports it was a typical fall in that she was up, and felt her legs get weaker and then fell/slid into the wall on her left. This time, she was not able to scoot to something stable though because she felt her lower thighs were weak as well. This is what brought her to the hospital this time. Principal Diagnosis Frequent falls Discharge Exam The patient is awake, alert and oriented 3, well developed and well nourished, normocephalic and atraumatic, lying in bed and in no acute distress. HEENT--PERRL, EOMI, mucous membranes and oropharynx mildly dry Neck--supple. No JVD. No bruits. Thyroid normal, trachea midline, no adenopathy. Heart--normal S1 and S2. No murmurs, rubs or gallops. Lungs--clear bilaterally, no respiratory distress, no accessory muscle use. Abdomen--normal bowel sounds and soft. Mild epigastric and left sided abdominal pain Extremities--no cyanosis or clubbing. No edema. Dermatologic--normal skin turgor, normal color, no abnormal lymph nodes, no rash. Neurologic--cranial nerves II through XII grossly intact. Rheumatologic--normal range of motion. Psychiatric--normal affect. Discharge Data Allergies Allergy/AdvReac Type Severity Reaction Status Date / Time adhesive Allergy Rash Verified 10/29/21 02:45 [facility] AdvReac Intermediate worse Verified 10/29/21 02:45 tremor codeine AdvReac Mild Vomiting Verified 10/29/21 02:45 Consultations 10/29/21 01:27 ED Decision to Admit Stat Ordered Studies 10/28/21 21:39 CT head/brain wo con Stat 10/28/21 21:41 CT cervical spine wo con Stat Hospital Course (1) Recurrent falls: Many falls at home (dozens at least) due to gait instability. Etiology has been worked up with our neurology department as well as with a [facility] neurologist. 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 Was seen by oncology in 07/2021 with no plan for treatment as labs all generally stable. - Last lumbar MRI was ~1 year ago and was mildly advanced compared to 4 years prior. - CT head, CT C spine wnl - PT/OT - Patient is insistent on going home from hospital and does not feel home PT/OT are of benefit any longer (reports she has a "1 inch thick folder" with home PT exercises). -I discussed that I am not sure we have much to offer in the hospital, but patient and daughter would like to stay at least for tonight. -Patient and daughter now open to SNF given unsafe home discharge due to recurrent falls -She is participating well in PT -Hopefully d/c to today (2) History of CVA (cerebrovascular accident): Brain MRI on 03/2021 showed "cerebral cortical atrophy and very prominent remote small vessel disease". - Continue home ASA & statin (3) DVT prophylaxis: Early ambulation and discharge - Can start heparin if seems like patient will have prolonged admission. DNR/DNI - Patient has living will, is clear on her desires, and daughter was in agreement. Plan SNF placement when accepted Total Time Total Time Spent Total Time Spent (In Minutes): 35 Discharge Plan Discharge Items Patient Disposition: Transfer Long Term Fac Reason For Visit: FALLS AT HOME Discharge Diagnosis: frequent falls Activity: Resume your previous activity Non-emergency contact: Primary Care Provider Call non-emergency contact if: you have any medication questions Follow-up/Referrals: Sasha Beck MD [Primary Care Provider] - Diet: Regular Addtl Attending Provider Instructions: please follow up with your regular PCP Pending Studies at Discharge: No Stand-Alone Forms: My [facility] Skilled Items Patient informed of condition?: Yes DNR: Yes Discharge Level of Care: Skilled Communicable Disease: No Discharge Prognosis: Stable Lines: None Urinary Catheter: No Medications and DC Order Prescriptions: Continued atorvastatin 40 mg tablet 40 mg PO DAILY Qty: 90 2RF ibuprofen 600 mg tablet 600 mg PO BID PRN (Reason: pain) Qty: 60 0RF lorazepam 0.5 mg tablet 0.25 mg PO DAILY PRN (Reason: tremor and anxiety) Qty: 30 0RF mecobalamin (vitamin B12) 1,000 mcg tablet,chewable 1,000 mcg PO QAM risedronate [Actonel] 35 mg tablet 35 mg PO WEEKLY Qty: 4 0RF Rx Instructions: SUNDAY aspirin [Adult Aspirin Regimen] 81 mg tablet,delayed release (DR/EC) 81 mg PO HS polyethylene glycol 3350 [Miralax] 17 gram Powder In Packet 17 g PO HS cholecalciferol (vitamin D3) [Vitamin D3] 5,000 unit Tablet 5,000 unit PO QAM Caltrate 600 plus D 600 mg (1,500 mg)-800 unit Tablet,Chewable 1 tab PO BID Discharge Orders: Discharge Order (Routine); Ordered 11/02/21 Ordered By: Rico Trevino/Other Patient Handouts: Falls Prevent Adjust Living Space, Exercises to Prevent Falls Admission Data Admit Date/Time: 11/01/21 11:07 Attending Provider: Rico Davis Admit Provider: Laron Dunn Primary Care Provider: Sasha Beck Other Providers: Laron Dunn ; [facility] ; [facility] Other Interventions: Discharge Summary Assessment (RN) Last Done: 11/02/21 09:32 Coding Level of Care Code D/C DAY MANAGEMENT >30 MINS Diagnoses Recurrent falls R29.6 History of CVA (cerebrovascular accident) Z86.73 DVT prophylaxis Z29.9 Time Spent (min) 35
== END 2021-11-02 10:16 ==
LOC: ED 20:55 → 3W 20:55 → SUATTDRO 10-29 02:28 → 3W 10-29 03:31

== ENCOUNTER 2022-01-26 09:08 | Inpatient (IN) ==
--- NOTE | 2022-01-26 09:11 | Emergency Department Note ---
Impression & Plan Sepsis, Elevated troponin, Weakness, Influenza A, Hypocalcemia ED Provider Note NAME: RABIA HANDY AGE: 86 SEX: F : 1935 ARRIVES VIA: Ambulance INFORMANT: Patient, ED PROVIDER(S): Wagner Oquendo MD Chief Complaint: Weakness fever HPI: Patient presents due to concern for weakness and fever. The patient had been seen on Sunday for a fall where the patient did have imaging completed of her right upper extremity. The patient presents today as the patient was unable to get up and out of bed. The patient did have fever at home. Temperature 38 4 upon presentation. The patient did not take anything for her fever or pain at home. The patient does complain of allover body pain. No fall since Sunday. Patient did have a knee stay over the last evening. Patient denies any chest pains or shortness of breath with the patient has had cough that feels loose but it is nonproductive. The patient states she did receive a seasonal flu shot and is vaccinated for COVID-19. The patient denies any known sick contacts or recent travel. Patient states that her appetite has been decreased and the patient is not drinking as much fluids. Patient denies any abdominal pain. She has mild nausea but no vomiting. No diarrhea. The patient denies any head or neck pain. No numbness tingling or focal weakness. No additional exacerbating or remitting factors MDM: Patient was seen due to concern for weakness. The patient was tachycardic with a fever. Sepsis orders were initiated. The patient was ordered IV cefepime MRSA swab viral combo swab IV fluids lactate Pro-Girish and blood cultures. The patient has a normal white count H&H and platelet count. Kidney function with prerenal azotemia. The patient did receive IV fluids. Additional 600 ordered to meet for sepsis. Patient with mild hypocalcemia which is ordered for replacement. Lactate is normal. Troponin is elevated 168. No chest pains or shortness of breath. Do believe this likely demand related as the patient has no obvious ischemic change on EKG. Flu positive. Tamiflu ordered. Given the patient's weakness sepsis criteria of flu and borderline hypoxemia I did speak with the on-call hospitalist Dr. Romo. Patient's heart rate did improve after IV fluids ROS: See HPI for pertinent positives and negatives. A total of 10 systems were reviewed and otherwise negative. Past medical history: See below Surgical history: See below Social history: See below Physical Exam: GENERAL: NAD, wearing a mask, non-toxic. Wearing glasses EYE EXAM: Normal conjunctiva. PERRL, no anisocoria and EOM's grossly intact w/o pain. NECK: Supple, no nuchal rigidity, no adenopathy, non-tender. No signs of meningismus. FROM of the neck with good chin to chest and neck extension. No stridor. LUNGS: Clear to auscultation. Normal chest wall mechanics. HEART: Tachycardic and regular, no MRG. ABDOMEN: Abdomen soft, non-tender, normo-active bowel sounds, no masses, no rebound or guarding. BACK: No CVA TTP. SKIN: No rashes, bruising as noted below UPPER EXTREMITIES: Bruising noted to the right anterior shoulder, neurovascular intact distally. LOWER EXTREMITIES: Grossly normal, no edema. NEURO EXAM: A&O x3, cranial nerves II-XII grossly intact, normal speech, moves all 4 extremities. Differential diagnoses: Sepsis, UTI, pneumonia, metabolic, electrolyte abnormalities, cardiac sources, intracerebral event, toxicologic, neurologic, as well as other pathologies. Course: Patient was seen and evaluated the bedside. Full history physical exam was performed. EKG interpreted by me Sinus tachycardia, rate of 111, normal CT and QRS, normal axis, PVCs noted no obvious ST elevations. Imaging Studies: See Below Cardiac monitoring: An order was placed for continuous cardiac monitoring. The monitor shows a rate of 116 with tachycardic and rate rhythm. Past Med/Surg History Medical History Anxiety Basal cell carcinoma (BCC) of dorsum of nose WITH EXCISION Chronic back pain Degenerative disc disease Falls frequently FREQUENT Fracture of sacrum HEALED Hearing deficit History of CVA (cerebrovascular accident) Hx of fracture LUMBAR AREA> HEALED Hyperlipidemia Hypothyroidism Idiopathic peripheral neuropathy Lower extremity numbness Maxillary fracture HAIRLINE 09/14/2017 AFTER FALL Osteoporosis Parkinsonism Scoliosis Spinal stenosis Tinnitus resolved Surgical History H/O hysterectomy with unilateral oophorectomy 1979 R H/O left cataract extraction H/O Moh's micrographic surgery for skin cancer 2019 H/O oophorectomy 1969 L H/O right cataract extraction History of appendectomy 1969 History of breast biopsy 2017 R BENIGN History of colonoscopy History of tonsillectomy and adenoidectomy 1943 S/P trigger finger release L HAND S/P wrist surgery L PLATE Family History Son Family history of diabetes mellitus Daughter Family history of diabetes mellitus Mother Cervical cancer Father Myocardial infarction Brother Myocardial infarction Denies family history of Ovarian cancer Prostate cancer Breast cancer Colorectal cancer Social History Smoking Status: Never smoker Second Hand Exposure: No; Hx Alcohol Use: No Hx Substance Use: No Preferred Language: British Communication Ability: Effective Visual Impairment: No Limitations Hearing Ability: Use of Hearing Aid [employer] Specialist Required: No Beliefs That Will Affect Care: None marital status: / Current Living Situation: Alone current occupational status: retired How many Children do You have: 2 Feels Safe at Home: Yes Childhood Exposure to Second-Hand Smoke: Yes Diet Comment: med. caffeine: No during the past year weight has: remained stable Dental Care, Regularly: Yes Physical Activity Frequency: Daily Seatbelt Use: always Sunscreen Use: No Assistive Devices: Walker Allergies Allergies Allergy/AdvReac Type Severity Reaction Status Date / Time adhesive Allergy Rash Verified 01/26/22 12:20 [facility]am [facility]] AdvReac Intermediate worse Verified 01/26/22 12:20 tremor codeine AdvReac Mild Vomiting Verified 01/26/22 12:20 Home Meds Home Medications Medication Instructions Recorded Confirmed cholecalciferol (vitamin D3) 125 5,000 unit PO QAM 10/12/17 01/26/22 mcg (5,000 unit) tablet (Vitamin D3) polyethylene glycol 3350 17 gram 17 g PO HS 10/12/17 01/26/22 oral powder packet (Miralax) mecobalamin (vitamin B12) 1,000 1,000 mcg PO QAM 04/07/19 01/26/22 mcg chewable tablet aspirin 81 mg tablet,delayed 81 mg PO HS 10/14/19 01/26/22 release (Adult Aspirin Regimen) melatonin 5 mg tablet 5 mg PO HS PRN sleep 11/21/21 01/26/22 acetaminophen 650 mg 650 mg PO Q8H PRN Pain 01/26/22 01/26/22 tablet,extended release (Tylenol Arthritis Pain) calcium carbonate 600 mg-vitamin 1 tab PO BID 01/26/22 01/26/22 D3 20 mcg (800 unit) tablet (Caltrate with Vitamin D3) Previous Rx's Medication Instructions Recorded risedronate 35 mg tablet (Actonel) 35 mg PO WEEKLY #4 tabs 08/01/18 atorvastatin 40 mg tablet 40 mg PO DAILY #90 tabs 05/18/21 benztropine 1 mg tablet 1 mg PO BID PRN drooling #30 tabs 01/20/22 Results & Data (ED) Vital Signs Vital Signs - 24 hr 01/26/22 09:19 01/26/22 09:19 01/26/22 09:29 Temperature 38.4 C H Temperature Source Oral Pulse Rate 117 H Pulse Rate [Finger] 117 H 117 H Respiratory Rate 16 18 18 Blood Pressure 153/98 H Blood Pressure [Left Arm] 153/98 H 153/98 H Blood Pressure Mean 116 Blood Pressure Mean [Left Arm] 116 116 Pulse Oximetry 93 93 96 Oxygen Delivery Method Oxygen Flow Rate Sepsis Recent Fever Within 48 Hours No Sepsis New/Unexplained Change in Mental Status N/A Sepsis Action Taken by Nursing Physician Notified 01/26/22 11:18 01/26/22 12:22 Temperature Temperature Source Pulse Rate Pulse Rate [Finger] 114 H 96 H Respiratory Rate 20 16 Blood Pressure Blood Pressure [Left Arm] 107/68 138/79 Blood Pressure Mean Blood Pressure Mean [Left Arm] 81 98 Pulse Oximetry 96 96 Oxygen Delivery Method Nasal Cannula Nasal Cannula Oxygen Flow Rate 2 2 Sepsis Recent Fever Within 48 Hours Sepsis New/Unexplained Change in Mental Status Sepsis Action Taken by Group Home Medications Current Medication List: was personally reviewed by me Laboratory Data Attestation: I reviewed the patient's lab results. Result diagrams: 01/26/22 09:24 01/26/22 09:24 Lab Results 01/26/22 01/26/22 01/26/22 Range/Units 09:11 09:24 09:24 WBC 10.65 (4.8-10.8) K/ul RBC 4.32 (3.93-5.22) M/uL Hgb 13.2 (12.0-16.0) g/dl Hct 38.4 (34.1-44.9) % MCV 88.9 (80.0-100.0) fL MCH 30.6 (25.0-34.0) pg MCHC 34.4 (32.0-36.0) g/dL RDW Std Deviation 38.8 (36.4-46.3) fL RDW Coeff of Aashish 11.9 (11.5-14.5) % Plt Count 202 (130-400) K/uL MPV 9.3 L (9.4-12.3) fL Immature Gran % (Auto) 0.4 % Neut % (Auto) 85.5 % Lymph % (Auto) 8.5 % Reeves % (Auto) 5.3 % Eos % (Auto) 0.1 % Baso % (Auto) 0.2 % Neut # (Auto) 9.11 H (1.4-6.5) K/uL Lymph # (Auto) 0.91 L (1.2-3.4) K/uL Reeves # (Auto) 0.56 (0.24-0.82) K/uL Eos # (Auto) 0.01 (0-0.50) K/uL Baso # (Auto) 0.02 (0-0.2) K/uL Immature Gran # (Auto) 0.04 H (0.00-0.02) K/uL Sodium 138 (136-145) mmol/L Potassium 3.4 L (3.5-5.1) mmol/L Chloride 105 (98-107) mmol/L Carbon Dioxide 25 (21-32) mmol/L Anion Gap 8 (3-11) BUN 19 (6-23) mg/dl Creatinine 0.68 (0.6-1.2) mg/dl Est Cr Clr Drug Dosing 56.8 ml/min Est GFR ( Amer) 92.4 ml/min Est GFR (Non-Af Amer) 79.8 ml/min BUN/Creatinine Ratio 27.9 H (10-20) Glucose 109 H (70-99(Fasting)) mg/dl Lactate (0.4-2.0) mmol/L Calcium 7.9 L (8.5-10.1) mg/dl Magnesium 1.9 (1.7-2.4) mg/dl Total Bilirubin 1.3 H (0.2-1.0) mg/dl Direct Bilirubin 0.3 H (0-0.2) mg/dl AST 168 H (13-39) U/L ALT 70 H (7-52) U/L Alkaline Phosphatase 77 (34-104) U/L Troponin I High Sens 168.1 H* (0-14) pg/ml Total Protein 6.4 (6.0-8.3) gm/dl Albumin 3.7 (3.4-5.0) gm/dl Procalcitonin (0-0.5) ng/ml Nasal Screen MRSA (PCR) (Negative) SARS-CoV-2 (PCR) NEGATIVE (Negative) Influenza Type A (PCR) Positive A* (Neg) Influenza Type B (PCR) Negative (Neg) RSV (RT-PCR) Negative (Neg) 01/26/22 01/26/22 01/26/22 Range/Units 09:24 09:24 09:40 WBC (4.8-10.8) K/ul RBC (3.93-5.22) M/uL Hgb (12.0-16.0) g/dl Hct (34.1-44.9) % MCV (80.0-100.0) fL MCH (25.0-34.0) pg MCHC (32.0-36.0) g/dL RDW Std Deviation (36.4-46.3) fL RDW Coeff of Aashish (11.5-14.5) % Plt Count (130-400) K/uL MPV (9.4-12.3) fL Immature Gran % (Auto) % Neut % (Auto) % Lymph % (Auto) % Reeves % (Auto) % Eos % (Auto) % Baso % (Auto) % Neut # (Auto) (1.4-6.5) K/uL Lymph # (Auto) (1.2-3.4) K/uL Reeves # (Auto) (0.24-0.82) K/uL Eos # (Auto) (0-0.50) K/uL Baso # (Auto) (0-0.2) K/uL Immature Gran # (Auto) (0.00-0.02) K/uL Sodium (136-145) mmol/L Potassium (3.5-5.1) mmol/L Chloride (98-107) mmol/L Carbon Dioxide (21-32) mmol/L Anion Gap (3-11) BUN (6-23) mg/dl Creatinine (0.6-1.2) mg/dl Est Cr Clr Drug Dosing ml/min Est GFR ( Amer) ml/min Est GFR (Non-Af Amer) ml/min BUN/Creatinine Ratio (10-20) Glucose (70-99(Fasting)) mg/dl Lactate 0.9 (0.4-2.0) mmol/L Calcium (8.5-10.1) mg/dl Magnesium (1.7-2.4) mg/dl Total Bilirubin (0.2-1.0) mg/dl Direct Bilirubin (0-0.2) mg/dl AST (13-39) U/L ALT (7-52) U/L Alkaline Phosphatase (34-104) U/L Troponin I High Sens (0-14) pg/ml Total Protein (6.0-8.3) gm/dl Albumin (3.4-5.0) gm/dl Procalcitonin 0.08 (0-0.5) ng/ml Nasal Screen MRSA (PCR) Negative (Negative) SARS-CoV-2 (PCR) (Negative) Influenza Type A (PCR) (Neg) Influenza Type B (PCR) (Neg) RSV (RT-PCR) (Neg) Administered Medications Discontinued Medications Sodium Chloride (Nss 1000ml) 1,000 mls @ 999 mls/hr IV .Q1H1M PRIMO Stop: 01/26/22 10:30 Last Infusion: 01/26/22 11:11 Dose: 0 mls/hr Documented By: Admin: 01/26/22 09:35 Dose: 999 mls/hr Documented By: FALSE PASS Cefepime HCl (Maxipime) 2,000 mg in 20 mls @ 5 mls/min IV NOW STA; Protocol Stop: 01/26/22 09:25 Last Admin: 01/26/22 10:17 Dose: 5 mls/min Documented By: MATIAS Acetaminophen (Ofirmev) 1,000 mg in 100 mls @ 400 mls/hr IV NOW STA Stop: 01/26/22 09:36 Last Infusion: 01/26/22 10:17 Dose: 0 mls/hr Documented By: Admin: 01/26/22 09:35 Dose: 400 mls/hr Documented By: FALSE PASS Sodium Chloride (Nss 1000ml) 600 mls @ 999 mls/hr IV .Q37M ONE Stop: 01/26/22 11:14 Last Infusion: 01/26/22 12:06 Dose: 0 mls/hr Documented By: Admin: 01/26/22 11:39 Dose: 999 mls/hr Documented By: ESTHER Calcium Gluconate () 1,000 mg in 60 mls @ 240 mls/hr IV NOW STA Stop: 01/26/22 10:52 Last Infusion: 01/26/22 12:05 Dose: 0 mls/hr Documented By: Admin: 01/26/22 11:38 Dose: 240 mls/hr Documented By: ESTHER Ondansetron HCl (Ondansetron Inj 2 Mg/Ml 2 Ml Vial) 4 mg IV NOW STA Stop: 01/26/22 09:23 Last Admin: 01/26/22 09:35 Dose: 4 mg Documented By: FALSE PASS Oseltamivir Phosphate (Oseltamivir Phosphate 75 Mg Cap) 75 mg PO NOW STA; Protocol Stop: 01/26/22 10:39 Last Admin: 01/26/22 11:39 Dose: 75 mg Documented By: ESTHER Imaging Data Radiologist's Impression: Chest X-Ray 01/26/22 09:22 XR chest 1V portable HISTORY: 86 years-old Female Sepsis acute sepsis COMPARISON: 01/25/2022 TECHNIQUE: AP view of the chest FINDINGS: Cardiomediastinal and hilar silhouettes are unchanged. Chronic interstitial coarsening of the lung bases. Atherosclerosis of the aorta. No pneumothorax, large pleural effusion or overt pulmonary edema. Degenerative changes of the shoulders and spine. IMPRESSION: No acute process. ACT 112: Negative or not required by law. The above report was generated using voice recognition software. It may contain grammatical, syntax or spelling errors. Electronically signed by: Barrera Ness M.D. 01/26/2022 9:51 AM Discharge Plan Visit Data Chief Complaint: Illness Stated Complaint: FEVER, WEAKNESS ED Provider: Wagner Oquendo Discharge Problem: Sepsis, Elevated troponin, Weakness, Influenza A, Hypocalcemia Patient Disposition: Admitted As Inpatient Forms Stand Alone Forms: [facility] Prescriptions Prescriptions: No Action atorvastatin 40 mg tablet 40 mg PO DAILY Qty: 90 2RF benztropine 1 mg tablet 1 mg PO BID PRN (Reason: drooling) Qty: 30 3RF mecobalamin (vitamin B12) 1,000 mcg tablet,chewable 1,000 mcg PO QAM risedronate [Actonel] 35 mg tablet 35 mg PO WEEKLY Qty: 4 0RF Rx Instructions: SUNDAY aspirin [Adult Aspirin Regimen] 81 mg tablet,delayed release (DR/EC) 81 mg PO HS melatonin 5 mg tablet 5 mg PO HS PRN (Reason: sleep) polyethylene glycol 3350 [Miralax] 17 gram Powder In Packet 17 g PO HS cholecalciferol (vitamin D3) [Vitamin D3] 5,000 unit Tablet 5,000 unit PO QAM calcium carbonate-vitamin D3 [Caltrate with Vitamin D3] 600 mg-20 mcg (800 unit) Tablet 1 tab PO BID acetaminophen [Tylenol Arthritis Pain] 650 mg Tablet Extended Release 650 mg PO Q8H PRN (Reason: Pain) Referrals Referrals: Sasha Beck MD [Primary Care Provider] -
[2022-01-26] MEDS ORDERED: CEFEPIME 2,000 MG/20 ML VIAL IV STA (09:22)
[2022-01-26] MEDS ORDERED: ACETAMINOPHEN 1,000 MG/100 ML VIAL IV STA (09:22)
[2022-01-26] MEDS ORDERED: ONDANSETRON INJ 2 MG/ML 2 ML VIAL IV STA (09:22)
[2022-01-26] MEDS ORDERED: SODIUM CHLORIDE 0.9% 1000ML 1,000 ML IV SCH (09:30)
[2022-01-26 09:41] LABS: Basophils # (auto) 0.02 K/uL (0-0.2); Basophils % (auto) 0.2 %; Eosinophils # (auto) 0.01 K/uL (0-0.50); Eosinophils % (auto) 0.1 %; Hematocrit (blood only) 38.4 % (34.1-44.9); Hemoglobin 13.2 g/dl (12.0-16.0); Immature Granulocytes # (auto) 0.04 K/uL (0.00-0.02); Immature Granulocytes % (auto) 0.4 %; Lymphocytes # (auto) 0.91 K/uL (1.2-3.4); Lymphocytes % (auto) 8.5 %; Mean Corpuscular Hemoglobin 30.6 pg (25.0-34.0); Mean Corpuscular Hgb Conc 34.4 g/dL (32.0-36.0); Mean Corpuscular Volume 88.9 fL (80.0-100.0); Mean Platelet Volume 9.3 fL (9.4-12.3); Monocytes # (auto) 0.56 K/uL (0.24-0.82); Monocytes % (auto) 5.3 %; Neutrophils # (auto) 9.11 K/uL (1.4-6.5); Neutrophils % (auto) 85.5 %; Platelet Count 202 K/uL (130-400); RDW Coefficient of Variation 11.9 % (11.5-14.5); RDW Standard Deviation 38.8 fL (36.4-46.3); Red Blood Count 4.32 M/uL (3.93-5.22); White Blood Count 10.65 K/ul (4.8-10.8)
--- NOTE | 2022-01-26 09:53 | XRay Report ---
XR chest 1V portable HISTORY: 86 years-old Female Sepsis acute sepsis COMPARISON: 01/25/2022 TECHNIQUE: AP view of the chest FINDINGS: Cardiomediastinal and hilar silhouettes are unchanged. Chronic interstitial coarsening of the lung ba ses. Atherosclerosis of the aorta. No pneumothorax, large pleural effusion or overt pulmonary edema. Degenerative changes of the shoulders and spine. IMPRESSION: No acute process. ACT 112: Negative or not required by law. The above report was generated using voice recognition software. It may contain grammatical, syntax o r spelling errors. Electronically signed by: Barrera Ness M.D. 01/26/2022 9:51 AM
[2022-01-26 10:03] LABS: Albumin Level 3.7 gm/dl (3.4-5.0); BUN Creatinine Ratio 27.9 (10-20); Bilirubin Direct 0.3 mg/dl (0-0.2); Bilirubin,Total 1.3 mg/dl (0.2-1.0); Calcium 7.9 mg/dl (8.5-10.1); Creatinine Clr Calc Pharmacy 56.8 ml/min; Est GFR (African American) 92.4 ml/min; Est GFR (Non-African American) 79.8 ml/min; Magnesium 1.9 mg/dl (1.7-2.4); Potassium 3.4 mmol/L (3.5-5.1); Total Protein 6.4 gm/dl (6.0-8.3)
[2022-01-26 10:25] LABS: Influenza B virus by PCR Negative (Neg); RSV by PCR Negative (Neg); SARS CoV2 RNA(COVID-19) Ceph NEGATIVE (Negative)
[2022-01-26 10:26] LABS: Troponin I High Sensitivity 168.1 pg/ml (0-14)
[2022-01-26 10:36] LABS: Influenza A virus by PCR Positive (Neg)
[2022-01-26] MEDS ORDERED: SODIUM CHLORIDE 0.9% 1000ML 600 ML IV ONE (10:38)
[2022-01-26] MEDS ORDERED: OSELTAMIVIR PHOSPHATE 75 MG CAP PO STA (10:38)
[2022-01-26] MEDS ORDERED: CALCIUM GLUCONATE 1,000 MG/60 ML BAG IV STA (10:38)
--- NOTE | 2022-01-26 11:08 | History & Physical Report ---
Date of Service January 26, 2022 Assessment & Plan (1) Influenza A: Plan: - Positive for influenza A 01/25, with 2 days of weakness, body aches, fevers, nausea, mildly productive cough - Patient is vaccinated for both influenza and COVID. - Will start Tamiflu, renally dosed 30 mg twice daily, and offer supportive care such as Tylenol for fever/pain, flutter valve/incentive spirometry, DuoNebs, IV fluids, antitussive. - Isolation precautions. (2) Sepsis: Plan: - T 38.4 C, HR > 110s. - Secondary to influenza A. - Lactate 0.9, procalcitonin 0.08 - Without leukocytosis, tachypnea, hypotension, altered mental status. - We will treat for influenza as above, no indication for antibiotics at this time. Continue IV fluids. Maintaining MAP >65 without fluids or pressors. (3) Elevated troponin: Plan: - Suspect this is demand ischemia in setting of febrile illness with tachycardia, possibly hypoxia over past few days at home. - Troponin 168, will trend troponin and update echo; EKG without any concerning ST segment or T wave changes. - Potassium was mildly low at 3.4, will aim for potassium 4.0, magnesium 2.0 while ruling out cardiac etiology. - Echo December 2019: Hyperdynamic systolic function without WMA, mild LVH, no valvular pathology. (4) LFT elevation: Plan: - T. bili 1.3, D bili 0.3, AST 160, ALT 70. - Could be due to influenza, will also considering rhabdo given recent falls and GB disease, although feels less likely without any RUQ pain or leukocytosis. - Patient not complaining of any specific abdominal pain outside just general diffuse body aches from flu. Does still have a gallbladder. - Low suspicion for gallbladder disease but will obtain RUQ U/S and obtain CK to r/o rhabdo. (5) Sinus tachycardia: Plan: - At baseline she tends to be tachycardic to the [id number], suspect is slightly elevated in the setting of infection, will be on telemetry unit. - Previously wore Holter monitor April of this year that noted sinus tachycardia with occasional PVCs but no significant dysrhythmias during her falls. (6) Weakness: Plan: - Balance and frequent falls is an ongoing issue for the patient which she is followed with neurology and has had hospitalizations previously for this. Weakness likely baseline and exacerbated with influenza. - PT/OT will be ordered for patient admitted. Patient may require placement after hospitalization due to deconditioning or recovering from flu. (7) History of CVA (cerebrovascular accident): Plan: - Brain MRI on 03/2021 showed "cerebral cortical atrophy and very prominent remote small vessel disease". - Continue aspirin for secondary prevention; statin on hold for LFT elevation. 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 - PT/OT as above, fall precautions in place. (9) Hyperlipidemia: Plan: - Hold statin for now given elevated LFTs. (10) MGUS (monoclonal gammopathy of unknown significance): Plan: - Has follow-up with Dr. Dustin nicole/ libra/onc as recently as earlier this month, she has no clinical symptoms to suggest progression of multiple myleoma. - Current plan is to continue observation with follow-up in 6 months to obtain labs including SPEP with [facility], quantitative immunoglobulins, serum free light chains and 24-hour UPEP with [facility]. Plan - Admit to med/tele. - SCDs, Lovenox for VTE ppx. - DNR/DNI. History of Present Illness Chief Complaint: weakness, fever, SOB x 2 days Primary Care Provider: Sasha Beck MD Jeanette Tavarez is an 86-year-old female with past medical history significant for previous CVA, hyperlipidemia, LVH, tachycardia, PVCs, parkinsonism, neuropathy, frequent falls, and MGUS who presented today with generalized weakness and fever. She did have a fall on the evening of 01/24 and was evaluated in our ED with imaging, no acute fractures or intracranial findings at the time and per her request she was discharged home. Since then she has not had any more falls but has developed generalized body aches, severe weakness, and fevers at home. She has also developed a loose cough with mild sputum production and her appetite has not been great over the past 2 days. Mildly nauseous without any vomiting, abdominal pain, diarrhea, constipation, or dysuria. On presentation to the ED, she is febrile 38.4 C, HR 117, BP 153/98, 93% on room air. She is positive for influenza A, with troponin of 168, AST 168, ALT 170, T bili 1.3, D bili 0.3, calcium 7.9, potassium 3.4. Without leukocytosis, lactate 0.9, Pro-Girish 0.08. CXR without evidence of pneumonia or other acute process. Allergies Allergy/AdvReac Type Severity Reaction Status Date / Time adhesive Allergy Rash Verified 01/26/22 12:20 levetiracetam [From Kera] AdvReac Intermediate worse Verified 01/26/22 12:20 tremor codeine AdvReac Mild Vomiting Verified 01/26/22 12:20 Home Medications Medication Instructions Recorded Confirmed Type cholecalciferol (vitamin D3) 125 5,000 unit PO QAM 10/12/17 01/26/22 History mcg (5,000 unit) tablet (Vitamin D3) polyethylene glycol 3350 17 gram 17 g PO HS 10/12/17 01/26/22 History oral powder packet (Miralax) risedronate 35 mg tablet (Actonel) 35 mg PO WEEKLY #4 tabs 08/01/18 01/26/22 Rx mecobalamin (vitamin B12) 1,000 1,000 mcg PO QAM 04/07/19 01/26/22 History mcg chewable tablet aspirin 81 mg tablet,delayed 81 mg PO HS 10/14/19 01/26/22 History release (Adult Aspirin Regimen) atorvastatin 40 mg tablet 40 mg PO DAILY #90 tabs 05/18/21 01/26/22 Rx melatonin 5 mg tablet 5 mg PO HS PRN sleep 11/21/21 01/26/22 History benztropine 1 mg tablet 1 mg PO BID PRN drooling #30 tabs 01/20/22 01/26/22 Rx acetaminophen 650 mg 650 mg PO Q8H PRN Pain 01/26/22 01/26/22 History tablet,extended release (Tylenol Arthritis Pain) calcium carbonate 600 mg-vitamin 1 tab PO BID 01/26/22 01/26/22 History D3 20 mcg (800 unit) tablet (Caltrate with Vitamin D3) Past Med/Surg History Medical History Anxiety Basal cell carcinoma (BCC) of dorsum of nose WITH EXCISION Chronic back pain Degenerative disc disease Falls frequently FREQUENT Fracture of sacrum HEALED Hearing deficit History of CVA (cerebrovascular accident) Hx of fracture LUMBAR AREA> HEALED Hyperlipidemia Hypothyroidism Idiopathic peripheral neuropathy Lower extremity numbness Maxillary fracture HAIRLINE 09/14/2017 AFTER FALL Osteoporosis Parkinsonism Scoliosis Spinal stenosis Tinnitus resolved Surgical History H/O hysterectomy with unilateral oophorectomy 1979 R H/O left cataract extraction H/O Moh's micrographic surgery for skin cancer 2019 H/O oophorectomy 1969 L H/O right cataract extraction History of appendectomy 1969 History of breast biopsy 2017 R BENIGN History of colonoscopy History of tonsillectomy and adenoidectomy 1942 S/P trigger finger release L HAND S/P wrist surgery L PLATE Family History Son Family history of diabetes mellitus Daughter Family history of diabetes mellitus Mother Cervical cancer Father Myocardial infarction Brother Myocardial infarction Denies family history of Ovarian cancer Prostate cancer Breast cancer Colorectal cancer Social History Smoking Status: Never smoker Second Hand Exposure: No; Hx Alcohol Use: No Hx Substance Use: No Preferred Language: Cook Islander Communication Ability: Effective Visual Impairment: No Limitations Hearing Ability: Use of Hearing Aid 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 caffeine: No during the past year weight has: remained stable Dental Care, Regularly: Yes Physical Activity Frequency: Daily Seatbelt Use: always Sunscreen Use: No Assistive Devices: Walker Review of Systems Review of Systems: Constitutional: No fever/chills, weakness, fatigue, myalgias, anorexia, x 1 day; no night sweats Eyes: No diplopia, no worsening or blurred vision ENT: normal hearing, no trouble swallowing Respiratory: wet cough with minimal sputum production, SOB with exertion Cardiovascular: No chest pain, tightness or palpitations Abdomen: mild nausea, no pain, vomiting, diarrhea or constipation : Denies dysuria, hematuria, increased urgency/frequency, urinary retention Musculoskeletal: No joint pain, calf pain, swelling Neurologic: No weakness, numbness/tingling, or balance problems Psychiatric: No anxiety or depression Skin: No rash or itch Physical Exam Physical Exam: General: awake, alert, no apparent distress, appears rundown and fatigued Head: Normocephalic, atraumatic ENT: some left eye swelling s/p fall 01/24; PERRL, EOMI, no pharyngeal exudate, mucous membranes moist Chest: coughs several times during exam; clear to auscultation, on 2L NC, no adventitious breath sounds Cardiac: tachycardic rate and rhythm, no murmur, no JVD, normal peripheral pulses, good capillary refill Abdominal: NABS x 4 quadrants, soft, nontender to palpation, no rebound, guarding or tenderness Extremities: Normal inspection, no peripheral edema or erythema, calfs nontender to palpation Psych: Normal mood and affect Neuro: AAO x 3, strength intact bilaterally and rated 5/5, no motor deficits, speech is clear, no peripheral sensory deficits Skin: no rash or erythema Results & Data Results & Data ([facility]) Vital Signs (Past 12 Hours) Vital Signs Temp Pulse Pulse Resp BP BP Pulse Ox 01/26/22 09:29 117 H 18 153/98 H 96 01/26/22 09:19 117 H 18 153/98 H 93 01/26/22 09:19 38.4 C H 117 H 16 153/98 H 93 Laboratory Results Abnormal lab results 01/26/22 01/26/22 01/26/22 Range/Units 09:11 09:24 09:24 MPV 9.3 L (9.4-12.3) fL Neut # (Auto) 9.11 H (1.4-6.5) K/uL Lymph # (Auto) 0.91 L (1.2-3.4) K/uL Immature Gran # (Auto) 0.04 H (0.00-0.02) K/uL Potassium 3.4 L (3.5-5.1) mmol/L BUN/Creatinine Ratio 27.9 H (10-20) Glucose 109 H (70-99(Fasting)) mg/dl Calcium 7.9 L (8.5-10.1) mg/dl Total Bilirubin 1.3 H (0.2-1.0) mg/dl Direct Bilirubin 0.3 H (0-0.2) mg/dl AST 168 H (13-39) U/L ALT 70 H (7-52) U/L Troponin I High Sens 168.1 H* (0-14) pg/ml Influenza Type A (PCR) Positive A* (Neg) Diagnostic Findings Chest X-Ray 01/26/22 09:22 XR chest 1V portable HISTORY: 86 years-old Female Sepsis acute sepsis COMPARISON: 01/25/2022 TECHNIQUE: AP view of the chest FINDINGS: Cardiomediastinal and hilar silhouettes are unchanged. Chronic interstitial coarsening of the lung bases. Atherosclerosis of the aorta. No pneumothorax, large pleural effusion or overt pulmonary edema. Degenerative changes of the shoulders and spine. IMPRESSION: No acute process. ACT 112: Negative or not required by law. The above report was generated using voice recognition software. It may contain grammatical, syntax or spelling errors. Electronically signed by: Barrera Ness M.D. 01/26/2022 9:51 AM ECG Additional Comments: Sinus tachycardia with occasional Premature ventricular complexes Septal infarct (cited on or before 28-OCT-2021) Abnormal ECG When compared with ECG of 25-JAN-2022 04:08, (unconfirmed) Premature ventricular complexes are now Present Premature atrial complexes are no longer Present. Code Status & VTE Plan Code Status DNR/DNI. VTE Prophylaxis Plan VTE Prophylaxis will be ordered: Yes Supervising Physician Co-Signing Physician Notes PA Supervision Note: I personally saw and examined the patient. I verified all mann points and agree with SARAHY Mason with the following exceptions and/or additions: S-this patient is an 86-year-old female with history noted as above, who p resents with fevers, general malaise, weakness with recent fall, and cough. Had some mild nausea but no vomiting, has not moved her bowels in 4 days. No abdominal pains. She reports "I feel the worst I have in my life." Found to be positive for influenza A in the ER. Was placed on 2 L nasal cannula although her pulse ox was never lower than 90% as per ER physician. Chest x-ray negative for pneumonia but does have some interstitial thickening or perhaps scarring at the bases of the lungs which is chronic. Troponin mildly elevated but ECG without ischemia and she has no chest pains. She was febrile, tachycardic, but blood pressures are normal. She was given a dose of IV cefepime. Procalcitonin negative. Blood cultures were drawn. She was also given a dose of Tamiflu. History and ROS otherwise reviewed as above O- Vitals reviewed Gen: AAOx3, NAD, appears ill HEENT: Anicteric sclerae, EOMI, PERRLA, left periorbital and lid edema from recent fall CV: Mild tachycardia, regular rhythm, no mgr nl S1S2 Pulm: CTAB no wcr, positive cough with inspiration Abd: +BS soft NT ND no masses or hernias Ext: No edema, 2+ DP pulses Skin: No rashes, warm/dry Neuro: Full strength throughout Labs, Rads, and ECG reviewed A/O-26-slzu-old female here with influenza a, sepsis, elevated troponin, and elevated LFTs with recent fall from weakness. Admit with supportive care as outlined above, treat with Tamiflu to be renally dosed. Serial troponins and echocardiogram to evaluate for wall motion abnormalities and check ejection fraction Follow LFTs and get RUQ ultrasound but likely secondary to possibly mild rhabdo versus effect from influenza Constipation-add on docusate and continue her daily MiraLAX PG Care Time/CCT Total # of Minutes Spent Total Time Spent with Patient: Total time spent is greater than 50% in coordination of care (as documented) at patient's floor/unit and/or counseling patient: Coding Level of Care Code 70239 Initial Inpt Care Lvl 3 Diagnoses Influenza A J10.1 Sepsis A41.9 Elevated troponin R77.8 LFT elevation R79.89 Sinus tachycardia R00.0 Weakness R53.1 History of CVA (cerebrovascular accident) Z86.73 Neurologic gait disorder R26.9 Hyperlipidemia E78.5 MGUS (monoclonal gammopathy of unknown significance) D47.2
[2022-01-26] MEDS ORDERED: POTASSIUM CHLORIDE CRTAB 20 MEQ TABCR PO STA (11:49)
[2022-01-26 13:27] LABS: Troponin I High Sensitivity 173.3 pg/ml (0-14)
[2022-01-26] MEDS ORDERED: DOCUSATE SODIUM 100 MG CAP PO PRN (14:03)
[2022-01-26] MEDS ORDERED: ONDANSETRON INJ 2 MG/ML 2 ML VIAL IV PRN (14:03)
[2022-01-26] MEDS ORDERED: BENZTROPINE MESYLATE 1 MG TAB PO PRN (14:03)
[2022-01-26] MEDS ORDERED: NON-FORMULARY MEDICATION (Acetaminophen [Tylenol Arthritis Pain] 650 mg Tablet Extended Re PO PRN (14:03)
[2022-01-26] MEDS ORDERED: ALBUT/IPRATROP 3MG/0.5MG NEB 3 ML VIAL NEB PRN (14:03)
[2022-01-26] MEDS ORDERED: ALUMINUM/MAGNESIUM SUSP 30 ML UDC PO PRN (14:03)
[2022-01-26] MEDS ORDERED: guaiFENesin/DEXTROM SYRUP 200MG/20MG 10ML UDC PO PRN (14:03)
[2022-01-26] MEDS ORDERED: IBUPROFEN 600 MG TAB PO PRN (14:03)
[2022-01-26] MEDS ORDERED: MELATONIN 3 MG TAB PO PRN (14:08)
[2022-01-26] MEDS: ALBUT/IPRATROP 3MG/0.5MG NEB 3 ML VIAL INH SCH ×2 (14:29→19:29)
[2022-01-26] MEDS: ENOXAPARIN INJ 40 MG/0.4 ML SYR SQ SCH (15:07)
[2022-01-26] MEDS: LACTATED RINGER'S 1,000 ML IV SCH ×2 (15:07→23:08)
--- NOTE | 2022-01-26 18:39 | XCELERA ---
[id number]
[2022-01-26 20:50] LABS: Appearance Urine Clear (Clear); Bacteria Urine Automated Negative (Negative); Bilirubin Urine Negative (Negative); Blood Urine Negative (Negative); Cast Urine Automated 0 /lpf (0-5); Color Urine Yellow; Epithelial Cell Urine Auto >30 /lpf (0-5); Glucose Urine UA Negative (Negative); Ketones Urine Trace (Negative); Leukocyte Esterase Urine Trace (Negative); Nitrite Urine Negative (Negative); Protein Urine Trace (Negative); RBC Urine Automated 0-4 /hpf (0-4); Specific Gravity Urine 1.019 (1.000-1.030); Urobilinogen Urine Negative (Negative); pH Urine 5.5 (4.5-7.5)
[2022-01-26] MEDS ORDERED: CALCIUM CARBONATE VITAMIN D3 PO SCH (21:00)
[2022-01-26] MEDS ORDERED: VITAMIN D3 PO SCH (21:00)
[2022-01-26] MEDS ORDERED: [UNRECOGNIZED DRUG - OTHER] PO SCH (21:00)
[2022-01-26] MEDS: POLYETHYLENE (MIRALAX) 17 GM PACK PO SCH (23:09)
[2022-01-26] MEDS: guaiFENesin 600 MG TABCR PO SCH (23:17)
[2022-01-26] MEDS: CALCIUM 600MG + VIT D 400 IU TAB PO SCH (23:18)
[2022-01-26] MEDS: ASPIRIN 81 MG ECTAB PO SCH (23:18)
[2022-01-26] MEDS: MELATONIN 3 MG TAB PO PRN (23:25)
[2022-01-27] MEDS: ACETAMINOPHEN 325 MG TAB PO PRN ×2 (00:12→15:10)
[2022-01-27] MEDS: ALBUT/IPRATROP 3MG/0.5MG NEB 3 ML VIAL INH SCH ×4 (01:30→20:08)
[2022-01-27] MEDS: LACTATED RINGER'S 1,000 ML IV SCH ×2 (06:19→14:06)
[2022-01-27 08:55] LABS: Basophils # (auto) 0.02 K/uL (0-0.2); Basophils % (auto) 0.3 %; Eosinophils # (auto) 0.04 K/uL (0-0.50); Eosinophils % (auto) 0.5 %; Hematocrit (blood only) 35.8 % (34.1-44.9); Immature Granulocytes # (auto) 0.03 K/uL (0.00-0.02); Immature Granulocytes % (auto) 0.4 %; Lymphocytes # (auto) 1.65 K/uL (1.2-3.4); Lymphocytes % (auto) 21.3 %; Mean Corpuscular Hemoglobin 30.5 pg (25.0-34.0); Mean Corpuscular Hgb Conc 33.5 g/dL (32.0-36.0); Mean Corpuscular Volume 91.1 fL (80.0-100.0); Mean Platelet Volume 9.3 fL (9.4-12.3); Monocytes # (auto) 0.42 K/uL (0.24-0.82); Monocytes % (auto) 5.4 %; Neutrophils # (auto) 5.59 K/uL (1.4-6.5); Neutrophils % (auto) 72.1 %; Platelet Count 166 K/uL (130-400); RDW Standard Deviation 40.4 fL (36.4-46.3); Red Blood Count 3.93 M/uL (3.93-5.22); White Blood Count 7.75 K/ul (4.8-10.8)
[2022-01-27 09:24] LABS: Albumin Globulin Ratio 1.3 (0.9-2); Albumin Level 3.1 gm/dl (3.4-5.0); BUN Creatinine Ratio 20.3 (10-20); Bilirubin,Total 0.8 mg/dl (0.2-1.0); Calcium 7.9 mg/dl (8.5-10.1); Creatinine Clr Calc Pharmacy 52.2 ml/min; Est GFR (African American) 85.6 ml/min; Est GFR (Non-African American) 73.9 ml/min; Globulin 2.4 gm/dl (2.5-4.0); Magnesium 1.9 mg/dl (1.7-2.4); Potassium 3.4 mmol/L (3.5-5.1); Total Protein 5.5 gm/dl (6.0-8.3); Troponin I High Sensitivity 50.1 pg/ml (0-14)
[2022-01-27] MEDS: guaiFENesin 600 MG TABCR PO SCH ×2 (09:32→20:18)
[2022-01-27] MEDS: CHOLECALCIFEROL 5,000 UNITS 125 MCG TAB PO SCH (09:32)
[2022-01-27] MEDS: CALCIUM 600MG + VIT D 400 IU TAB PO SCH ×2 (09:32→20:18)
[2022-01-27] MEDS: CYANOCOBALAMIN (B-12) 500 MCG TABLET PO SCH (09:33)
[2022-01-27] MEDS: OSELTAMIVIR PHOSPHATE SUSP 30 MG/5 ML UDP PO SCH ×2 (09:37→20:27)
--- NOTE | 2022-01-27 11:56 | Ultrasound Report ---
ABDOMINAL ULTRASOUND, RIGHT UPPER QUADRANT HISTORY: elevated lfts, t bili. COMPARISON: Abdomen and pelvis CT 04/22/2020. FINDINGS: Pancreas: The visualized pancreas demonstrates a normal echotexture. Liver: Unremarkable. Gallbladder: No gallbladder wall thickening. No gallstones. CBD: 7 mm. This is within normal limits for the patient's age. Right kidney: No hydronephrosis. Stable 1.8 cm right adrenal gland nodule. IMPRESSION: 1. Normal gallbladder. No gallstones. 2. Normal liver. 3. Stable 1.8 cm right adrenal gland nodule. ACT 112: Negative or not required by law. Electronically signed by: Bairon Coates M.D. 01/27/2022 11:54 AM
[2022-01-27] MEDS: ENOXAPARIN INJ 40 MG/0.4 ML SYR SQ SCH (15:09)
--- NOTE | 2022-01-27 19:30 | Hospitalist Progress Note ---
Date of Service January 27, 2022 Assessment & Plan (1) Influenza A: Plan: - Positive for influenza A 01/25,presented with 2 days of weakness, body aches, fevers, nausea, mildly productive cough - Patient is vaccinated for both influenza and COVID. With acute respiratory failure with hypoxia, still requiring 3 LNC, frequent cough, malaise but improving - continue Tamiflu, renally dosed 30 mg twice daily x 5 day course -continue supportive care such as Tylenol for fever/pain,IVFs now will be stopped -continue pulm toilet with flutter valve/incentive spirometry, DuoNebs, antitussive. - Isolation precautions. (2) Sepsis: Plan: - T 38.4 C, HR > 110s. Now improving BCxs NGTD Procal negative x 2, lactate neg, do not suspect bacterial PNA - Secondary to influenza A. - Without leukocytosis, tachypnea, hypotension, altered mental status. - continue to treat for influenza as above, no indication for antibiotics at this time. (3) Acute respiratory failure with hypoxia: Plan: / influenza no PNA on CXR continue supplemental O2 and wean off as tolerated (4) Rhabdomyolysis: Plan: CK in 3000s on admission, checked for h/o fall and elevated AST,ALT Improving now after IVF hydration developing crackles on exam--> dc IVFs follow CK in AM (5) Elevated troponin: Plan: - Suspect this is demand ischemia in setting of febrile illness with tachycardia, possibly hypoxia over past few days at home. - Troponin 168 on admission and peaked at 173; EKG without any concerning ST segment or T wave changes; ECHO with EF>70, no WMAs, and small pericardial effusion (unchanged from previous) - Potassium was mildly low at 3.4, will aim for potassium 4.0, magnesium 2.0 while ruling out cardiac etiology. Give KCl 20 meq po x 1 (6) LFT elevation: Plan: - T. bili 1.3, D bili 0.3, AST 160, ALT 70. LFTs all now improving/normalized Secondary to rhabdo and influenza RUQ US normal no abd pain (7) Sinus tachycardia: Plan: - At baseline she tends to be tachycardic to the [id number], suspect is slightly elevated in the setting of infection, will be on telemetry unit. - Previously wore Holter monitor April of this year that noted sinus tachycardia with occasional PVCs but no significant dysrhythmias during her falls. (8) Weakness: Plan: - Balance and frequent falls is an ongoing issue for the patient which she is followed with neurology and has had hospitalizations previously for this. Weakness likely baseline and exacerbated with influenza. - PT/OT will be ordered for patient admitted. Patient may require placement after hospitalization due to deconditioning or recovering from flu. (9) History of CVA (cerebrovascular accident): Plan: - Brain MRI on 03/2021 showed "cerebral cortical atrophy and very prominent remote small vessel disease". - Continue aspirin for secondary prevention; statin on hold for LFT elevation. 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 - PT/OT as above, fall precautions in place. (11) Hyperlipidemia: Plan: - Hold statin for now given elevated LFTs. (12) MGUS (monoclonal gammopathy of unknown significance): Plan: - Has follow-up with Dr. Dustin nicole/ heme/onc as recently as earlier this month, she has no clinical symptoms to suggest progression of multiple myleoma. - Current plan is to continue observation with follow-up in 6 months to obtain labs including SPEP with HENRIETTA, quantitative immunoglobulins, serum free light chains and 24-hour UPEP with HENRIETTA. (13) Adrenal nodule: Plan: incidental right 1.8 cm nodule stable from previous seen on RUQ US here follow as outpt (14) Constipation: Plan: chronic no BM since 01/23 prune juice now miralax qhs and docusate prn Plan - continued stay on med/tele. - SCDs, Lovenox for VTE ppx. - DNR/DNI. Offered to call her family but she declined for me to do so at this time. SHe is updating them Admission and Anticipated Discharge Date Admission Date: January 26, 2022 Subjective Pt feels a little better today. Still coughing a lot. Is eating. No BM in 4-5 days, wants prune juice. No CP or SOB. Remain son 3LNC. Was OOB to chair for meals today and ambulating to the bathroom and back independently as per RN. Tele with ST rates 90-110s Review of Systems Review of Systems: All systems reviewed & are unremarkable except as noted in HPI & below Physical Exam Constitutional: WD/WN, vitals as above with hoarse voice Eyes: + anicteric sclerae Neck: trachea midline, no thyromegaly Respiratory: normal respiratory effort and + cough Auscultation: + crackles (bases bilat); no rhonchi and no wheezes Cardiovascular: RRR, no murmur, no edema Chest (Breasts): Chest: normal inspection of chest Gastrointestinal (Abdomen): normal bowel sounds, soft, nontender, no hepatosplenomegaly Musculoskeletal: Extremities: extremities normal to inspection; no cyanosis and no clubbing Skin: no rashes, warm and dry Neurologic: moves all extremities and awake; no focal motor deficits Psychiatric: A+Ox3, euthymic affect Lymphatic: no lymphedema Results & Data Results & Data ([facility]) Vital Signs (Past 12 Hours) Vital Signs Temp Pulse Pulse Resp BP Pulse Ox O2 Del Method 01/27/22 14:05 112 H 01/27/22 13:22 98 H 20 95 Nasal Cannula 01/27/22 10:56 Nasal Cannula 01/27/22 09:29 95 H 20 92 Nasal Cannula 01/27/22 08:20 36.8 C 100 H 18 137/75 94 Nasal Cannula O2 Flow Rate 01/27/22 14:05 01/27/22 13:22 3 01/27/22 10:56 3 01/27/22 09:29 2 01/27/22 08:20 2 Laboratory Results 01/27/22 01/27/22 01/27/22 Range/Units 08:22 08:22 08:22 WBC (4.8-10.8) K/ul RBC (3.93-5.22) M/uL Hgb (12.0-16.0) g/dl Hct (34.1-44.9) % MCV (80.0-100.0) fL MCH (25.0-34.0) pg MCHC (32.0-36.0) g/dL RDW Std Deviation (36.4-46.3) fL RDW Coeff of Aashish (11.5-14.5) % Plt Count (130-400) K/uL MPV (9.4-12.3) fL Immature Gran % (Auto) % Neut % (Auto) % Lymph % (Auto) % [place] % (Auto) % Eos % (Auto) % Baso % (Auto) % Neut # (Auto) (1.4-6.5) K/uL Lymph # (Auto) (1.2-3.4) K/uL [place] # (Auto) (0.24-0.82) K/uL Eos # (Auto) (0-0.50) K/uL Baso # (Auto) (0-0.2) K/uL Immature Gran # (Auto) (0.00-0.02) K/uL Sodium 143 Cancelled Potassium 3.4 L Cancelled Chloride 110 H Cancelled Carbon Dioxide 28 Cancelled Anion Gap 5 Cancelled BUN 15 Cancelled Creatinine 0.74 Cancelled Est Cr Clr Drug Dosing 52.2 Cancelled Est GFR ( Amer) 85.6 Cancelled Est GFR (Non-Af Amer) 73.9 Cancelled BUN/Creatinine Ratio 20.3 H Cancelled Glucose 100 H Cancelled Calcium 7.9 L Cancelled Magnesium 1.9 Cancelled Total Bilirubin 0.8 D Cancelled AST 98 H Cancelled ALT 55 H Cancelled Alkaline Phosphatase 63 Cancelled Total Creatine Kinase 2310 H Cancelled Troponin I High Sens 50.1 H* D (0-14) pg/ml Total Protein 5.5 L Cancelled Albumin 3.1 L Cancelled Globulin 2.4 L Cancelled Albumin/Globulin Ratio 1.3 Cancelled Procalcitonin 0.10 (0-0.5) ng/ml Urine Color Urine Appearance (Clear) Urine pH (4.5-7.5) Ur Specific [place] (1.000-1.030) Urine Protein (Negative) Urine Glucose (UA) (Negative) Urine Ketones (Negative) Urine Blood (Negative) Urine Nitrite (Negative) Urine Bilirubin (Negative) Urine Urobilinogen (Negative) Ur Leukocyte Esterase (Negative) Urine WBC (Auto) (0-5) /hpf Urine RBC (Auto) (0-4) /hpf U Hyaline Cast (Auto) (0-5) /lpf U Epithel Cells (Auto) (0-5) /lpf Urine Bacteria (Auto) (Negative) 01/27/22 01/27/22 01/26/22 Range/Units 08:22 01:03 20:23 WBC 7.75 (4.8-10.8) K/ul RBC 3.93 (3.93-5.22) M/uL Hgb 12.0 (12.0-16.0) g/dl Hct 35.8 (34.1-44.9) % MCV 91.1 (80.0-100.0) fL MCH 30.5 (25.0-34.0) pg MCHC 33.5 (32.0-36.0) g/dL RDW Std Deviation 40.4 (36.4-46.3) fL RDW Coeff of Aashish 12.0 (11.5-14.5) % Plt Count 166 (130-400) K/uL MPV 9.3 L (9.4-12.3) fL Immature Gran % (Auto) 0.4 % Neut % (Auto) 72.1 % Lymph % (Auto) 21.3 % [place] % (Auto) 5.4 % Eos % (Auto) 0.5 % Baso % (Auto) 0.3 % Neut # (Auto) 5.59 (1.4-6.5) K/uL Lymph # (Auto) 1.65 (1.2-3.4) K/uL [place] # (Auto) 0.42 (0.24-0.82) K/uL Eos # (Auto) 0.04 (0-0.50) K/uL Baso # (Auto) 0.02 (0-0.2) K/uL Immature Gran # (Auto) 0.03 H (0.00-0.02) K/uL Sodium Potassium Chloride Carbon Dioxide Anion Gap BUN Creatinine Est Cr Clr Drug Dosing Est GFR ( Amer) Est GFR (Non-Af Amer) BUN/Creatinine Ratio Glucose Calcium Magnesium Total Bilirubin AST ALT Alkaline Phosphatase Total Creatine Kinase Troponin I High Sens 77.9 H* D (0-14) pg/ml Total Protein Albumin Globulin Albumin/Globulin Ratio Procalcitonin (0-0.5) ng/ml Urine Color Yellow Urine Appearance Clear (Clear) Urine pH 5.5 (4.5-7.5) Ur Specific [place] 1.019 (1.000-1.030) Urine Protein Trace H (Negative) Urine Glucose (UA) Negative (Negative) Urine Ketones Trace H (Negative) Urine Blood Negative (Negative) Urine Nitrite Negative (Negative) Urine Bilirubin Negative (Negative) Urine Urobilinogen Negative (Negative) Ur Leukocyte Esterase Trace H (Negative) Urine WBC (Auto) 5-10 H (0-5) /hpf Urine RBC (Auto) 0-4 (0-4) /hpf U Hyaline Cast (Auto) 0 (0-5) /lpf U Epithel Cells (Auto) >30 H (0-5) /lpf Urine Bacteria (Auto) Negative (Negative) 01/26/22 Range/Units 19:45 WBC (4.8-10.8) K/ul RBC (3.93-5.22) M/uL Hgb (12.0-16.0) g/dl Hct (34.1-44.9) % MCV (80.0-100.0) fL MCH (25.0-34.0) pg MCHC (32.0-36.0) g/dL RDW Std Deviation (36.4-46.3) fL RDW Coeff of Aashish (11.5-14.5) % Plt Count (130-400) K/uL MPV (9.4-12.3) fL Immature Gran % (Auto) % Neut % (Auto) % Lymph % (Auto) % [place] % (Auto) % Eos % (Auto) % Baso % (Auto) % Neut # (Auto) (1.4-6.5) K/uL Lymph # (Auto) (1.2-3.4) K/uL [place] # (Auto) (0.24-0.82) K/uL Eos # (Auto) (0-0.50) K/uL Baso # (Auto) (0-0.2) K/uL Immature Gran # (Auto) (0.00-0.02) K/uL Sodium Potassium Chloride Carbon Dioxide Anion Gap BUN Creatinine Est Cr Clr Drug Dosing Est GFR ( Amer) Est GFR (Non-Af Amer) BUN/Creatinine Ratio Glucose Calcium Magnesium Total Bilirubin AST ALT Alkaline Phosphatase Total Creatine Kinase Troponin I High Sens 99.9 H* D (0-14) pg/ml Total Protein Albumin Globulin Albumin/Globulin Ratio Procalcitonin (0-0.5) ng/ml Urine Color Urine Appearance (Clear) Urine pH (4.5-7.5) Ur Specific [place] (1.000-1.030) Urine Protein (Negative) Urine Glucose (UA) (Negative) Urine Ketones (Negative) Urine Blood (Negative) Urine Nitrite (Negative) Urine Bilirubin (Negative) Urine Urobilinogen (Negative) Ur Leukocyte Esterase (Negative) Urine WBC (Auto) (0-5) /hpf Urine RBC (Auto) (0-4) /hpf U Hyaline Cast (Auto) (0-5) /lpf U Epithel Cells (Auto) (0-5) /lpf Urine Bacteria (Auto) (Negative) PG Care Time/CCT Total # of Minutes Spent Total Time Spent with Patient: Total time spent is greater than 50% in coordination of care (as documented) at patient's floor/unit and/or counseling patient: Coding Level of Care Code 82775 Subseq Hosp Care Lvl 3 Diagnoses Influenza A J10.1 Sepsis A41.9 Acute respiratory failure with hypoxia J96.01 Rhabdomyolysis M62.82 Elevated troponin R77.8 LFT elevation R79.89 Sinus tachycardia R00.0 Weakness R53.1 History of CVA (cerebrovascular accident) Z86.73 Neurologic gait disorder R26.9 Hyperlipidemia E78.5 MGUS (monoclonal gammopathy of unknown significance) D47.2 Adrenal nodule E27.8 Constipation K59.00
[2022-01-27] MEDS ORDERED: POTASSIUM CHLORIDE CRTAB 20 MEQ TABCR PO STA (19:45)
[2022-01-27] MEDS: ASPIRIN 81 MG ECTAB PO SCH (20:17)
[2022-01-27] MEDS: POLYETHYLENE (MIRALAX) 17 GM PACK PO SCH (20:27)
[2022-01-27] MEDS: MELATONIN 3 MG TAB PO PRN (20:34)
[2022-01-27] MEDS ORDERED: ALBUT/IPRATROP 3MG/0.5MG NEB 3 ML VIAL INH PRN (21:30)
--- NOTE | 2022-01-28 06:14 | Electrocardiogram Report ---
Test Reason : Blood Pressure : / mmHG Vent. Rate : 111 BPM Atrial Rate : 111 BPM P-R Int : 148 ms QRS Dur : 082 ms QT Int : 346 ms P-R-T Axes : 053 -14 035 degrees QTc Int : 470 ms Sinus tachycardia with occasional Premature ventricular complexes Septal infarct (cited on or before 28-OCT-2021) Abnormal ECG When compared with ECG of 25-JAN-2022 04:08, Premature ventricular complexes are now Present Premature atrial complexes are no longer Present Confirmed by Brian Rosenbaum ([id number]) on 01/28/2022 6:14:40 AM Referred By: REFERRED SELF Confirmed By:Brian Rosenbaum
[2022-01-28 08:18] LABS: Basophils # (auto) 0.02 K/uL (0-0.2); Basophils % (auto) 0.3 %; Eosinophils # (auto) 0.16 K/uL (0-0.50); Eosinophils % (auto) 2.1 %; Immature Granulocytes # (auto) 0.03 K/uL (0.00-0.02); Immature Granulocytes % (auto) 0.4 %; Lymphocytes # (auto) 1.84 K/uL (1.2-3.4); Lymphocytes % (auto) 24.6 %; Mean Corpuscular Hemoglobin 30.9 pg (25.0-34.0); Mean Corpuscular Hgb Conc 34.3 g/dL (32.0-36.0); Mean Corpuscular Volume 90.2 fL (80.0-100.0); Mean Platelet Volume 9.2 fL (9.4-12.3); Monocytes # (auto) 0.45 K/uL (0.24-0.82); Neutrophils # (auto) 4.99 K/uL (1.4-6.5); Neutrophils % (auto) 66.6 %; Platelet Count 214 K/uL (130-400); RDW Standard Deviation 39.8 fL (36.4-46.3); Red Blood Count 3.88 M/uL (3.93-5.22); White Blood Count 7.49 K/ul (4.8-10.8)
[2022-01-28 08:43] LABS: Albumin Globulin Ratio 1.3 (0.9-2); Albumin Level 3.3 gm/dl (3.4-5.0); Bilirubin,Total 0.7 mg/dl (0.2-1.0); Calcium 8.5 mg/dl (8.5-10.1); Creatinine Clr Calc Pharmacy 53.6 ml/min; Est GFR (African American) 91.6 ml/min; Globulin 2.5 gm/dl (2.5-4.0); Magnesium 1.9 mg/dl (1.7-2.4); Potassium 4.1 mmol/L (3.5-5.1); Total Protein 5.8 gm/dl (6.0-8.3)
[2022-01-28] MEDS: CALCIUM 600MG + VIT D 400 IU TAB PO SCH ×2 (08:48→20:28)
[2022-01-28] MEDS: guaiFENesin 600 MG TABCR PO SCH (08:48)
[2022-01-28] MEDS: CYANOCOBALAMIN (B-12) 500 MCG TABLET PO SCH (08:48)
[2022-01-28] MEDS: CHOLECALCIFEROL 5,000 UNITS 125 MCG TAB PO SCH (08:48)
[2022-01-28] MEDS: OSELTAMIVIR PHOSPHATE SUSP 30 MG/5 ML UDP PO SCH ×2 (09:35→21:58)
[2022-01-28] MEDS ORDERED: BENZONATATE 100 MG CAPSULE PO PRN (13:28)
--- NOTE | 2022-01-28 13:30 | Hospitalist Progress Note ---
Date of Service January 28, 2022 Assessment & Plan (1) Influenza A: Plan: - Positive for influenza A 01/25,presented with 2 days of weakness, body aches, fevers, nausea, mildly productive cough - Patient is vaccinated for both influenza and COVID. -With acute respiratory failure with hypoxia, now weaned down to 2 LNC Continues with frequent cough, and worsening malaise, but afebrile now Crackles noted on examination on 01/28-repeat chest x-ray now shows left retr ocardiac pneumonia and trace pleural effusion - continue Tamiflu, renally dosed 30 mg twice daily x 5 day course-last dose will be 02/01 -continue supportive care such as Tylenol for fever/pain -continue pulm toilet with flutter valve/incentive spirometry -Will schedule DuoNebs and schedule guaifenesin DM every 6 hours -Maintain isolation precautions for influenza. -Treatment with antibiotics for pneumonia as below (2) Sepsis: Plan: - T 38.4 C, HR > 110s. Now improving-no longer febrile but malaise worsening, development of secondary bacterial pneumonia BCxs remain NGTD Procal negative x 2 on admission and the next day, lactate neg, initially did not suspect bacterial PNA, but now with development of pneumonia on chest x-ray in a lobar fashion suggestive of bacterial pneumonia - Secondary to influenza A and secondary bacterial pneumonia. -IV fluids given initially but then discontinued on hospital day #2 Hemodynamically stable -Treating with Tamiflu, starting ceftriaxone and azithromycin on 01/28 (3) Pneumonia: Plan: As above Starting antibiotics Follow chest x-ray to resolution (4) Acute respiratory failure with hypoxia: Plan: 2/2 influenza and pneumonia continue supplemental O2 and wean off as tolerated Make DuoNebs scheduled (5) Rhabdomyolysis: Plan: CK almost 5000 on admission, with h/o recent fall and elevated AST,ALT all now much improved after IVF hydration CK down to 1000 No further IV fluids since 01/27 (6) Elevated troponin: Plan: - Suspect this is demand ischemia in setting of febrile illness with tachycardia, possibly hypoxia over past few days at home. - Troponin 168 on admission and peaked at 173; EKG without any concerning ST segment or T wave changes; ECHO with EF>70, no WMAs, and small pericardial effusion (unchanged from previous) (7) LFT elevation: Plan: - T. bili 1.3, D bili 0.3, AST 160, ALT 70. LFTs all now continuing to improve Secondary to rhabdo and influenza RUQ US normal no abd pain (8) Sinus tachycardia: Plan: - At baseline she tends to be tachycardic to the [id number], suspect is slightly elevated in the setting of infection/fever, will be on telemetry unit. - Previously wore Holter monitor April of this year that noted sinus tachycardia with occasional PVCs but no significant dysrhythmias during her falls. Now resolved for the most part (9) Weakness: Plan: - Balance and frequent falls is an ongoing issue for the patient which she is followed with neurology and has had hospitalizations previously for this. Weakness likely baseline and exacerbated with influenza. - PT/OT will be ordered for patient admitted. Patient may require placement after hospitalization due to deconditioning or recovering from flu. (10) History of CVA (cerebrovascular accident): Plan: - Brain MRI on 03/2021 showed "cerebral cortical atrophy and very prominent remote small vessel disease". - Continue aspirin for secondary prevention; statin on hold for LFT elevation. 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 - PT/OT as above, fall precautions in place. (12) Hyperlipidemia: Plan: - Hold statin for now given elevated LFTs. (13) MGUS (monoclonal gammopathy of unknown significance): Plan: - Has follow-up with Dr. Dustin nicole/ heme/onc as recently as earlier this month, she has no clinical symptoms to suggest progression of multiple myleoma. - Current plan is to continue observation with follow-up in 6 months to obtain labs including SPEP with HENRIETTA, quantitative immunoglobulins, serum free light ch ains and 24-hour UPEP with HENRIETTA. (14) Adrenal nodule: Plan: incidental right 1.8 cm nodule stable from previous seen on RUQ US here follow as outpt (15) Constipation: Plan: chronic no BM since 01/23 but then had 1 on 01/28 Continue prune juice as needed Continue miralax qhs and docusate prn Plan - continued stay on med/tele, slow improvement - SCDs, Lovenox for VTE ppx. - DNR/DNI. Offered to call her family but she declined for me to do so at this time. SHe is updating them Admission and Anticipated Discharge Date Admission Date: January 26, 2022 Subjective Patient feeling more fatigued today. Still with a very bad cough. She did not know that she had to request the cough medicine and the albuterol neb treatments as she has not had one since yesterday. She is eating, denies nausea. No shortness of breath but remains on supplemental oxygen. She is not able to bring up any sputum Telemetry with normal sinus rhythm with rates in 80s to 90s Review of Systems Review of Systems: All systems reviewed & are unremarkable except as noted in HPI & below Physical Exam Constitutional: WD/WN, vitals as above Eyes: + anicteric sclerae Neck: trachea midline, no thyromegaly Respiratory: + cough (Persistent); + abnormal respiratory effort (Not taking deep breaths due to severe cough) Auscultation: + crackles (At left base); no rhonchi and no wheezes Cardiovascular: RRR, no murmur, no edema Chest (Breasts): Chest: normal inspection of chest Gastrointestinal (Abdomen): normal bowel sounds, soft, nontender, no hepatosplenomegaly Musculoskeletal: Extremities: extremities normal to inspection; no cyanosis and no clubbing Skin: no rashes, warm and dry Neurologic: moves all extremities and awake; no focal motor deficits Psychiatric: A+Ox3, euthymic affect Lymphatic: no lymphedema Results & Data Results & Data ([facility]) Vital Signs (Past 12 Hours) Vital Signs Temp Pulse Pulse Resp BP Pulse Ox O2 Del Method 01/28/22 11:12 36.3 C L 72 18 113/72 98 Nasal Cannula 01/28/22 10:00 Nasal Cannula 01/28/22 08:06 36.7 C 85 18 121/75 97 Nasal Cannula 01/28/22 07:00 89 01/28/22 02:59 37.1 C 89 18 119/72 94 Nasal Cannula O2 Flow Rate 01/28/22 11:12 2 01/28/22 10:00 2 01/28/22 08:06 2 01/28/22 07:00 01/28/22 02:59 2 Laboratory Results 01/28/22 01/28/22 Range/Units 07:43 07:43 WBC 7.49 (4.8-10.8) K/ul RBC 3.88 L (3.93-5.22) M/uL Hgb 12.0 (12.0-16.0) g/dl Hct 35.0 (34.1-44.9) % MCV 90.2 (80.0-100.0) fL MCH 30.9 (25.0-34.0) pg MCHC 34.3 (32.0-36.0) g/dL RDW Std Deviation 39.8 (36.4-46.3) fL RDW Coeff of Aashish 12.0 (11.5-14.5) % Plt Count 214 (130-400) K/uL MPV 9.2 L (9.4-12.3) fL Immature Gran % (Auto) 0.4 % Neut % (Auto) 66.6 % Lymph % (Auto) 24.6 % [place] % (Auto) 6.0 % Eos % (Auto) 2.1 % Baso % (Auto) 0.3 % Neut # (Auto) 4.99 (1.4-6.5) K/uL Lymph # (Auto) 1.84 (1.2-3.4) K/uL [place] # (Auto) 0.45 (0.24-0.82) K/uL Eos # (Auto) 0.16 (0-0.50) K/uL Baso # (Auto) 0.02 (0-0.2) K/uL Immature Gran # (Auto) 0.03 H (0.00-0.02) K/uL Sodium 143 (136-145) mmol/L Potassium 4.1 D (3.5-5.1) mmol/L Chloride 107 (98-107) mmol/L Carbon Dioxide 33 H (21-32) mmol/L Anion Gap 3 (3-11) BUN 14 (6-23) mg/dl Creatinine 0.70 (0.6-1.2) mg/dl Est Cr Clr Drug Dosing 53.6 ml/min Est GFR ( Amer) 91.6 ml/min Est GFR (Non-Af Amer) 79.0 ml/min BUN/Creatinine Ratio 20.0 (10-20) Glucose 96 (70-99(Fasting)) mg/dl Calcium 8.5 (8.5-10.1) mg/dl Magnesium 1.9 (1.7-2.4) mg/dl Total Bilirubin 0.7 (0.2-1.0) mg/dl AST 79 H (13-39) U/L ALT 56 H (7-52) U/L Alkaline Phosphatase 76 (34-104) U/L Total Creatine Kinase 1056 H (26-192) U/L Total Protein 5.8 L (6.0-8.3) gm/dl Albumin 3.3 L (3.4-5.0) gm/dl Globulin 2.5 (2.5-4.0) gm/dl Albumin/Globulin Ratio 1.3 (0.9-2) Diagnostic Findings Chest x-ray image personally reviewed by me and agree with following report: Chest X-Ray 01/28/22 13:26 XR chest 1V portable CLINICAL HISTORY: influenza,hypoxia,assess for PNA TECHNIQUE: Single frontal radiograph of the chest was obtained. Comparison: Comparison is made to chest radiograph 01/26/2022 FINDINGS: No lines and tubes are seen. Cardiomegaly is noted. The aortic arch is calcified. Retrocardiac airspace opacities are noted. There may be a small left pleural effusion. IMPRESSION: Possible left pleural effusion. Left retrocardiac airspace opacities may represent atelectasis, pneumonia, and/or aspiration. ACT 112: Negative or not required by law. Electronically signed by: Jak Casiano M.D. 01/28/2022 3:57 PM PG Care Time/CCT Total # of Minutes Spent Total Time Spent with Patient: Total time spent is greater than 50% in coordination of care (as documented) at patient's floor/unit and/or counseling patient: Coding Level of Care Code 02625 Subseq Hosp Care Lvl 3 Diagnoses Influenza A J10.1 Sepsis A41.9 Pneumonia J18.9 Acute respiratory failure with hypoxia J96.01 Rhabdomyolysis M62.82 Elevated troponin R77.8 LFT elevation R79.89 Sinus tachycardia R00.0 Weakness R53.1 History of CVA (cerebrovascular accident) Z86.73 Neurologic gait disorder R26.9 Hyperlipidemia E78.5 MGUS (monoclonal gammopathy of unknown significance) D47.2 Adrenal nodule E27.8 Constipation K59.00
[2022-01-28] MEDS: ALBUT/IPRATROP 3MG/0.5MG NEB 3 ML VIAL INH SCH ×2 (13:40→19:40)
[2022-01-28] MEDS ORDERED: AZITHROMYCIN 500 MG in DEXTROSE 5% 250 ML IV ONE (14:00)
[2022-01-28] MEDS: guaiFENesin/DEXTROM SYRUP 200MG/20MG 10ML UDC PO SCH ×2 (14:34→20:28)
[2022-01-28] MEDS: cefTRIAXone SODIUM 1,000 MG in DEXTROSE 5% AD-VAN 50 ML IV SCH (14:34)
[2022-01-28] MEDS: ENOXAPARIN INJ 40 MG/0.4 ML SYR SQ SCH (15:24)
--- NOTE | 2022-01-28 15:59 | XRay Report ---
XR chest 1V portable CLINICAL HISTORY: influenza,hypoxia,assess for PNA TECHNIQUE: Single frontal radiograph of the chest was obtained. Comparison: Comparison is made to chest radiograph 01/26/2022 FINDINGS: No lines and tubes are seen. Cardiomegaly is noted. The aortic arch is calcified. Retrocardiac airspa ce opacities are noted. There may be a small left pleural effusion. IMPRESSION: Possible left pleural effusion. Left retrocardiac airspace opacities may represent atelectasis, pneum onia, and/or aspiration. ACT 112: Negative or not required by law. Electronically signed by: Jak Casiano M.D. 01/28/2022 3:57 PM
[2022-01-28] MEDS: ASPIRIN 81 MG ECTAB PO SCH (20:27)
[2022-01-28] MEDS: POLYETHYLENE (MIRALAX) 17 GM PACK PO SCH (20:27)
[2022-01-28] MEDS: MELATONIN 3 MG TAB PO PRN (21:58)
[2022-01-29] MEDS: ALBUT/IPRATROP 3MG/0.5MG NEB 3 ML VIAL INH SCH ×4 (01:09→18:05)
[2022-01-29] MEDS: guaiFENesin/DEXTROM SYRUP 200MG/20MG 10ML UDC PO SCH ×4 (03:11→19:59)
[2022-01-29 06:50] LABS: Basophils # (auto) 0.02 K/uL (0-0.2); Basophils % (auto) 0.3 %; Eosinophils # (auto) 0.22 K/uL (0-0.50); Eosinophils % (auto) 3.6 %; Hematocrit (blood only) 33.3 % (34.1-44.9); Hemoglobin 11.5 g/dl (12.0-16.0); Immature Granulocytes # (auto) 0.03 K/uL (0.00-0.02); Immature Granulocytes % (auto) 0.5 %; Lymphocytes # (auto) 1.57 K/uL (1.2-3.4); Mean Corpuscular Hemoglobin 30.7 pg (25.0-34.0); Mean Corpuscular Hgb Conc 34.5 g/dL (32.0-36.0); Mean Platelet Volume 8.8 fL (9.4-12.3); Monocytes # (auto) 0.42 K/uL (0.24-0.82); Neutrophils # (auto) 3.78 K/uL (1.4-6.5); Neutrophils % (auto) 62.6 %; Platelet Count 217 K/uL (130-400); RDW Coefficient of Variation 11.9 % (11.5-14.5); RDW Standard Deviation 38.7 fL (36.4-46.3); Red Blood Count 3.74 M/uL (3.93-5.22); White Blood Count 6.04 K/ul (4.8-10.8)
[2022-01-29 07:12] LABS: Albumin Globulin Ratio 1.2 (0.9-2); Albumin Level 3.1 gm/dl (3.4-5.0); BUN Creatinine Ratio 16.9 (10-20); Bilirubin,Total 0.5 mg/dl (0.2-1.0); Calcium 8.4 mg/dl (8.5-10.1); Creatinine Clr Calc Pharmacy 57.7 ml/min; Est GFR (African American) 93.8 ml/min; Globulin 2.6 gm/dl (2.5-4.0); Potassium 3.7 mmol/L (3.5-5.1); Total Protein 5.7 gm/dl (6.0-8.3)
[2022-01-29] MEDS: AZITHROMYCIN 250 MG TAB PO SCH (09:57)
[2022-01-29] MEDS: CYANOCOBALAMIN (B-12) 500 MCG TABLET PO SCH (09:58)
[2022-01-29] MEDS: CALCIUM 600MG + VIT D 400 IU TAB PO SCH ×2 (10:00→19:59)
[2022-01-29] MEDS: CHOLECALCIFEROL 5,000 UNITS 125 MCG TAB PO SCH (10:00)
[2022-01-29] MEDS: OSELTAMIVIR PHOSPHATE SUSP 30 MG/5 ML UDP PO SCH ×2 (10:08→20:00)
[2022-01-29] MEDS: cefTRIAXone SODIUM 1,000 MG in DEXTROSE 5% AD-VAN 50 ML IV SCH (13:29)
[2022-01-29] MEDS: ENOXAPARIN INJ 40 MG/0.4 ML SYR SQ SCH (13:29)
--- NOTE | 2022-01-29 19:37 | Hospitalist Progress Note ---
Date of Service January 29, 2022 Assessment & Plan (1) Influenza A: Plan: - Positive for influenza A 01/25,presented with 2 days of weakness, body aches, fevers, nausea, mildly productive cough - Patient is vaccinated for both influenza and COVID. -With acute respiratory failure with hypoxia, now weaned down to 2 LNC Continues with frequent cough, and worsening malaise, but afebrile now Crackles noted on examination on 01/28-repeat chest x-ray now shows left retr ocardiac pneumonia and trace pleural effusion - continue Tamiflu, renally dosed 30 mg twice daily x 5 day course-last dose will be 02/01 -continue supportive care such as Tylenol for fever/pain -continue pulm toilet with flutter valve/incentive spirometry -Will schedule DuoNebs and schedule guaifenesin DM every 6 hours -Maintain isolation precautions for influenza. -Treatment with antibiotics for pneumonia as below (2) Sepsis: Plan: - T 38.4 C, HR > 110s. Now improving-no longer febrile but malaise worsening, development of secondary bacterial pneumonia BCxs remain NGTD Procal negative x 2 on admission and the next day, lactate neg, initially did not suspect bacterial PNA, but now with development of pneumonia on chest x-ray in a lobar fashion suggestive of bacterial pneumonia - Secondary to influenza A and secondary bacterial pneumonia. -IV fluids given initially but then discontinued on hospital day #2 Hemodynamically stable -Treating with Tamiflu, stared ceftriaxone and azithromycin on 01/28 (3) Pneumonia: Plan: As above Starting antibiotics Follow chest x-ray to resolution (4) Acute respiratory failure with hypoxia: Plan: 2/2 influenza and pneumonia continue supplemental O2 and wean off as tolerated Make DuoNebs scheduled (5) Rhabdomyolysis: Plan: CK almost 5000 on admission, with h/o recent fall and elevated AST,ALT all now much improved after IVF hydration CK down to 1000 No further IV fluids since 01/27 (6) Elevated troponin: Plan: - Suspect this is demand ischemia in setting of febrile illness with tachycardia, possibly hypoxia over past few days at home. - Troponin 168 on admission and peaked at 173; EKG without any concerning ST segment or T wave changes; ECHO with EF>70, no WMAs, and small pericardial effusion (unchanged from previous) (7) LFT elevation: Plan: - T. bili 1.3, D bili 0.3, AST 160, ALT 70. LFTs all now continuing to improve Secondary to rhabdo and influenza-follow transaminases RUQ US normal no abd pain (8) Sinus tachycardia: Plan: - At baseline she tends to be tachycardic to the [id number], suspect is slightly elevated in the setting of infection/fever, will be on telemetry unit. - Previously wore Holter monitor April of this year that noted sinus tachycardia with occasional PVCs but no significant dysrhythmias during her falls. Now resolved for the most part Will discontinue telemetry tomorrow if remains stable Looks quite euvolemic (9) Weakness: Plan: - Balance and frequent falls is an ongoing issue for the patient which she is followed with neurology and has had hospitalizations previously for this. Weakness likely baseline and exacerbated with influenza. - PT/OT will be ordered for patient admitted. Patient may require placement after hospitalization due to deconditioning or recovering from flu. (10) History of CVA (cerebrovascular accident): Plan: - Brain MRI on 03/2021 showed "cerebral cortical atrophy and very prominent re mote small vessel disease". - Continue aspirin for secondary prevention; statin on hold for LFT elevation. 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 - PT/OT as above, fall precautions in place. (12) Hyperlipidemia: Plan: - Hold statin for now given elevated LFTs. (13) MGUS (monoclonal gammopathy of unknown significance): Plan: - Has follow-up with Dr. Dustin nciole/ libra/onc as recently as earlier this month, she has no clinical symptoms to suggest progression of multiple myleoma. - Current plan is to continue observation with follow-up in 6 months to obtain labs including SPEP with HENRIETTA, quantitative immunoglobulins, serum free light chains and 24-hour UPEP with HENRIETTA. (14) Adrenal nodule: Plan: incidental right 1.8 cm nodule stable from previous seen on RUQ US here follow as outpt (15) Constipation: Plan: chronic no BM since 01/23 but then had 1 on 01/28 Continue prune juice as needed Continue miralax qhs and docusate prn Plan - continued stay on med/tele, slow improvement - SCDs, Lovenox for VTE ppx. - DNR/DNI. Offered to call her family but she declined for me to do so at this time. SHe is updating them Admission and Anticipated Discharge Date Admission Date: January 26, 2022 Subjective at 1535 h, stated she was here because she been falling a lot and getting weaker over the last 2 days with shortness of breath. Had used her walker to walk to the bathroom and then fallen and lost consciousness just before this admission she thinks. No nauseousness, vomiting or diarrhea. Denies depressed mood. 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 Physical Exam Physical Exam: Pleasant moderately built lady, looks much younger, sitting up comfortably in bed Head and neck moist Chest clear to auscultation Abdomen slightly distended Extremities no edema [employer] grossly intact Psych normal insight and judgment Results & Data Results & Data ([facility]) Vital Signs (Past 12 Hours) Vital Signs Temp Pulse Pulse Resp BP Pulse Ox O2 Del Method 01/29/22 16:00 108 H 01/29/22 08:00 Nasal Cannula 01/29/22 14:50 37.0 C 110 H 18 137/79 92 Nasal Cannula 01/29/22 13:12 84 18 97 Nasal Cannula 01/29/22 08:26 92 H 18 96 Nasal Cannula 01/29/22 07:52 36.7 C 89 18 130/79 97 Room Air O2 Flow Rate 01/29/22 16:00 01/29/22 08:00 2 01/29/22 14:50 2 01/29/22 13:12 2 01/29/22 08:26 01/29/22 07:52 Laboratory Results Abnormal lab results 01/29/22 01/29/22 Range/Units 06:38 06:38 RBC 3.74 L (3.93-5.22) M/uL Hgb 11.5 L (12.0-16.0) g/dl Hct 33.3 L (34.1-44.9) % MPV 8.8 L (9.4-12.3) fL Immature Gran # (Auto) 0.03 H (0.00-0.02) K/uL Carbon Dioxide 34 H (21-32) mmol/L Glucose 112 H (70-99(Fasting)) mg/dl Calcium 8.4 L (8.5-10.1) mg/dl AST 70 H (13-39) U/L ALT 69 H (7-52) U/L Total Creatine Kinase 377 H (26-192) U/L Total Protein 5.7 L (6.0-8.3) gm/dl Albumin 3.1 L (3.4-5.0) gm/dl Medications Administered Home Medications Medication Instructions Recorded Confirmed Last Taken cholecalciferol (vitamin D3) 125 5,000 unit PO QAM 10/12/17 01/26/22 08/14/18 mcg (5,000 unit) tablet (Vitamin D3) polyethylene glycol 3350 17 gram 17 g PO HS 10/12/17 01/26/22 08/13/18 oral powder packet (Miralax) risedronate 35 mg tablet (Actonel) 35 mg PO WEEKLY #4 tabs 08/01/18 01/26/22 08/10/18 mecobalamin (vitamin B12) 1,000 1,000 mcg PO QAM 04/07/19 01/26/22 Unknown mcg chewable tablet aspirin 81 mg tablet,delayed 81 mg PO HS 10/14/19 01/26/22 Unknown release (Adult Aspirin Regimen) atorvastatin 40 mg tablet 40 mg PO DAILY #90 tabs 05/18/21 01/26/22 Unknown melatonin 5 mg tablet 5 mg PO HS PRN sleep 11/21/21 01/26/22 Unknown benztropine 1 mg tablet 1 mg PO BID PRN drooling #30 tabs 01/20/22 01/26/22 Unknown acetaminophen 650 mg 650 mg PO Q8H PRN Pain 01/26/22 01/26/22 Unknown tablet,extended release (Tylenol Arthritis Pain) calcium carbonate 600 mg-vitamin 1 tab PO BID 01/26/22 01/26/22 Unknown D3 20 mcg (800 unit) tablet (Caltrate with Vitamin D3) Active Medications Generic Name Dose Route Start Last Admin Trade Name Freq PRN Reason Stop Dose Admin Acetaminophen 650 mg 01/26/22 14:03 01/27/22 15:10 Acetaminophen 325 Mg Tab PO 02/25/22 14:02 650 mg Q4H PRN Administration Pain or Fever Albuterol 3 ml 01/28/22 13:30 01/29/22 18:05 Albut/Ipratrop 3mg/0.5mg Neb 3 Ml Vial INH 02/27/22 13:29 3 ml Q6R PRIMO Administration Aspirin 81 mg 01/26/22 21:00 01/28/22 20:27 Aspirin 81 Mg Ectab PO 02/25/22 20:59 81 mg HS PRIMO Administration Azithromycin 250 mg 01/29/22 09:00 01/29/22 09:57 Azithromycin 250 Mg Tab PO 02/01/22 09:01 250 mg QAM PRIMO Administration Calcium/Vitamin D 1 tab 01/26/22 21:00 01/29/22 10:00 Calcium 600mg + Vit D 400 Iu Tab PO 02/25/22 20:59 1 tab BID PRIMO Administration Cyanocobalamin 1,000 mcg 01/27/22 09:00 01/29/22 09:58 Cyanocobalamin (B-12) 500 Mcg Tablet PO 02/26/22 08:59 1,000 mcg QAM PRIMO Administration Docusate Sodium 100 mg 01/26/22 14:03 01/27/22 09:37 Docusate Sodium 100 Mg Cap PO 02/25/22 14:02 100 mg BID PRN Administration constipation Enoxaparin Sodium 40 mg 01/26/22 14:03 01/29/22 13:29 Enoxaparin Inj 40 Mg/0.4 Ml Syr SQ 02/25/22 14:02 40 mg Q24H PRIMO Administration Guaifenesin/Dextromethorphan 10 ml 01/28/22 14:00 01/29/22 13:29 Guaifenesin/Dextrom Syrup 200mg/20mg 10ml Udc PO 02/27/22 13:59 10 ml Q6H PRIMO Administration Ceftriaxone Sodium 1,000 mg/ 50 mls @ 100 mls/hr 01/28/22 13:45 01/29/22 14:00 Dextrose IV 02/04/22 13:44 Infused Q24H PRIMO Infusion Protocol Melatonin 3 mg 01/26/22 22:47 01/28/22 21:58 Melatonin 3 Mg Tab PO 02/25/22 14:07 3 mg HS PRN Administration sleep Protocol Oseltamivir Phosphate 30 mg 01/27/22 09:00 01/29/22 10:08 Oseltamivir Phosphate Susp 30 Mg/5 Ml Udp PO 02/01/22 08:59 30 mg BID PRIMO Administration Protocol Polyethylene Glycol 17 gm 01/26/22 21:00 12/24/22 20:27 Polyethylene (Miralax) 17 Gm Pack PO 02/25/22 20:59 17 gm HS PRIMO Administration Vitamin D 5,000 units 01/27/22 09:00 01/29/22 10:00 Cholecalciferol 5,000 Units 125 Mcg Tab PO 02/26/22 08:59 5,000 units QAM PRIMO Administration PG Care Time/CCT Total # of Minutes Spent Total Time Spent with Patient: Total time spent is greater than 50% in coordination of care (as documented) at patient's floor/unit and/or counseling patient: Coding Level of Care Code 33026 Subseq Hosp Care Lvl 2 Diagnoses Influenza A J10.1 Sepsis A41.9 Pneumonia J18.9 Acute respiratory failure with hypoxia J96.01 Rhabdomyolysis M62.82 Elevated troponin R77.8 LFT elevation R79.89 Sinus tachycardia R00.0 Weakness R53.1 History of CVA (cerebrovascular accident) Z86.73 Neurologic gait disorder R26.9 Hyperlipidemia E78.5 MGUS (monoclonal gammopathy of unknown significance) D47.2 Adrenal nodule E27.8 Constipation K59.00
[2022-01-29] MEDS: ASPIRIN 81 MG ECTAB PO SCH (19:59)
[2022-01-29] MEDS: ACETAMINOPHEN 325 MG TAB PO PRN (20:00)
[2022-01-29] MEDS: POLYETHYLENE (MIRALAX) 17 GM PACK PO SCH (20:06)
[2022-01-29 20:53] LABS: Albumin Globulin Ratio 1.3 (0.9-2); Albumin Level 3.6 gm/dl (3.4-5.0); BUN Creatinine Ratio 17.1 (10-20); Bilirubin,Total 0.4 mg/dl (0.2-1.0); Calcium 8.6 mg/dl (8.5-10.1); Creatinine Clr Calc Pharmacy 49.3 ml/min; Est GFR (African American) 82.9 ml/min; Est GFR (Non-African American) 71.5 ml/min; Globulin 2.7 gm/dl (2.5-4.0); Potassium 3.6 mmol/L (3.5-5.1); Total Protein 6.3 gm/dl (6.0-8.3)
[2022-01-29] MEDS: MELATONIN 3 MG TAB PO PRN (21:24)
[2022-01-30] MEDS: ALBUT/IPRATROP 3MG/0.5MG NEB 3 ML VIAL INH SCH ×4 (01:27→19:40)
[2022-01-30] MEDS: guaiFENesin/DEXTROM SYRUP 200MG/20MG 10ML UDC PO SCH ×4 (03:30→20:42)
[2022-01-30] MEDS: CHOLECALCIFEROL 5,000 UNITS 125 MCG TAB PO SCH (09:05)
[2022-01-30] MEDS: CALCIUM 600MG + VIT D 400 IU TAB PO SCH ×2 (09:05→20:42)
[2022-01-30] MEDS: AZITHROMYCIN 250 MG TAB PO SCH (09:05)
[2022-01-30] MEDS: CYANOCOBALAMIN (B-12) 500 MCG TABLET PO SCH (09:05)
[2022-01-30] MEDS: OSELTAMIVIR PHOSPHATE SUSP 30 MG/5 ML UDP PO SCH ×2 (09:06→20:42)
[2022-01-30] MEDS: ENOXAPARIN INJ 40 MG/0.4 ML SYR SQ SCH (09:06)
[2022-01-30 12:18] LABS: Albumin Level 3.4 gm/dl (3.4-5.0); Bilirubin Direct 0.2 mg/dl (0-0.2); Bilirubin,Total 0.6 mg/dl (0.2-1.0); Total Protein 6.2 gm/dl (6.0-8.3)
--- NOTE | 2022-01-30 12:46 | Hospitalist Progress Note ---
Date of Service January 30, 2022 Assessment & Plan (1) Influenza A: Plan: - Positive for influenza A 01/25,presented with 2 days of weakness, body aches, fevers, nausea, mildly productive cough - Patient is vaccinated for both influenza and COVID. -With acute respiratory failure with hypoxia, now weaned down to 2 LNC Continues with frequent cough, and worsening malaise, but afebrile now Crackles noted on examination on 01/28-repeat chest x-ray now shows left retr ocardiac pneumonia and trace pleural effusion - continue Tamiflu, renally dosed 30 mg twice daily x 5 day course-last dose will be 02/01 -continue supportive care such as Tylenol for fever/pain -continue pulm toilet with flutter valve/incentive spirometry DuoNebs and schedule guaifenesin DM every 6 hours -Maintain isolation precautions for influenza. Azithromycin day 2 Still coughing a lot and feels weak. Son is coming tonight to stay with her for some time. Can discharge home tomorrow (2) Sepsis: Plan: - T 38.4 C, HR > 110s. Now improving-no longer febrile but malaise worsening, development of secondary bacterial pneumonia BCxs remain NGTD Procal negative x 2 on admission and the next day, lactate neg, initially did not suspect bacterial PNA, but now with development of pneumonia on chest x-ray started antibiotics for pneumonia-only azithromycin continued - Secondary to influenza A and secondary bacterial pneumonia. -IV fluids given initially but then discontinued on hospital day #2 Hemodynamically stable -Resolved (3) Pneumonia: Plan: As above Starting antibiotics Follow chest x-ray to resolution (4) Acute respiratory failure with hypoxia: Plan: 2/2 influenza and pneumonia continue supplemental O2 and wean off as tolerated Make DuoNebs scheduled (5) Rhabdomyolysis: Plan: CK almost 5000 on admission, with h/o recent fall and elevated AST,ALT all now much improved after IVF hydration CK down to 1000 No further IV fluids since 01/27 (6) Elevated troponin: Plan: - Suspect this is demand ischemia in setting of febrile illness with tachycardia, possibly hypoxia over past few days at home. - Troponin 168 on admission and peaked at 173; EKG without any concerning ST segment or T wave changes; ECHO with EF>70, no WMAs, and small pericardial effusion (unchanged from previous) (7) LFT elevation: Plan: - T. bili 1.3, D bili 0.3, AST 160, ALT 70. LFTs all now continuing to improve Secondary to rhabdo and influenza-follow transaminases 01/30 AST is gone down today and ALT is higher RUQ US normal no abd pain (8) Sinus tachycardia: Plan: - At baseline she tends to be tachycardic to the [id number], suspect is slightly elevated in the setting of infection/fever, will be on telemetry unit. - Previously wore Holter monitor April of this year that noted sinus tachycardia with occasional PVCs but no significant dysrhythmias during her falls. Now resolved for the most part Euvolemic and discontinued telemetry /26had sinus tachycardia before (9) Weakness: Plan: - Balance and frequent falls is an ongoing issue for the patient which she is followed with neurology and has had hospitalizations previously for this. Weakness likely baseline and exacerbated with influenza. - PT/OT will be ordered for patient admitted. Patient may require placement after hospitalization due to deconditioning or recovering from flu. (10) History of CVA (cerebrovascular accident): Plan: - Brain MRI on 03/2021 showed "cerebral cortical atrophy and very prominent remote small vessel disease". - Continue aspirin for secondary prevention; statin on hold for LFT elevation. 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 - PT/OT as above, fall precautions in place. (12) Hyperlipidemia: Plan: - Hold statin for now given elevated LFTs. (13) MGUS (monoclonal gammopathy of unknown significance): Plan: - Has follow-up with Dr. Dustin nicole/ libra/onc as recently as earlier this month, she has no clinical symptoms to suggest progression of multiple myleoma. - Current plan is to continue observation with follow-up in 6 months to obtain labs including SPEP with HENRIETTA, quantitative immunoglobulins, serum free light chains and 24-hour UPEP with HENRIETTA. (14) Adrenal nodule: Plan: incidental right 1.8 cm nodule stable from previous seen on RUQ US here follow as outpt (15) Constipation: Plan: chronic no BM since 01/23 but then had 1 on 01/28 Continue prune juice as needed Continue miralax qhs and docusate prn Plan - Plan discharge home in the morning-continue home physical therapy twice a week. Admission and Anticipated Discharge Date Admission Date: January 26, 2022 Subjective Around noon, the patient was eating lunch. Wanted her right elbow x-rayed because it has been hurting when she uses her right hand. Says her left eye was black after she fell but it is improved now Still coughing Is physical therapy twice a week at home. Her son is coming tonight. Wonders if influenza is contagious as he is diabetic Physical Exam Physical Exam: Alert pleasant lady, looks much younger, lucid historian comfortable on room air at 92% this morning and 95% tonight Mild tenderness left cheekbone but no ecchymosis on the face, Chest clear to auscultation Abdomen lax nontender Extremities no edema Painless passive range of motion both elbows, no tenderness over the olecranons Results & Data Results & Data ([facility]) Vital Signs (Past 12 Hours) Vital Signs Temp Pulse Pulse Resp BP Pulse Ox O2 Del Method 01/30/22 08:00 102 H 01/30/22 08:00 Room Air 01/30/22 11:17 36.7 C 94 H 20 143/83 H 92 Room Air 01/30/22 07:37 36.8 C 96 H 20 136/77 95 Room Air 01/30/22 05:51 87 18 97 Nasal Cannula 01/30/22 03:29 36.7 C 94 H 18 142/79 H 95 Nasal Cannula 01/30/22 01:28 18 94 Nasal Cannula 01/30/22 00:54 94 H O2 Flow Rate 01/30/22 08:00 01/30/22 08:00 01/30/22 11:17 01/30/22 07:37 01/30/22 05:51 1 01/30/22 03:29 2 01/30/22 01:28 1.5 01/30/22 00:54 Laboratory Results Abnormal lab results 01/29/22 01/30/22 Range/Units 20:07 11:25 Carbon Dioxide 34 H (21-32) mmol/L Glucose 125 H (70-99(Fasting)) mg/dl AST 80 H 68 H (13-39) U/L ALT 88 H 91 H (7-52) U/L Alkaline Phosphatase 117 H 122 H (34-104) U/L Medications Administered Home Medications Medication Instructions Recorded Confirmed Last Taken cholecalciferol (vitamin D3) 125 5,000 unit PO QAM 10/12/17 01/26/22 08/14/18 mcg (5,000 unit) tablet (Vitamin D3) polyethylene glycol 3350 17 gram 17 g PO HS 10/12/17 01/26/22 08/13/18 oral powder packet (Miralax) risedronate 35 mg tablet (Actonel) 35 mg PO WEEKLY #4 tabs 08/01/18 01/26/22 08/10/18 mecobalamin (vitamin B12) 1,000 1,000 mcg PO QAM 04/07/19 01/26/22 Unknown mcg chewable tablet aspirin 81 mg tablet,delayed 81 mg PO HS 10/14/19 01/26/22 Unknown release (Adult Aspirin Regimen) atorvastatin 40 mg tablet 40 mg PO DAILY #90 tabs 05/18/21 01/26/22 Unknown melatonin 5 mg tablet 5 mg PO HS PRN sleep 11/21/21 01/26/22 Unknown benztropine 1 mg tablet 1 mg PO BID PRN drooling #30 tabs 01/20/22 01/26/22 Unknown acetaminophen 650 mg 650 mg PO Q8H PRN Pain 01/26/22 01/26/22 Unknown tablet,extended release (Tylenol Arthritis Pain) calcium carbonate 600 mg-vitamin 1 tab PO BID 01/26/22 01/26/22 Unknown D3 20 mcg (800 unit) tablet (Caltrate with Vitamin D3) Active Medications Generic Name Dose Route Start Last Admin Trade Name Freq PRN Reason Stop Dose Admin Acetaminophen 650 mg 01/26/22 14:03 01/29/22 20:00 Acetaminophen 325 Mg Tab PO 02/25/22 14:02 650 mg Q4H PRN Administration Pain or Fever Albuterol 3 ml 01/28/22 13:30 01/30/22 19:40 Albut/Ipratrop 3mg/0.5mg Neb 3 Ml Vial INH 02/27/22 13:29 3 ml Q6R PRIMO Administration Aspirin 81 mg 01/26/22 21:00 01/30/22 20:42 Aspirin 81 Mg Ectab PO 02/25/22 20:59 81 mg HS PRIMO Administration Azithromycin 250 mg 01/29/22 09:00 01/30/22 09:05 Azithromycin 250 Mg Tab PO 02/01/22 09:01 250 mg QAM PRIMO Administration Benzonatate 100 mg 01/28/22 13:28 01/30/22 09:09 Benzonatate 100 Mg Capsule PO 02/27/22 13:27 100 mg Q6H PRN Administration Cough Calcium/Vitamin D 1 tab 01/26/22 21:00 01/30/22 20:42 Calcium 600mg + Vit D 400 Iu Tab PO 02/25/22 20:59 1 tab BID PRIMO Administration Cyanocobalamin 1,000 mcg 01/27/22 09:00 01/30/22 09:05 Cyanocobalamin (B-12) 500 Mcg Tablet PO 02/26/22 08:59 1,000 mcg QAM PRIMO Administration Docusate Sodium 100 mg 01/26/22 14:03 01/27/22 09:37 Docusate Sodium 100 Mg Cap PO 02/25/22 14:02 100 mg BID PRN Administration constipation Enoxaparin Sodium 40 mg 01/26/22 14:03 01/30/22 09:06 Enoxaparin Inj 40 Mg/0.4 Ml Syr SQ 02/25/22 14:02 40 mg Q24H PRIMO Administration Guaifenesin/Dextromethorphan 10 ml 01/28/22 14:00 01/30/22 20:42 Guaifenesin/Dextrom Syrup 200mg/20mg 10ml Udc PO 02/27/22 13:59 10 ml Q6H PRIMO Administration Melatonin 3 mg 01/26/22 22:47 01/29/22 21:24 Melatonin 3 Mg Tab PO 02/25/22 14:07 3 mg HS PRN Administration sleep Protocol Oseltamivir Phosphate 30 mg 01/27/22 09:00 01/30/22 20:42 Oseltamivir Phosphate Susp 30 Mg/5 Ml Udp PO 02/01/22 08:59 30 mg BID PRIMO Administration Protocol Polyethylene Glycol 17 gm 01/26/22 21:00 01/30/22 20:41 Polyethylene (Miralax) 17 Gm Pack PO 02/25/22 20:59 17 gm HS PRIMO Administration Vitamin D 5,000 units 01/27/22 09:00 01/30/22 09:05 Cholecalciferol 5,000 Units 125 Mcg Tab PO 02/26/22 08:59 5,000 units QAM PRIMO Administration PG Care Time/CCT Total # of Minutes Spent Total Time Spent with Patient: Total time spent is greater than 50% in coordination of care (as documented) at patient's floor/unit and/or counseling patient: Coding Level of Care Code 01886 Subseq Hosp Care Lvl 2 Diagnoses Influenza A J10.1 Sepsis A41.9 Pneumonia J18.9 Acute respiratory failure with hypoxia J96.01 Rhabdomyolysis M62.82 Elevated troponin R77.8 LFT elevation R79.89 Sinus tachycardia R00.0 Weakness R53.1 History of CVA (cerebrovascular accident) Z86.73 Neurologic gait disorder R26.9 Hyperlipidemia E78.5 MGUS (monoclonal gammopathy of unknown significance) D47.2 Adrenal nodule E27.8 Constipation K59.00
[2022-01-30] MEDS: POLYETHYLENE (MIRALAX) 17 GM PACK PO SCH (20:41)
[2022-01-30] MEDS: ASPIRIN 81 MG ECTAB PO SCH (20:42)
[2022-01-30] MEDS: MELATONIN 3 MG TAB PO PRN (20:57)
[2022-01-30 22:06] LABS: Albumin Globulin Ratio 1.2 (0.9-2); Albumin Level 3.6 gm/dl (3.4-5.0); BUN Creatinine Ratio 21.8 (10-20); Bilirubin,Total 0.5 mg/dl (0.2-1.0); Calcium 8.9 mg/dl (8.5-10.1); Creatinine Clr Calc Pharmacy 48.5 ml/min; Est GFR (African American) 80.3 ml/min; Est GFR (Non-African American) 69.3 ml/min; Globulin 2.9 gm/dl (2.5-4.0); Potassium 3.6 mmol/L (3.5-5.1); Total Protein 6.5 gm/dl (6.0-8.3)
[2022-01-31] MEDS: ALBUT/IPRATROP 3MG/0.5MG NEB 3 ML VIAL INH SCH ×3 (01:30→13:21)
[2022-01-31] MEDS: guaiFENesin/DEXTROM SYRUP 200MG/20MG 10ML UDC PO SCH ×2 (02:07→07:52)
[2022-01-31] MEDS: AZITHROMYCIN 250 MG TAB PO SCH (07:52)
[2022-01-31] MEDS: CALCIUM 600MG + VIT D 400 IU TAB PO SCH (07:52)
[2022-01-31] MEDS: ENOXAPARIN INJ 40 MG/0.4 ML SYR SQ SCH (07:53)
[2022-01-31] MEDS: CYANOCOBALAMIN (B-12) 500 MCG TABLET PO SCH (07:53)
[2022-01-31] MEDS: CHOLECALCIFEROL 5,000 UNITS 125 MCG TAB PO SCH (07:53)
[2022-01-31] MEDS: OSELTAMIVIR PHOSPHATE SUSP 30 MG/5 ML UDP PO SCH (08:03)
[2022-01-31] MEDS ORDERED: CEFDINIR 300 MG CAP PO SCH (10:00)
[2022-01-31 11:16] LABS: Albumin Globulin Ratio 1.2 (0.9-2); Albumin Level 3.6 gm/dl (3.4-5.0); BUN Creatinine Ratio 21.7 (10-20); Bilirubin,Total 0.6 mg/dl (0.2-1.0); Calcium 9.4 mg/dl (8.5-10.1); Creatinine Clr Calc Pharmacy 55.1 ml/min; Est GFR (Non-African American) 79.4 ml/min; Globulin 2.9 gm/dl (2.5-4.0); Potassium 3.7 mmol/L (3.5-5.1); Total Protein 6.5 gm/dl (6.0-8.3)
--- NOTE | 2022-01-31 11:32 | Discharge Summary ---
Date of Service January 31, 2022 Admission HPI Per Admitting Provider Jeanette Tavarez is an 86-year-old female with past medical history significant for previous CVA, hyperlipidemia, LVH, tachycardia, PVCs, parkinsonism, neuropathy, frequent falls, and MGUS who presented today with generalized weakness and fever. She did have a fall on the evening of 01/24 and was evaluated in our ED with imaging, no acute fractures or intracranial findings at the time and per her request she was discharged home. Since then she has not had any more falls but has developed generalized body aches, severe weakness, and fevers at home. She has also developed a loose cough with mild sputum production and her appetite has not been great over the past 2 days. Mildly nauseous without any vomiting, abdominal pain, diarrhea, constipation, or dysuria. On presentation to the ED, she is febrile 38.4 C, HR 117, BP 153/98, 93% on room air. She is positive for influenza A, with troponin of 168, AST 168, ALT 170, T bili 1.3, D bili 0.3, calcium 7.9, potassium 3.4. Without leukocytosis, lactate 0.9, Pro-Girish 0.08. CXR without evidence of pneumonia or other acute process. Principal Diagnosis Influenza A, Pneumonia, acute respiratory failure with hypoxia Discharge Exam Constitutional WD/WN, vitals as above Eyes + anicteric sclerae Neck trachea midline, no thyromegaly Respiratory + cough (Persistent) Auscultation: + crackles (At left base); no rhonchi and no wheezes Cardiovascular RRR, no murmur, no edema Chest (Breasts) Chest: normal inspection of chest Gastrointestinal (Abdomen) normal bowel sounds, soft, nontender, no hepatosplenomegaly Musculoskeletal Extremities: extremities normal to inspection; no cyanosis and no clubbing Skin no rashes, warm and dry Neurologic moves all extremities and awake; no focal motor deficits Psychiatric A+Ox3, euthymic affect Lymphatic no lymphedema Discharge Data Allergies Allergy/AdvReac Type Severity Reaction Status Date / Time adhesive Allergy Rash Verified 01/26/22 12:20 levetiracetam [From Kera] AdvReac Intermediate worse Verified 01/26/22 12:20 tremor codeine AdvReac Mild Vomiting Verified 01/26/22 12:20 Consultations 01/26/22 11:17 ED Decision to Admit Stat Ordered Studies 01/27/22 US liver Routine Hospital Course (1) Influenza A: - Positive for influenza A 01/25,presented with 2 days of weakness, body aches, fevers, nausea, mildly productive cough - Patient is vaccinated for both influenza and COVID. -With acute respiratory failure with hypoxia, now weaned down to room air and passed a 2 step walk test prior to discharge Continues with mild cough but remains afebrile, malaise improved, overall much better after starting antibiotics for bacterial PNA Crackles noted on examination on 01/28-repeat chest x-ray then showed left retrocardiac pneumonia and trace pleural effusion - completed course of Tamiflu -received pulm toilet with flutter valve/incentive spirometry,DuoNebs and schedule guaifenesin DM every 6 hours (2) Sepsis: - T 38.4 C, HR > 110s. Now resolved had development of secondary bacterial pneumonia BCxs remain NGTD Procal negative x 2 on admission and the next day, lactate neg, initially did not suspect bacterial PNA, but now with development of pneumonia on chest x-ray started antibiotics for pneumonia - Secondary to influenza A and secondary bacterial pneumonia. -IV fluids given initially but then discontinued on hospital day #2 Hemodynamically stable -finish out course of azithro and cefdinir for PNA (3) Pneumonia: As above antibiotics as above Follow chest x-ray to resolution in 4-6 weeks (4) Acute respiratory failure with hypoxia: 2/2 influenza and pneumonia now resolved (5) Rhabdomyolysis: CK almost 5000 on admission, with h/o recent fall and elevated AST,ALT all now much improved after IVF hydration CK down to normal No further IV fluids since 01/27 (6) Elevated troponin: - Suspect this is demand ischemia in setting of febrile illness with tachycardia, possibly hypoxia over past few days at home. - Troponin 168 on admission and peaked at 173; EKG without any concerning ST segment or T wave changes; ECHO with EF>70, no WMAs, and small pericardial effusion (unchanged from previous) (7) LFT elevation: - T. bili 1.3, D bili 0.3, AST 160, ALT 70 on arrival LFTs all now continuing to improve Secondary to rhabdo and influenza-follow transaminases again in 1 week as an outpt RUQ US normal no abd pain (8) Sinus tachycardia: - At baseline she tends to be tachycardic to the [id number], suspect is slightly elevated in the setting of infection/fever, will be on telemetry unit. - Previously wore Holter monitor April of this year that noted sinus tachycardia with occasional PVCs but no significant dysrhythmias during her falls. Now resolved (9) Weakness: - Balance and frequent falls is an ongoing issue for the patient which she is followed with neurology and has had hospitalizations previously for this. Weakness likely baseline and exacerbated with influenza. - PT/OT recommends home with home health Right elbow pain noted close to time of discharge--> check elbow xray but do not suspect fracture based on exam with FROM, no point tenderness (10) History of CVA (cerebrovascular accident): - Brain MRI on 03/2021 showed "cerebral cortical atrophy and very prominent remote small vessel disease". 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 - PT/OT as above, fall precautions in place. (12) Hyperlipidemia: held statin for now given elevated LFTs, but now can restart (13) MGUS (monoclonal gammopathy of unknown significance): - Has follow-up with Dr. Dustin nicole/ libra/onc as recently as earlier this month, she has no clinical symptoms to suggest progression of multiple myleoma. - Current plan is to continue observation with follow-up in 6 months to obtain labs including SPEP with [facility], quantitative immunoglobulins, serum free light chains and 24-hour UPEP with [facility]ENRIET[facility]. (14) Adrenal nodule: incidental right 1.8 cm nodule stable from previous seen on RUQ US here follow as outpt (15) Constipation: chronic now resolved with laxatives Plan DVT prophylaxis-Lovenox SQ Dispo-much improved, stable for discharge to home Total Time Total Time Spent Total Time Spent (In Minutes): 35 min Discharge Plan Discharge Items Patient Disposition: Home - Home Health Services Reason For Visit: INFLUENZA A Discharge Diagnosis: Influenza A, Pneumonia, Acute respiratory failure with hypoxia, Rhabdomyolysis Condition on Discharge: Fair Activity: As commented below Lifting: Gradually increase as tolerated Bathing: No limitations Exercise/Sports: Gradually increase as tolerated Non-emergency contact: Primary Care Provider Call non-emergency contact if: you have any medication questions, your symptoms worsen and you have a fever Follow-up/Referrals: Sasha Beck MD [Primary Care Provider] - (Follow up within 1-2 weeks.) Diet: Heart Healthy Addtl Attending Provider Instructions: Please finish out one more day of the azithromycin antibiotic and 3 more days of the antibiotic called cefdinir for your pneumonia. You can continue over the counter cough syrup as needed. You completed a course of Tamiflu for your influenza. Your liver enzymes remain elevated but are improving. This was from influenza as well as from the rhabdomyolysis (muscle breakdown). Please have your PCP check your liver tests on blood work in 1 week. Pending Studies at Discharge: No Stand-Alone Forms: My [facility] [place], Smoking Cessation Medications and DC Order Prescriptions: New azithromycin 250 mg Tablet 250 mg PO QAM Qty: 1 0RF cefdinir 300 mg Capsule 300 mg PO BID Qty: 7 0RF Continued atorvastatin 40 mg tablet 40 mg PO DAILY Qty: 90 2RF benztropine 1 mg tablet 1 mg PO BID PRN (Reason: drooling) Qty: 30 3RF mecobalamin (vitamin B12) 1,000 mcg tablet,chewable 1,000 mcg PO QAM risedronate [Actonel] 35 mg tablet 35 mg PO WEEKLY Qty: 4 0RF Rx Instructions: SUNDAY aspirin [Adult Aspirin Regimen] 81 mg tablet,delayed release (DR/EC) 81 mg PO HS melatonin 5 mg tablet 5 mg PO HS PRN (Reason: sleep) polyethylene glycol 3350 [Miralax] 17 gram Powder In Packet 17 g PO HS cholecalciferol (vitamin D3) [Vitamin D3] 5,000 unit Tablet 5,000 unit PO QAM calcium carbonate-vitamin D3 [Caltrate with Vitamin D3] 600 mg-20 mcg (800 unit) Tablet 1 tab PO BID acetaminophen [Tylenol Arthritis Pain] 650 mg Tablet Extended Release 650 mg PO Q8H PRN (Reason: Pain) Discharge Orders: Discharge Order (Routine); Ordered 01/31/22 Ordered By: Fariba Marie Admission Data Admit Date/Time: 01/26/22 11:27 Attending Provider: Fariba Marie Admit Provider: Fariba Marie Primary Care Provider: Sasha Beck Other Providers: Fariba Marie Coding Level of Care Code D/C DAY MANAGEMENT >30 MINS Diagnoses Influenza A J10.1 Sepsis A41.9 Pneumonia J18.9 Acute respiratory failure with hypoxia J96.01 Rhabdomyolysis M62.82 Elevated troponin R77.8 LFT elevation R79.89 Sinus tachycardia R00.0 Weakness R53.1 History of CVA (cerebrovascular accident) Z86.73 Neurologic gait disorder R26.9 Hyperlipidemia E78.5 MGUS (monoclonal gammopathy of unknown significance) D47.2 Adrenal nodule E27.8 Constipation K59.00
--- NOTE | 2022-01-31 12:30 | XRay Report ---
XR elbow RT min 3V routine HISTORY: 86 years-old Female fall,right elbow pain,r/o fracture acute right elbow pain status post f all COMPARISON: Right humerus radiographs 01/25/2022 TECHNIQUE: 3 views of the right elbow FINDINGS: Demineralized appearance of the bones. Mild dorsal soft tissue swelling. No acute fracture, dislocati on, large joint effusion or opaque foreign body. IMPRESSION: Mild soft tissue swelling without acute fracture. ACT 112: Negative or not required by law. The above report was generated using voice recognition software. It may contain grammatical, syntax o r spelling errors. Electronically signed by: Barrera Ness M.D. 01/31/2022 12:29 PM
== END 2022-01-31 14:17 | disposition home health service (06) | DRG 871 ==
LOC: ED 09:08 → SUATTDRO 11:27 → EDINP 11:27 → 2W 16:43